=== PATIENT | male | born 1970 | race Two or more races ===

== ENCOUNTER 2024-04-30 10:03 | Emergency (ER) | payer MEDICAID, SELFPAY ==
[2024-04-30 10:12] VITALS: BP 151/89; PULSE 96; RESP 16; TEMP 36.7; O2SAT 96; BMI 27.6
--- NOTE | 2024-04-30 10:27 | EDNOTE_ITS ---
ED Skin Abcess FB-RME/HPI General Chief complaint: Skin/Abscess/Foreign Body Stated complaint: SORES BOTH ARMS x 4 DAYS Time Seen by Provider: 04/30/24 10:12 Source: patient Arrival date/time: 04/30/24 10:03 This is a 53-year-old male who presents to the emergency department with compla ints of small eruptions that appear infected to bilateral arms. Noticed the largest 1 is on the right mid forearm. He did attempt to express the 1 on the right however no discharge. Denies any other concerns. Denies fever lethargy or chills. Mode of arrival: ambulatory Limitations: no limitations Related Data Previous Rx's ?Medication ?Instructions ?Recorded mupirocin 2 % topical ointment 1 applic topical BID 7 days #22 04/30/24 grams sulfamethoxazole 800 1 tab PO BID 7 days #14 tabs 04/30/24 mg-trimethoprim 160 mg tablet (Bactrim DS) Allergies Allergy/AdvReac Type Severity Reaction Status Date / Time No Known Allergies Allergy Verified 04/30/24 10:06 Review of Systems Review of Systems Systems Reviewed: All systems reviewed, normal except as documented Narrative Review of Systems: Gen: No fever, no chills, no weight loss EYES: No discharge, no visual changes, no pain HEENT: No ear pain, no congestion, no sore throat PULM: No shortness of breath, no cough, no congestion CV: No chest pain, no dyspnea on exertion, no palpitations GI: No nausea, no vomiting, no diarrhea, no pain, no constipation : No frequency, no urgency, no dysuria Musc/skel: No joint pain, no back pain Skin: Folliculitis, skin infection. Psyc: No hallucinations, no depression Heme/Lymph: No easy bleeding or bruising tendencies Neuro: No weakness, no headache ED Exam General Limitations: Present no limitations General appearance: Present alert and in no apparent distress Head Head exam: Present atraumatic Eye Eye exam: Present normal appearance, PERRL and EOMI ENT ENT exam: Present normal exam, normal oropharynx and mucous membranes moist Neck Neck exam: Present normal inspection, full ROM and trachea midline Chest Chest inspection: Present normal inspection and symmetric chest wall rise Respiratory Respiratory exam: Present normal lung sounds bilaterally Cardiovascular Cardiovascular exam: Present regular rate, normal rhythm and normal heart sounds Abdominal Exam Abdominal exam: Present soft and normal bowel sounds Extremities Exam Extremities exam: Present full ROM Expanded Upper Extremity Exam Shoulder exam: Present normal inspection Arm exam: Present other (Bilateral arms small folliculitis and cellulitis pattern no abscess formation.) Back Exam Back exam: Present normal inspection and full ROM Neurological Exam Neurological exam: Present alert, oriented X3 and CN II-XII intact Psychiatric Psychiatric exam: Present normal affect and normal mood Skin Skin exam: Present warm, dry, intact and normal color Course Quality Measures none Orders Category Date Time Status Bedside Blood Glucose NOW Care 04/30/24 10:21 Completed cefTRIAXone [Rocephin] 1,000 mg Med 04/30/24 10:21 Discontinued Lidocaine 1% 20 ml [Xylocaine 1% 20 ML] 2.1 ml IM X1 Vital Signs Vital signs: Vital Signs Temperature 98.1 F 04/30/24 10:12 Pulse Rate 96 04/30/24 10:12 Respiratory Rate 16 04/30/24 10:12 Blood Pressure 151/89 H 04/30/24 10:12 Pulse Oximetry (%) 96 04/30/24 10:12 Oxygen Delivery Method Room Air 04/30/24 10:12 Skin / Abscess / Foreign Body MDM Narrative MDM Narrative:: 53-year-old male presents with initial presentation of local erythema, warmth, swelling concerning for cellulitis. Sensitivity/pain to light touch around the erythematous area. No lymphangitic spread visible and no fluid pockets or fluctuance c/f abscess noted. Low c/f osteomyelitis or DVT. No immune compromise, bullae, pain out of proportion, or rapid progression c/f necrotizing fasciitis. Rx: Bactrim DS twice daily 7 days, mupirocin application twice daily for 5 days. Disposition: No evidence of serious bacterial illness requiring admission for IV antibiotics. Nontoxic appearing, VSS. Will discharge home with PO antibiotics and return precautions discussed at bedside. Patient data External records reviewed:: [facility] previous records Clinical information provided by:: patient Social determinants that could affect healthcare access:: none Patient has the following chronic illnesses:: None reported How is presenting disease/condition affected by chronic disease/condition?: no chronic disease Evaluation data The following diagnostics were reviewed and interpreted by me:: other (specify) Lab and/or radiology exams considered but not ordered:: No Interpretation Summary: None Medications / Prescriptions Medications or Prescriptions considered but not ordered:: Antibiotics Medication administrations:: Medication Administration History Discontinued Medications Ceftriaxone Sodium 1,000 mg/ (Lidocaine HCl 2.1 ml) 0 mg IM X1 ONE Stop: 04/30/24 10:22 Last Admin: 04/30/24 10:31 Dose: 2.1 mg Documented By: NAV All medications administered and effective Consultations Consultation(s) initiated? (list below): No Diagnosis Skin/Abscess Differential Diagnosis: abscess of skin or subcutaneous tissue, urticaria, allergic reaction to drug, cellulitis, eczema, insect bites and contact dermatitis Most likely diagnosis given after review of the tests above:: Cellulitis forearm Admission Indicated Admission indicated?: not indicated Admission Request Was there a request for admission?: No Disposition Plan Disposition Plan: Discharge Discharge Attestation Discharge Attestation: The patient and all family members were given an opportunity to ask questions and understood the discharge instructions. Discharge instructions specifically effects, indications for sooner follow up or return to the emergency department, and the expected course of current diagnosis. Patient condition: Stable Discharge Plan Plan Patient Disposition: HOME (Self Care) Patient condition on transfer: Stable Prescriptions/Referrals Prescriptions/Med Rec: New sulfamethoxazole-trimethoprim [Bactrim DS] 800-160 mg tablet 1 tab PO BID 7 Days Qty: 14 0RF mupirocin 2 % ointment 1 applic topical BID 7 Days Qty: 22 0RF Problem List Clinical Impression: Cellulitis Patient/Caregiver Discharge Instructions Education Materials: ED Cellulitis Additional Instructions: Please keep area clean and dry apply antibiotic as directed. mri supervisor your antibiotics and take for the indicated time. Please do not pick or squeeze the area as it can worsen your symptoms. Keep areas clean and dry. Follow-up with your clinic or doctor in 2 days to follow-up Return to the emergency department this any worsening symptoms change in condition. Print Language: [place] Helen[place] Stand Alone Forms: Vani Award Info., Patient Portal Info Letter PA/RHONA Supervising Physician PA/RHONA Supervising Physician: Dr Figueroa
[2024-04-30] MEDS: cefTRIAXone 1,000 MG, LIDOCAINE 1% 20 ML 2.1 ML IM (10:31)
== END 2024-04-30 10:34 | disposition home or self-care (01) ==
LOC: SERX 10:41
PROVIDERS: Emergency Provider Emergency Medicine
DX: L03.114 Cellulitis of left upper limb (principal); L03.113 Cellulitis of right upper limb
CPT/HCPCS: 96372; 99283; J0696; J3490

== ENCOUNTER 2024-06-12 18:02 | Emergency (ER) | payer MEDICAID, SELFPAY ==
[2024-06-12 18:19] VITALS: BP 138/85; PULSE 97; RESP 20; TEMP 37.3; O2SAT 97
--- NOTE | 2024-06-12 18:30 | XR_ITS ---
Examination: Duplex scan of the lower extremity, unilateral right Date and time of exam: June 12, 2024 at 2000 hrs. Indications: Right leg redness swelling and pain beginning 4 days ago Technique: Duplex scan of the extremity veins using B-mode/grayscale imaging and Doppler spectral analysis and color flow Attention is directed to internal echogenicity, compression and augmentation involving these veins, color flow assessment, spectral analysis Findings: Major deep venous structures in the extremity demonstrate normal course and caliber. There is no evidence of deep vein thrombosis. Normal color flow and spectral analysis Impression: Negative for DVT..
--- NOTE | 2024-06-12 18:31 | PD.EDRME ---
Rapid Medical Screening Exam RME Arrival date/time: 06/12/24 18:02 53-year-old male with no significant past medical history presents emergency department complaining of right lower extremity swelling and edema that is been ongoing for 3 days. Patient reports was climbing in the attic and thinks he might have been bit by a spider. Chief Complaint: Animal Bite Time Seen by Provider: 06/12/24 18:16 Vital signs: Vital Signs Temperature 99.1 F 06/12/24 18:19 Pulse Rate 97 06/12/24 18:19 Respiratory Rate 20 06/12/24 18:19 Blood Pressure 138/85 H 06/12/24 18:19 Pulse Oximetry (%) 97 06/12/24 18:19 Oxygen Delivery Method Room Air 06/12/24 18:19 Vital signs reviewed by provider: Yes
[2024-06-12] MEDS: KETOROLAC INJ 60 MG/2 ML VIAL 30 MG IM (18:46)
[2024-06-12 19:14] LABS: Lactate (Lactic Acid) 1.4 mMol/L (0.4-2.0)
[2024-06-12 19:15] LABS: Basophils % (Auto) 0 % (0-2.5); Eosinophils # (Auto) 0.1 Thou/mm3 (0.0-0.5); Eosinophils % (Auto) 0 % (0-10); Immature Granulocytes % (Auto) 0 % (0-0); Immature Granulocytes Auto 0.05 Thou/mm3 (0.00-0.00); Lymphocytes # (Auto) 1.5 Thou/mm3 (1.0-4.8); Lymphocytes % (Auto) 10 % (10-50); Mean Corpuscular HGB Conc 34.2 g/dl (31.0-37.0); Mean Corpuscular Hemoglobin 31.2 pg (25.0-35.0); Mean Corpuscular Volume 91 fL (80-100); Monocytes # (Auto) 1.1 Thou/mm3 (0.0-0.8); Monocytes % (Auto) 7 % (0-12); Neutrophils # (Auto) 12.9 Thou/mm3 (1.8-7.7); Neutrophils % (Auto) 83 % (37-80); Nucleated Red Blood Cell % 0 /100 WBC (0); Platelet Count 346 Thou/mm3 (140-440); RDW Standard Deviation 41.4 fL (35.1-43.9); Red Blood Count 4.17 Miln/mm3 (4.50-5.90); White Blood Count 15.6 Thou/mm3 (3.8-10.6)
[2024-06-12 19:51] LABS: Alanine Aminotransferase 18 U/L (10-49); Albumin, Serum 4.2 gm/dL (3.5-5.0); Albumin/Globulin Ratio 1.3 (1.2-2.2); Anion Gap 6 (7-16); Aspartate Amino Transferase 16 U/L (0-34); BUN/Creatinine Ratio 14 Ratio (12-20); Bilirubin,Total 0.4 mg/dL (0.3-1.2); Blood Urea Nitrogen 11 mg/dL (9-23); Calcium 9.2 mg/dL (8.3-10.6); Calcium (Corrected) 9.2 mg/dL (8.5-10.1); Carbon Dioxide 26.8 mMol/L (20.0-31.0); Chloride 103 mMol/L (98-107); Creatinine (Component) 0.8 mg/dL (0.6-1.3); Globulin 3.2 gm/dL (2.3-3.5); Glucose 92 mg/dL (74-106); Osmolality,Calculated 271 (275-295); Potassium 3.7 mMol/L (3.4-5.1); Procalcitonin 0.04 ng/ml (0.0-0.49); Sodium 136 mMol/L (136-145); Total Protein 7.4 gm/dL (5.7-8.2); eGFR > 60 See Note
[2024-06-12 20:12] LABS: Alkaline Phosphatase 53 U/L (46-116)
--- NOTE | 2024-06-12 21:20 | EDNOTE_ITS ---
<Statement entered by Melinda Simental MD - 06/13/24 01:44> As co-signing physician, I was present and available for consult prn. I concur with the plan and care as documented by the midlevel provider. ED Animal Bite RME/HPI General Chief Complaint: Animal Bite Stated Complaint: POSSIBLE SPIDER BITE TO RIGHT LEG Time Seen by Provider: 06/12/24 18:16 Source: patient Arrival date/time: 06/12/24 18:02 53-year-old male with no significant past medical history presents emergency department complaining of right lower extremity swelling and edema that is been ongoing for 3 days. Patient reports was climbing in the attic and thinks he might have been bit by a spider. Patient denies any fever, chills, IV drug use, or any other associated symptom. Mode of arrival: ambulatory Limitations: no limitations RME / HPI RME / HPI narrative: 06/12/24 18:02 53-year-old male with no significant past medical history presents emergency department complaining of right lower extremity swelling and edema that is been ongoing for 3 days. Patient reports was climbing in the attic and thinks he might have been bit by a spider. Related Data Patient tetanus UTD: Yes Previous Rx's ?Medication ?Instructions ?Recorded clindamycin HCl 150 mg capsule 450 mg (3 x 150 mg) PO TID 7 days 06/12/24 (Cleocin HCl) #63 caps Allergies Allergy/AdvReac Type Severity Reaction Status Date / Time No Known Allergies Allergy Verified 04/30/24 10:06 Review of Systems Review of Systems Systems Reviewed: All systems reviewed, normal except as documented Constitutional Constitutional: Reports system reviewed and no additional complaints, except as documented, Denies body ache(s), Denies chills and Denies fever(s) Eyes Eyes: Reports system reviewed and no additional complaints, except as documented and Denies change in vision ENT Ears, Nose, Mouth, and Throat: Reports system reviewed and no additional complaints, except as documented, Denies disequilibrium, Denies dizziness, Denies sore throat and Denies vertigo Cardiovascular Cardiovascular: Reports system reviewed and no additional complaints, except as documented, Denies chest pain and Denies dyspnea Respiratory Respiratory: Reports system reviewed and no additional complaints, except as documented, Denies chest congestion, Denies cough and Denies dyspnea Gastrointestinal Gastrointestinal: Reports system reviewed and no additional complaints, except as documented, Denies abdominal pain, Denies nausea and Denies vomiting Musculoskeletal Musculoskeletal: Reports system reviewed and no additional complaints, except as documented, Denies abnormal gait and Denies arthralgias Integumentary/Breasts Skin/Breast: Reports system reviewed and no additional complaints, except as documented, Reports erythema, Denies rash, Reports skin swelling and Denies wounds Neurologic Neurologic: Reports system reviewed and no additional complaints, except as documented, Denies abnormal gait, Denies disequilibrium, Denies dizziness and Denies vertigo Past Medical History Past Medical History CARDIAC: Negative Congestive Heart Failure RESPIRATORY: Negative Chronic Obstructive Pulmonary Disease (COPD) GENITOURINARY: Negative Renal Disease ENDOCRINE: Negative Diabetes Mellitus Type 1 or Diabetes Mellitus Type 2 Social History SMOKING STATUS: Current every day smoker ED Exam General Limitations: Present no limitations General appearance: Present alert and in no apparent distress Head Head exam: Present atraumatic Eye Eye exam: Present normal appearance, PERRL and EOMI ENT ENT exam: Present normal exam, normal oropharynx and mucous membranes moist Neck Neck exam: Present normal inspection, full ROM and trachea midline Chest Chest inspection: Present normal inspection and symmetric chest wall rise Respiratory Respiratory exam: Present normal lung sounds bilaterally Cardiovascular Cardiovascular exam: Present regular rate, normal rhythm and normal heart sounds Abdominal Exam Abdominal exam: Present soft and normal bowel sounds Extremities Exam Extremities exam: Present normal inspection and full ROM Expanded Lower Extremity Exam Leg image: 2 1. +1 edema with localized erythema warm to touch and induration. No obvious drainage or open wound Gait: observed and normal Back Exam Back exam: Present normal inspection and full ROM Neurological Exam Neurological exam: Present alert, oriented X3 and CN II-XII intact Psychiatric Psychiatric exam: Present normal affect and normal mood Skin Skin exam: Present warm, dry, intact and normal color Course Quality Measures none Orders Category Date Time Status US venous doppler LE RT Stat Exams 06/12/24 18:30 Completed Blood Culture (Lab) Stat Lab 06/12/24 18:51 Received CBC Stat Lab 06/12/24 18:55 Completed CMP [Comprehensive Metabolic Panel] Stat Lab 06/12/24 18:55 Completed Lactic Acid [Lactate (Lactic Acid)] Stat Lab 06/12/24 18:55 Completed Procalcitonin Stat Lab 06/12/24 18:55 Completed Ketorolac Inj [Toradol Inj] Med 06/12/24 18:31 Discontinued 30 mg IM X1 ONE cefTRIAXone [Rocephin] 1,000 mg Med 06/12/24 21:21 Discontinued Lidocaine 1% 20 ml [Xylocaine 1% 20 ML] 2.1 ml IM X1 Vital Signs Vital signs: Vital Signs Temperature 99.1 F 06/12/24 18:19 Pulse Rate 97 06/12/24 18:19 Respiratory Rate 20 06/12/24 18:19 Blood Pressure 138/85 H 06/12/24 18:19 Pulse Oximetry (%) 97 06/12/24 18:19 Oxygen Delivery Method Room Air 06/12/24 18:19 97% room air within normal limits Animal Bite MDM Narrative MDM Narrative:: 53-year-old male with no significant past medical history presents emergency department complaining of right lower extremity swelling and edema that is been ongoing for 3 days. Patient reports was climbing in the attic and thinks he might have been bit by a spider. Patient denies any fever, chills, IV drug use, or any other associated symptom. CBC leukocytosis 15.6. CMP was unremarkable with normal lactate and normal procalcitonin. Ultrasound right lower extremity unremarkable for any DVT. Patient does not meet any SIRS criteria and is hemodynamically stable. Patient stable for outpatient treatment was given IM Rocephin and discharged on clindamycin. Patient given strict instructions to return to emergency department in 3 days for reevaluation of right lower extremity return immediately to emergency department for any worsening symptoms worsening infection or as needed. Patient data External records reviewed:: [facility] previous records Clinical information provided by:: patient Social determinants that could affect healthcare access:: none Patient has the following chronic illnesses:: None How is presenting disease/condition affected by chronic disease/condition?: no chronic disease Evaluation data The following diagnostics were reviewed and interpreted by me:: lab results and radiology exam(s) Lab and/or radiology exams considered but not ordered:: Ordered Interpretation Summary: Interpreted by me Medications / Prescriptions Medications or Prescriptions considered but not ordered:: Ordered Medication administrations:: Medication Administration History Discontinued Medications Ceftriaxone Sodium 1,000 mg/ (Lidocaine HCl 2.1 ml) 0 mg IM X1 ONE Stop: 06/12/24 21:22 Last Admin: 06/12/24 21:30 Dose: 350 mg Documented By: MANJU Ketorolac Tromethamine (Ketorolac Inj 60 Mg/2 Ml Vial) 30 mg IM X1 ONE Stop: 06/12/24 18:32 Last Admin: 06/12/24 18:46 Dose: 30 mg Documented By: KF Given Consultations Consultation(s) initiated? (list below): No Diagnosis Differential diagnosis animal bite: bite by animal, cat bite, dog bite, rabies contact and other (DVT, cellulitis, erysipelas) Most likely diagnosis given after review of the tests above:: Cellulitis of right leg Admission Indicated Admission indicated?: not indicated Admission Request Was there a request for admission?: No Disposition Plan Disposition Plan: Discharge Discharge Attestation Discharge Attestation: The patient and all family members were given an opportunity to ask questions and understood the discharge instructions. Discharge instructions specifically effects, indications for sooner follow up or return to the emergency department, and the expected course of current diagnosis. Patient condition: Stable Discharge Plan Plan Patient Disposition: HOME (Self Care) Disposition Comment: Stable Prescriptions/Referrals Prescriptions/Med Rec: New clindamycin HCl [Cleocin HCl] 150 mg capsule 450 mg PO TID 7 Days Qty: 63 0RF Referrals: No Primary/Family,Physician [Primary Care Provider] - In 1 week Problem List Clinical Impression: Cellulitis of right leg Patient/Caregiver Discharge Instructions Discharge Activity: activity as tolerated Education Materials: Discharge Instructions for Cellulitis, ED Cellulitis Additional Instructions: Drink plenty of fluids and stay hydrated. Take [id number] Tylenol or ibuprofen as needed for pain. Take antibiotics as prescribed. Return to the emergency department in 3 days for reevaluation of right lower leg infection. Return immediately to emergency department if you develop any fevers, worsening pain, worsening symptoms or as needed. Print Language: Pashto Stand Alone Forms: Vani Award Info., Patient Portal Info Letter PA/RHONA Supervising Physician STEPHON/RHONA Supervising Physician: Dr. Simental
[2024-06-12] MEDS: cefTRIAXone 1,000 MG, LIDOCAINE 1% 20 ML 2.1 ML IM (21:30)
[2024-06-12 21:34] VITALS: BP 130/72; PULSE 86; RESP 18; TEMP 37.2; O2SAT 98
== END 2024-06-12 21:35 | disposition home or self-care (01) ==
PROVIDERS: Emergency Provider Emergency Medicine
DX: L03.115 Cellulitis of right lower limb (principal)
CPT/HCPCS: 36415; 80053; 80307; 81001; 83605; 84145; 85025; 87040; 93971; 96372; 99284; J0696; J1885; J3490

== ENCOUNTER 2024-06-14 11:52 | Inpatient (IN) | payer MEDICAID, SELFPAY ==
--- NOTE | 2024-06-14 12:15 | XR_ITS ---
Examination: Tibia-Fibula, right , 2 views Technique: Tibia-fibula AP lateral 2 views Date and time of exam: June 14, 2024 1248 hrs. Indications: Spider bite last week with leg pain and swelling Findings: Edema in the soft tissue proximal lower leg and medial side No fracture No cortical bone destruction No foreign body Impression: No cortical bone destruction
--- NOTE | 2024-06-14 12:15 | XR_ITS ---
Examination: Knee, right , 3 views Technique: Knee AP, lateral, oblique 3 views Date and time of exam: June 14, 2024 1222 hrs. Indications: Spider bite one week ago to the knee with knee pain. Findings: No acute fracture Small knee effusion No cortical bone destruction Mild tricompartment osteoarthritis Impression: No cortical bone destruction
[2024-06-14 12:18] VITALS: BP 134/77; PULSE 100; RESP 18; TEMP 37.7; O2SAT 97; BMI 25.0
--- NOTE | 2024-06-14 12:18 | PD.EDRME ---
Rapid Medical Screening Exam RME Arrival date/time: 06/14/24 11:52 53-year-old male presents to the emergency department complaints of right lower extremity swelling and infection patient was here 2 days ago reports symptoms have worsened patient symptoms ongoing x 1 week Chief Complaint: Skin/Abscess/Foreign Body
--- NOTE | 2024-06-14 13:05 | XR_ITS ---
Examination: Duplex scan of the lower extremity, unilateral right complete Date and time of exam: June 14, 2024 at 1343 hrs. Indications: Redness swelling and pain beginning 6 days ago involving the right leg Technique: Duplex scan of the extremity veins using B-mode/grayscale imaging and Doppler spectral analysis and color flow Attention is directed to internal echogenicity, compression and augmentation involving these veins, color flow assessment, spectral analysis Findings: Major deep venous structures in the extremity demonstrate normal course and caliber. There is no evidence of deep vein thrombosis. Normal color flow and spectral analysis Impression: Negative for DVT..
--- NOTE | 2024-06-14 13:06 | EDNOTE_ITS ---
ED General RME/HPI General Chief complaint: Skin/Abscess/Foreign Body Stated complaint: FEVER, RIGHT LEG PAIN/SWELLING Time Seen by Provider: 06/14/24 13:00 Arrival date/time: 06/14/24 11:52 CC: Right lower extremity redness pain and swelling HPI ongoing for the past 6 days was seen here 3 days ago for the same complaint patient had redness with swelling to the knee and now it is to the medial thigh. The patient has a large ulceration to the anterior surface midshaft tibia of the right lower extremity. Patient states intermittent fevers but none today. No prior history of similar events takes no medicines no allergies has no PCP. Patient was started on clindamycin 3 to go years ago with progressive worsening. Localized pain is 3-4 out of 10 scale. RME / HPI RME / HPI narrative: 06/14/24 11:52 53-year-old male presents to the emergency department complaints of right lower extremity swelling and infection patient was here 2 days ago reports symptoms have worsened patient symptoms ongoing x 1 week Related Data Previous Rx's ?Medication ?Instructions ?Recorded clindamycin HCl 150 mg capsule 450 mg (3 x 150 mg) PO TID 7 days 06/12/24 (Cleocin HCl) #63 caps Allergies Allergy/AdvReac Type Severity Reaction Status Date / Time No Known Allergies Allergy Verified 04/30/24 10:06 Review of Systems Review of Systems Narrative Review of Systems: GEN: No fever, no chills, no weight loss EYES: No discharge, no visual changes, no pain HEENT: No ear pain, no congestion, no sore throat PULM: No shortness of breath, no cough, no congestion CV: No chest pain, no dyspnea on exertion, no palpitations GI: No nausea, no vomiting, no diarrhea, no pain, no constipation : No frequency, no urgency, no dysuria MUSC/SKEL: No joint pain, no back pain SKIN: + Redness tenderness to right lower extremity, no rash PSYCH: No hallucinations, no depression HEME/LYMPH: No easy bleeding or bruising tendencies NEURO: No weakness, no headache Past Medical History Past Medical History CARDIAC: Negative Congestive Heart Failure RESPIRATORY: Negative Chronic Obstructive Pulmonary Disease (COPD) GENITOURINARY: Negative Renal Disease ENDOCRINE: Negative Diabetes Mellitus Type 1 or Diabetes Mellitus Type 2 Social History SMOKING STATUS: Heavy (> 1 pack/day) ED Exam Narrative Physical exam: [General: Not in any acute distress Head normocephalic HEENT: Within acceptable limits Neck is supple nontender Chest equal chest rise nontender to palpation Respiratory: Clear to auscultation no wheezes crackles or rubs CV: Rate rhythm is regular no murmurs rubs or clicks Abdomen is flat, soft nontender no masses positive bowel sounds all 4 quadrants Back: No CVA tenderness no spinous process tenderness from cervical spine thoracic and lumbar spine Skin: Open circular ulceration to the midshaft tibial anterior spine with surrounding erythema that extends circumferential from the ankle proximally to the medial thigh including erythema around the knee. Site is warm and tender to touch. No calf tenderness or open ulcerations. 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 Otherwise skin is intact no petechiae rash induration ulceration or crepitus Extremities: Moving all extremity against resistance cap refill less than 2 seconds neurosensory intact Neuro: Awake alert oriented x3 Glascow coma 15 no focal deficits] Course Quality Measures none Orders Category Date Time Status US venous doppler LE RT Stat Exams 06/14/24 13:05 Ordered XR knee RT 3V Stat Exams 06/14/24 12:15 Completed XR tibia fibula RT 2V Stat Exams 06/14/24 12:15 Completed Blood Culture (Lab) Stat Lab 06/14/24 13:02 Received CBC Stat Lab 06/14/24 13:09 Completed CMP [Comprehensive Metabolic Panel] Stat Lab 06/14/24 13:09 Completed CRP [C-Reactive Protein] Stat Lab 06/14/24 13:09 Completed ESR [Sed Rate (ESR)] Stat Lab 06/14/24 13:09 Completed Lactic Acid [Lactate (Lactic Acid)] Stat Lab 06/14/24 13:09 Completed PT [Prothrombin Time with INR] Stat Lab 06/14/24 13:02 Completed PTT [Partial Thromboplastin Time] Stat Lab 06/14/24 13:02 Completed Procalcitonin Stat Lab 06/14/24 13:09 Completed Piper/Tazo Inj [Zosyn Inj] 3.375 gm Med 06/14/24 12:16 Discontinued SODIUM CHLORIDE 0.9% (Popper) [NS 0.9% (Popper)] 50 ml IV X1 Vancomycin Inj 1,000 mg Med 06/14/24 12:16 Discontinued Sodium Chloride 0.9% 250 ml [Ns] 250 ml IV X1 Vital Signs Vital signs: Vital Signs Temperature 99.9 F 06/14/24 12:18 Pulse Rate 100 06/14/24 12:18 Respiratory Rate 18 06/14/24 12:18 Blood Pressure 134/77 H 06/14/24 12:18 Pulse Oximetry (%) 97 06/14/24 12:18 Oxygen Delivery Method Room Air 06/14/24 12:18 MDM Patient data External records reviewed:: [facility] previous records Clinical information provided by:: patient Social determinants that could affect healthcare access:: none Patient has the following chronic illnesses:: None How is presenting disease/condition affected by chronic disease/condition?: u neffected by Evaluation data The following diagnostics were reviewed and interpreted by me:: lab results and radiology exam(s) Lab and/or radiology exams considered but not ordered:: CBC shows a leukocytosis of 14.2 H&H of 12.6 and 36.8 respectively with platelets of 300 coags show PT of 12.3 Chemistry shows sodium 132 no other significant electrolyte imbalances no renal impairment transaminitis or T. bili elevation C-reactive protein of 23.2 Procalcitonin at 0.17 Ultrasound of the leg is negative for DVT. Tib-fib x-ray is negative as well as a knee x-ray negative as interpreted by me and read by radiology for any acute finding requires emergent or immediate intervention. Interpretation Summary: Patient has advancing cellulitis of the right lower leg with outpatient therapy failure. Patient's case presented to the resident for Dr. Villarreal, attending who agrees to accept the patient for admission. Medications Medications considered but not ordered:: None Medication administrations:: Medication Administration History Discontinued Medications Vancomycin HCl 1,000 mg/ (Sodium Chloride) 250 mls @ 150 mls/hr IV X1 ONE Stop: 06/14/24 13:55 Last Admin: 06/14/24 13:46 Dose: 150 mls/hr Documented By: TM Piperacillin Sod/Tazobactam (Sod 3.375 gm/ Sodium Chloride) 50 mls @ 100 mls/hr IV X1 ONE Stop: 06/14/24 12:45 Last Admin: 06/14/24 13:45 Dose: 100 mls/hr Documented By: TM None Consultations Consultation(s) initiated? (list below): No Diagnosis Differential Diagnosis ED Complaint MDM: Cellulitis abscess DVT Most likely diagnosis given after review of the tests above:: Right lower leg cellulitis Admission Indicated Admission indicated?: indicated Explain why admission is indicated or not indicated:: Requires further medical management Admission Request Was there a request for admission?: No Disposition Plan Disposition Plan: Admit Medical Decision Making Differential Diagnosis Differential Diagnosis: Cellulitis abscess DVT Lab Data 06/14/24 13:09 06/14/24 13:09 Labs: Lab Results 06/14/24 06/14/24 Range/Units 13:02 13:09 WBC 14.2 H (3.8-10.6) Thou/mm3 RBC 4.04 L (4.50-5.90) Miln/mm3 Hgb 12.6 L (13.5-16.0) g/dL Hct 36.8 L (41.0-53.0) % MCV 91 (80-100) fL MCH 31.2 (25.0-35.0) pg MCHC 34.2 (31.0-37.0) g/dl RDW Std Deviation 41.1 (35.1-43.9) fL Plt Count 300 D (140-440) Thou/mm3 Neut % (Auto) 91 H (37-80) % Lymph % (Auto) 4 L (10-50) % [place] % (Auto) 4 (0-12) % Eos % (Auto) 0 (0-10) % Baso % (Auto) 0 (0-2.5) % Neut # (Auto) 12.9 H (1.8-7.7) Thou/mm3 Lymph # (Auto) 0.6 L (1.0-4.8) Thou/mm3 [place] # (Auto) 0.6 (0.0-0.8) Thou/mm3 Eos # (Auto) 0.0 (0.0-0.5) Thou/mm3 Baso # (Auto) 0.0 (0.0-0.2) Thou/mm3 Immature Gran # (Auto) 0.06 H (0.00-0.00) Thou/mm3 Absolute Nucleated RBC 0.00 (0.00-0.00) Thou/mm3 Immature Gran % 0 (0-0) % Nucleated RBC % 0 (0) /100 WBC ESR 65 H (0-20) mm/hr PT 12.3 H (9.0-12.2) Seconds INR 1.1 (0.9-1.3) APTT 31.9 (22.0-36.0) Seconds Sodium 132 L (136-145) mMol/L Potassium 4.1 (3.4-5.1) mMol/L Chloride 98 (98-107) mMol/L Carbon Dioxide 27.9 (20.0-31.0) mMol/L Anion Gap 6 L (7-16) BUN 10 (9-23) mg/dL Creatinine 0.9 (0.6-1.3) mg/dL Estim Creat Clear Calc 85.7 (>60) mL/min eGFR > 60 (60 - ) See Note BUN/Creatinine Ratio 11 L (12-20) Ratio Glucose 82 (74-106) mg/dL Calculated Osmolality 262 L (275-295) Lactic Acid 1.0 (0.4-2.0) mMol/L Calcium 9.1 (8.3-10.6) mg/dL Corrected Calcium 9.1 (8.5-10.1) mg/dL Total Bilirubin 0.5 (0.3-1.2) mg/dL AST 19 (0-34) U/L ALT 21 (10-49) U/L Alkaline Phosphatase 54 (46-116) U/L C-Reactive Prot, Quant 23.3 H (0.0-0.9) mg/dL Total Protein 7.3 (5.7-8.2) gm/dL Albumin 4.1 (3.5-5.0) gm/dL Globulin 3.2 (2.3-3.5) gm/dL Albumin/Globulin Ratio 1.3 (1.2-2.2) Procalcitonin 0.17 (0.0-0.49) ng/ml Discharge Plan Plan Patient Disposition: Other Care w/in Hosp ([facility]) Patient condition on transfer: Stable Prescriptions/Referrals Prescriptions/Med Rec: No Action clindamycin HCl [Cleocin HCl] 150 mg capsule 450 mg PO TID 7 Days Qty: 63 0RF Referrals: No Primary/Family,Physician [Primary Care Provider] - In 1 week Problem List Clinical Impression: Cellulitis of right leg Patient/Caregiver Discharge Instructions Print Language: Yakut Stand Alone Forms: Vani Award Info., Patient Portal Info Letter PA/SILK SCREEN PROCESSOR Supervising Physician PA/SILK SCREEN PROCESSOR Supervising Physician: Adan Mg ENP
[2024-06-14 13:28] LABS: Basophils % (Auto) 0 % (0-2.5); Eosinophils % (Auto) 0 % (0-10); Hematocrit 36.8 % (41.0-53.0); Hemoglobin 12.6 g/dL (13.5-16.0); Immature Granulocytes % (Auto) 0 % (0-0); Immature Granulocytes Auto 0.06 Thou/mm3 (0.00-0.00); Lymphocytes # (Auto) 0.6 Thou/mm3 (1.0-4.8); Lymphocytes % (Auto) 4 % (10-50); Mean Corpuscular HGB Conc 34.2 g/dl (31.0-37.0); Mean Corpuscular Hemoglobin 31.2 pg (25.0-35.0); Mean Corpuscular Volume 91 fL (80-100); Monocytes # (Auto) 0.6 Thou/mm3 (0.0-0.8); Monocytes % (Auto) 4 % (0-12); Neutrophils # (Auto) 12.9 Thou/mm3 (1.8-7.7); Neutrophils % (Auto) 91 % (37-80); Nucleated Red Blood Cell % 0 /100 WBC (0); Platelet Count 300 Thou/mm3 (140-440); RDW Standard Deviation 41.1 fL (35.1-43.9); Red Blood Count 4.04 Miln/mm3 (4.50-5.90); White Blood Count 14.2 Thou/mm3 (3.8-10.6)
[2024-06-14 13:37] LABS: Sed Rate (ESR) 65 mm/hr (0-20)
[2024-06-14 13:42] LABS: INR 1.1 (0.9-1.3); Partial Thromboplastin Time 31.9 Seconds (22.0-36.0); Prothrombin Time 12.3 Seconds (9.0-12.2)
[2024-06-14] MEDS: PIPER/TAZO INJ 3.375 GM in SODIUM CHLORIDE 0.9% (Popper) 50 ML IV (13:45)
[2024-06-14] MEDS: Vancomycin Inj 1,000 MG in SODIUM CHLORIDE 0.9% 250 ML 250 ML 150 MG IV (13:46)
[2024-06-14 13:56] LABS: Alanine Aminotransferase 21 U/L (10-49); Albumin, Serum 4.1 gm/dL (3.5-5.0); Albumin/Globulin Ratio 1.3 (1.2-2.2); Anion Gap 6 (7-16); Aspartate Amino Transferase 19 U/L (0-34); BUN/Creatinine Ratio 11 Ratio (12-20); Bilirubin,Total 0.5 mg/dL (0.3-1.2); Blood Urea Nitrogen 10 mg/dL (9-23); C-Reactive Protein 23.3 mg/dL (0.0-0.9); Calcium 9.1 mg/dL (8.3-10.6); Calcium (Corrected) 9.1 mg/dL (8.5-10.1); Carbon Dioxide 27.9 mMol/L (20.0-31.0); Chloride 98 mMol/L (98-107); Creatinine (Component) 0.9 mg/dL (0.6-1.3); Estimated Creatinine Clearance 85.7 mL/min (>60); Globulin 3.2 gm/dL (2.3-3.5); Glucose 82 mg/dL (74-106); Osmolality,Calculated 262 (275-295); Potassium 4.1 mMol/L (3.4-5.1); Procalcitonin 0.17 ng/ml (0.0-0.49); Sodium 132 mMol/L (136-145); Total Protein 7.3 gm/dL (5.7-8.2); eGFR > 60 See Note
[2024-06-14 14:07] LABS: Alkaline Phosphatase 54 U/L (46-116)
[2024-06-14 14:58] LABS: Glucose Estimated Average 108 mg/dL (80-131); Hemoglobin A1C 5.4 % Hgb (4.8-6.0)
[2024-06-14] MEDS: SODIUM CHLORIDE 0.9% 1000 ML 1,000 ML 999 ML IV (16:06)
--- NOTE | 2024-06-14 16:09 | PC.NURSE ---
PT UP TO FLOOR AT THIS TIME.
--- NOTE | 2024-06-14 16:14 | PC.NURSE ---
PATIENT ARRIVED ON THE FLOOR RICKY GAVE ME REPORT. WILL CONTINUE TO MONITOR PATIENT
[2024-06-14 16:30] VITALS: BP 134/80; PULSE 102; RESP 18; TEMP 37.6; O2SAT 94
[2024-06-14 16:33] VITALS: BMI 28.0
--- NOTE | 2024-06-14 16:33 | ESHP_ITS ---
<Statement entered by Riley Guadalupe MD - 06/15/24 07:31> Senior Resident Attestation: I supervised/discussed management plan with validation intern physician Dr. Herrera, and was involved in the care of this patient. I personally saw and examined the patient and discussed the assessment and plan with the entire medicine team, including my attending. I agree with the assessment and plan as documented. Patient is a 53 years old male with no significant past medical history presented to the ED complaining of worsening right lower extremity pain and swelling after insect bite and was admitted for management of sepsis secondary to right lower extremity cellulitis with IV antibiotics. Patient's care was discussed with attending physician, Dr. Villarreal. Riley Guadalupe MD PGY-2. Documentation for date of: 06/14/24 HPI History of Present Illness History of present illness: The patient is a 53-year-old male with no significant past medical history who presented to the ED on 06/14/2024 with complaints of right lower extremity pain, swelling and erythema. Per patient and at bedside, about 6 days ago he had what he thinks might have been an insect/spider bite which was pruritic in nature and after a lot of scratching, had elevated blister subsequently, he noticed the area became more painful and started having some swelling and redness over the next 3 days. Three days prior, the patient presented to the ED where he was discharged on oral clindamycin but swelling and pain worsened and the initial point of the blister had gotten progressively larger with suspicion of some purulent discharge. Additionally, he endorses subjective fever and chills. Patient has not had a similar episode in the past, is not diabetic and does not remember any trauma to this area. ED course: In the ED, the patient was febrile, had a temperature of 102.4, slightly tachycardic but saturating 97% on room air. Significant labs include WBC of 14.2, hemoglobin of 12.6, ESR of 65, some hyponatremia at 132, CRP of 23.3.Knee x-ray was done which showed no cortical bone destruction. Liver ultrasound was done which was negative for DVT. The patient was started on IV Zosyn and vancomycin and has been admitted for further evaluation and management of cellulitis, refractory to outpatient treatment. PMHx-nil PSHx-nil Social history-smokes a little under a pack of cigarettes a day, social drinker, occasional marijuana Home meds-none Allergies-none Review of Systems Review of Systems Narrative Review of Systems: GENERAL: Admits subjective fevers and chills HEENT: Denies headache or visual/hearing changes. Denies nasal discharge. NEURO: Denies unusual weakness or difficulty speaking. CARDIO: Denies chest pain or palpitations. PULM: Denies SOB, coughing, or wheezing. GI: Denies abdominal pain, N/V/C/D/reflux/gas, bright red blood per rectum or melena. Reports having BMs. URO: Denies burning/itching/pain/urinary changes. MSK/EXT/SKIN: Admits pain in the right lower extremity, extending from the thigh downwards PSYCH: Cooperative, pleasant mood & affect. 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 Eyes open, symmetrical, & clear CARDIO: No chest pain on palpation. Heart RRR, no obvious murmurs PULM: No noted coughing/dyspnea. Lungs CTA B/L, no R/W/R GI: Abdomen soft, nondistended, no pain on palpation. BSx4 URO/DRAUGHTSMAN:: No further abnormalities noted. SKIN/MSK/EXT: Right lower extremity with erythema, demarcated borders. On the anterior, a 5 x 6 cm raised soft tissue swelling, with no active purulent discharge-resembling an abscess/granulation tissue. Erythema extends from the medial aspect of the right thigh down once to the right foods, less tender to touch and warm. Entire right lower extremity swollen compared to the other. Results: Labs 06/15/24 04:41 06/15/24 04:41 Labs: Short CBC 06/14/24 Range/Units 13:09 WBC 14.2 H (3.8-10.6) Thou/mm3 Hgb 12.6 L (13.5-16.0) g/dL Hct 36.8 L (41.0-53.0) % Plt Count 300 D (140-440) Thou/mm3 BMP 06/14/24 13:09 Sodium 132 L Potassium 4.1 Chloride 98 Carbon Dioxide 27.9 BUN 10 Creatinine 0.9 Glucose 82 Calcium 9.1 Liver Function 06/14/24 Range/Units 13:09 Total Bilirubin 0.5 (0.3-1.2) mg/dL AST 19 (0-34) U/L ALT 21 (10-49) U/L Alkaline Phosphatase 54 (46-116) U/L Albumin 4.1 (3.5-5.0) gm/dL Quality Measures Quality Measures none Medications Home Medications and Allergies Allergies Allergy/AdvReac Type Severity Reaction Status Date / Time No Known Allergies Allergy Verified 04/30/24 10:06 Visit Medications Acetaminophen (Acetaminophen 325 Mg Tablet) 650 mg PO Q6H PRN PRN Reason: Pain 1-3 or Fever >100.3 Stop: 07/14/24 15:06 Hydrocodone Bitart/Acetaminophen (Hydrocodone/Apap 5/325 Tablet) 1 tab PO Q4HR PRN PRN Reason: PAIN SCALE 4-6 (Moderate Stop: 06/19/24 15:06 Heparin Sodium (Porcine) (Heparin Sod Inj 5000 Unit/Ml Vial) 5,000 unit SC Q12HR NEMO Stop: 06/28/24 20:59 Vancomycin/Sodium Chloride (Vancomycin/Ns 1 Gm Ivpb) 200 mls @ 120 mls/hr IV BID@1000,2200 NEMO Stop: 06/22/24 09:59 Vancomycin/Sodium Chloride (Vancomycin/Ns 1 Gm Ivpb) 200 mls @ 120 mls/hr IV X1 ONE Stop: 06/14/24 23:39 Morphine Sulfate (Morphine Sulf Inj 10 Mg/Ml Vial) 2 mg IVP Q4HR PRN PRN Reason: PAIN SCALE 7-10 (Severe Stop: 06/19/24 15:06 Ondansetron HCl (Ondansetron Inj 2 Mg/Ml Inj 2 Ml) 4 mg IV Q6H PRN; Protocol PRN Reason: NAUSEA OR VOMITING Stop: 07/14/24 15:06 Pharmacy Consult (Vancomycin Pharmacy To Dose 1 Each Each) 1 each IV QDAY PRN PRN Reason: consult Stop: 07/15/24 08:59 Discontinued Medications Vancomycin HCl 1,000 mg/ (Sodium Chloride) 250 mls @ 150 mls/hr IV X1 ONE Stop: 06/14/24 13:55 Last Infusion: 06/14/24 15:43 Dose: Infused Piperacillin Sod/Tazobactam (Sod 3.375 gm/ Sodium Chloride) 50 mls @ 100 mls/hr IV X1 ONE Stop: 06/14/24 12:45 Last Infusion: 06/14/24 14:15 Dose: Infused Sodium Chloride (Ns) 1,000 mls @ 999 mls/hr IV .Q1H1M ONE Stop: 06/14/24 16:09 Last Admin: 06/14/24 16:06 Dose: 999 mls/hr Morphine Sulfate (Morphine Sulf Inj 10 Mg/Ml Vial) 1 mg IVP Q4HR PRN PRN Reason: PAIN SCALE 7-10 (Severe Stop: 06/19/24 15:06 Assessment & Plan Plan Summary: The patient is a 53-year-old male with no significant past medical history presents to the ED on 06/14/2024 with complaints of right lower extremity pain, swelling and erythema. #Sepsis #Right lower extremity cellulitis Per the patient, about 6 days ago he had what he thinks might have been an insect/spider bite which was pruritic in nature and after a lot of scratching, had elevated blister subsequently, he noticed the area became more painful and started having some swelling and redness over the next 3 days. Three days prior, the patient presented to the ED where he was discharged on oral clindamycin but swelling and pain worsened and the initial point of the blister had gotten progressively larger with suspicion of some purulent discharge. In the ED, patient was febrile and slightly tachycardic, labs significant for leukocytosis, elevated ESR and CRP. He received IV Zosyn and vancomycin. A1c-5.4 Plan: -Admit to Medr -Bolus of IV NS, 1 L with maintenance at 80 cc/h -Continue IV vancomycin -Pain control -Pending blood/wound cultures -Surgery consulted, pressure recommendations -Monitor extremity for extension past marked borders -Continue to monitor labs #Hypoosmolar hyponatremia Admission, sodium level was 132 with osmolality of 262. Patient did report decreased oral intake last couple days and poor appetite. This is likely a result of dehydration. Plan: -Encourage oral intake and monitor Health maintenance: Dispo: MedSurg Diet: Regular diet DVT: SC heparin PT: Not ordered Code: Full Case was discussed with Dr Guadalupe PGY-2 and attending physician, Dr Phil Herrera MD PGY-1 Disclaimer: This note was dictated by speech recognition. Minor errors in legal support specialist may be present due to voice recognition software. Attending Provider Attestation/Addendum I have discussed and was present for the essential components of the history, physical examination, diagnosis, and treatment plan with the resident. I agree with the patient's care as documented by the resident and amended herein by me. Raul Villarreal, . Although this document has been carefully reviewed, there may still be some phonetic and other typographical errors. These errors are purely grammatical due to imperfections in the software program and should not be construed in any way to compromise the substance of the patient's medical care during this visit.
[2024-06-14] MEDS: SODIUM CHLORIDE 0.9% 1000 ML 1,000 ML 80 ML IV (16:51)
[2024-06-14 17:08] VITALS: PULSE 104; RESP 18; RESP 93
--- NOTE | 2024-06-14 18:01 | ESCONSULT_ITS ---
HPI Consult details Consult date: 06/14/24 Reason for consultation narrative: The patient was seen on consultation because of cellulitis of the right leg following a black spider bite. History of present illness: Patient says that he was bitten by a black spider 6 days ago when he came to the emergency room 2 days ago and was found to have some ulceration and was discharged on antibiotics. But he developed increasing symptoms of pain and fever and therefore he came to the emergency room and was admitted for IV antibiotics and further care. He denies any other major medical illness Past Medical History Past Medical History CARDIAC: Negative Congestive Heart Failure RESPIRATORY: Negative Chronic Obstructive Pulmonary Disease (COPD) GENITOURINARY: Negative Renal Disease ENDOCRINE: Negative Diabetes Mellitus Type 1 or Diabetes Mellitus Type 2 OTHER HISTORY: Negative Blood Transfusions, Anesthesia Reactions, MRSA or Cancer Social History SMOKING STATUS: Current every day smoker Meds Home Medications and Allergies Allergies Allergy/AdvReac Type Severity Reaction Status Date / Time No Known Allergies Allergy Verified 04/30/24 10:06 Exam Vital Signs Temp Pulse Resp BP Pulse Ox O2 Del Method 99.6 F 104 H 18 134/80 H 94 L Room Air 06/14/24 16:30 06/14/24 17:08 06/14/24 17:08 06/14/24 16:30 06/14/24 16:30 06/14/24 16:30 Narrative Exam Physical examination revealed slightly obese male who is 5 foot 6 inches tall weighing 174 pounds his vital signs are normal other than pulse rate of 104 Routine Extremities Exam Comments: Examination of the right leg showed considerable swelling from the knee down tow ards the ankle. Patient had an area of possible necrosis over the midportion of the right leg anteriorly. This necrosis is not clear-cut but seem to be developing possible abscess. Patient's pedal pulses are normal Results Results: Laboratory Laboratory Narrative: Patient's laboratory shows WBC of 14,500 Assessment & Plan Additional Assessment Additional comments: Patient cellulitis right leg with ulceration possibly due to black spider bite Plan Plan: We shall continue IV antibiotics and keep the right leg elevated. Please make sure that his right ankle is higher than the right knee for the swelling to go down. No surgical intervention required at this time but will follow.
[2024-06-14 19:57] VITALS: TEMP 38.8
[2024-06-14] MEDS: ACETAMINOPHEN 325 MG TABLET 650 MG PO (19:57)
[2024-06-14 20:00] VITALS: BP 121/76; PULSE 89; RESP 20; TEMP 38.8; O2SAT 92
[2024-06-14] MEDS: HEPARIN SOD INJ 5000 UNIT/ML VIAL SC (20:00)
[2024-06-14 20:57] VITALS: TEMP 37.6
[2024-06-14] MEDS: VANCOMYCIN/NS 1 GM IVPB 200 ML IV (21:01)
[2024-06-15] VITALS (10 sets, daily range): BP systolic 115–136; BP diastolic 69–89; PULSE 78–104; RESP 16–96; TEMP 35.8–38.6; O2SAT 94–96
[2024-06-15] MEDS: ACETAMINOPHEN 325 MG TABLET 650 MG PO (03:07)
[2024-06-15 05:44] LABS: Basophils % (Auto) 0 % (0-2.5); Eosinophils % (Auto) 0 % (0-10); Hematocrit 33.3 % (41.0-53.0); Hemoglobin 11.6 g/dL (13.5-16.0); Immature Granulocytes % (Auto) 0 % (0-0); Immature Granulocytes Auto 0.03 Thou/mm3 (0.00-0.00); Lymphocytes # (Auto) 0.6 Thou/mm3 (1.0-4.8); Lymphocytes % (Auto) 6 % (10-50); Mean Corpuscular HGB Conc 34.8 g/dl (31.0-37.0); Mean Corpuscular Hemoglobin 31.4 pg (25.0-35.0); Mean Corpuscular Volume 90 fL (80-100); Monocytes # (Auto) 0.7 Thou/mm3 (0.0-0.8); Monocytes % (Auto) 7 % (0-12); Neutrophils # (Auto) 8.6 Thou/mm3 (1.8-7.7); Neutrophils % (Auto) 86 % (37-80); Nucleated Red Blood Cell % 0 /100 WBC (0); Platelet Count 290 Thou/mm3 (140-440); RDW Standard Deviation 40.3 fL (35.1-43.9)
[2024-06-15 06:20] LABS: Alanine Aminotransferase 31 U/L (10-49); Albumin, Serum 3.6 gm/dL (3.5-5.0); Albumin/Globulin Ratio 1.3 (1.2-2.2); Alkaline Phosphatase 54 U/L (46-116); Anion Gap 9 (7-16); Aspartate Amino Transferase 28 U/L (0-34); BUN/Creatinine Ratio 13 Ratio (12-20); Bilirubin,Total 0.4 mg/dL (0.3-1.2); Blood Urea Nitrogen 10 mg/dL (9-23); Calcium 8.3 mg/dL (8.3-10.6); Calcium (Corrected) 8.6 mg/dL (8.5-10.1); Carbon Dioxide 23.8 mMol/L (20.0-31.0); Cardiac Risk Estimate 4.3 RATIO (4.0-6.7); Chloride 101 mMol/L (98-107); Cholesterol 146 mg/dL (132-200); Creatinine (Component) 0.8 mg/dL (0.6-1.3); Estimated Creatinine Clearance 105.6 mL/min (>60); Globulin 2.8 gm/dL (2.3-3.5); Glucose 106 mg/dL (74-106); HDL Cholesterol 34 mg/dL (40-60); LDL Cholesterol,Calculated 94 mg/dL (0-130); Magnesium 1.9 mg/dL (1.6-2.6); Osmolality,Calculated 267 (275-295); Phosphorous 2.3 mg/dL (2.4-5.1); Potassium 3.6 mMol/L (3.4-5.1); Sodium 134 mMol/L (136-145); Thyroid Stimulating Hormone 1.33 uIU/mL (0.55-4.78); Total Protein 6.4 gm/dL (5.7-8.2); Triglycerides 92 mg/dL (30-150); eGFR > 60 See Note
[2024-06-15] MEDS: Magnesium Sulfate 2 GM Ivpb 2 GM/50 ML BAG IV (09:06)
[2024-06-15] MEDS: POTASSIUM CHLORIDE 20 mEq TABCR 40 MEQ PO (09:06)
[2024-06-15] MEDS: NAPH,KPH MBDB 1 PACKET (1.5 GM) PO (09:06)
[2024-06-15] MEDS: VANCOMYCIN/NS 1 GM IVPB 200 ML IV ×2 (09:07→21:54)
[2024-06-15] MEDS: HEPARIN SOD INJ 5000 UNIT/ML VIAL SC ×2 (09:08→21:54)
[2024-06-15] MEDS: LACTULOSE SYRUP 20 GM/30 ML UDC PO (11:45)
[2024-06-15] MEDS: HYDROcodone/APAP 5/325 TABLET 1 TAB PO ×2 (14:21→19:33)
[2024-06-15] MEDS: NICOTINE PATCH 14 MG/24 HR PATCH.TD24 TOP (15:03)
--- NOTE | 2024-06-15 15:27 | PD.RESPRO ---
Documentation for date of: 06/15/24 Subjective Subjective Interval history: Patient was seen and examined at bedside this AM. No acute events overnight. Patient tolerating diet, adequate urine output and mentation is at baseline. RT lower extremity pain has improved significantly. Patient endorses improvement of swelling and erythema. Area marked yesterday for cellulitis shows reduction in erythema and edema. Abscess appears to be resolving as well, general surgery evaluated the patient and recommended to continue IV abs. Exam Vital Signs Temp Pulse Resp BP Pulse Ox O2 Del Method 96.5 F L 78 16 135/76 H 96 Room Air 06/15/24 11:30 06/15/24 12:48 06/15/24 12:48 06/15/24 11:30 06/15/24 11:30 06/15/24 11:30 Narrative Exam Constitutional Alert, oriented x3 and comfortable HEENT Vision grossly intact. Patent nares. Trachea midline. Respiratory Chest normal on inspection and clear to auscultation bilaterally. Cardiovascular S1 and S2 audible, RRR. No murmurs or carotid bruit. No gross JVD. Abdominal Soft and non tender to palpation in all quadrants. BS + Genitourinary No bladder tenderness, no flank pain. Normal to palpation. Musculoskeletal Extremities tone within normal limits. RLE: erythema, swelling - reduced from are marked on admission Neurological CN II - XII grossly intact. Extremity motor and sensation grossly intact. B/L pedal pulses intact. Skin RLE: Anterior mid-apple abscess 6-> 3cm, no purulent discharge Psychiatric Patient has a good affect, is cooperative. Objective Labs 06/15/24 04:41 06/15/24 04:41 Labs: Laboratory Results - last 24 hr 06/15/24 04:41 WBC 10.0 RBC 3.70 L Hgb 11.6 L Hct 33.3 L MCV 90 MCH 31.4 MCHC 34.8 RDW Std Deviation 40.3 Plt Count 290 Neut % (Auto) 86 H Lymph % (Auto) 6 L [place] % (Auto) 7 Eos % (Auto) 0 Baso % (Auto) 0 Neut # (Auto) 8.6 H Lymph # (Auto) 0.6 L [place] # (Auto) 0.7 Eos # (Auto) 0.0 Baso # (Auto) 0.0 Immature Gran # (Auto) 0.03 H Absolute Nucleated RBC 0.00 Immature Gran % 0 Nucleated RBC % 0 Sodium 134 L Potassium 3.6 D Chloride 101 Carbon Dioxide 23.8 Anion Gap 9 BUN 10 Creatinine 0.8 Estim Creat Clear Calc 105.6 eGFR > 60 BUN/Creatinine Ratio 13 Glucose 106 Calculated Osmolality 267 L Calcium 8.3 Corrected Calcium 8.6 Phosphorus 2.3 L Magnesium 1.9 Total Bilirubin 0.4 AST 28 ALT 31 Alkaline Phosphatase 54 Total Protein 6.4 Albumin 3.6 D Globulin 2.8 Albumin/Globulin Ratio 1.3 Triglycerides 92 Cholesterol 146 LDL Cholesterol, Calc 94 HDL Cholesterol 34 L Cholesterol/HDL Ratio 4.3 TSH 1.33 Quality Measures Quality Measures none Assessment & Plan Assessment Current Active Medications: Generic Name Dose Route Start Last Admin Trade Name Freq PRN Reason Stop Dose Admin Acetaminophen 650 mg 06/14/24 15:07 06/15/24 03:07 Acetaminophen 325 Mg Tablet PO 07/14/24 15:06 650 mg Q6H PRN Administration Pain 1-3 or Fever >100.3 Hydrocodone Bitart/Acetaminophen 1 tab 06/15/24 11:55 06/15/24 14:21 Hydrocodone/Apap 5/325 Tablet PO 06/19/24 15:06 1 tab Q4HR PRN Administration PAIN SCALE 4-10(Mod-Sev Heparin Sodium (Porcine) 5,000 unit 06/14/24 21:00 06/15/24 09:08 Heparin Sod Inj 5000 Unit/Ml Vial SC 06/28/24 20:59 5,000 unit Q12HR NEMO Administration Vancomycin/Sodium Chloride 200 mls @ 120 mls/hr 06/15/24 10:00 06/15/24 09:07 Vancomycin/Ns 1 Gm Ivpb IV 06/22/24 09:59 120 mls/hr BID@1000,2200 NEMO Administration Protocol Nicotine 14 mg 06/15/24 15:00 06/15/24 15:03 Nicotine Patch 14 Mg/24 Hr Patch.Td24 TOP 07/15/24 14:59 14 mg QDAY NEMO Administration Ondansetron HCl 4 mg 06/14/24 15:07 Ondansetron Inj 2 Mg/Ml Inj 2 Ml IV 07/14/24 15:06 Q6H PRN NAUSEA OR VOMITING Protocol Pharmacy Consult 1 each 06/15/24 09:00 Vancomycin Pharmacy To Dose 1 Each Each IV 07/15/24 08:59 QDAY PRN consult Plan Summary: The patient is a 53-year-old male with no significant past medical history presents to the ED on 06/14/2024 with complaints of right lower extremity pain, swelling and erythema. Sepsis secondary to right lower extremity cellulitis- resolved Right lower extremity cellulitis - improving Per the patient, about 6 days ago he had what he thinks might have been an insect/spider bite which was pruritic in nature and after a lot of scratching, had elevated blister subsequently, he noticed the area became more painful and started having some swelling and redness over the next 3 days. Three days prior, the patient presented to the ED where he was discharged on oral clindamycin but swelling and pain worsened and the initial point of the blister had gotten progressively larger with suspicion of some purulent discharge. In the ED, patient was febrile and slightly tachycardic, labs significant for leukocytosis, elevated ESR and CRP. He received IV Zosyn and vancomycin. Hb A1c : 5.4% 06/15: WBC downtrended to wnl 15 -> 14 -> 10 Patient has remained afebrile. Pain has resolved, he has not needed any pain medications. General surgery will not do any intervention at this time. Plan: - Received Vanco + Zosyn x1 in the ED - Stop IVF and patient is tolerating diet. - On IV Vancomycin (06/14 - - Pain control with [place] only - Follow up blood/wound cultures - Surgery consulted, appreciate recommendations. No urgent need for intervention, continue IV abs. - Jorge Luis continue to monitor extremity for extension past marked borders Hypoosmolar hyponatremia - improving Hypophosphatemia Na: 132 -> 134 Osmolality: 262 -> 267 Phos: 2.3 Patient did report decreased oral intake last couple days and poor appetite. Plan: - Encourage oral intake and monitor - NeutraPhos x1 packet given - This is likely a result of dehydration. Will continue to monitor closely. Health maintenance: Dispo: MedSurg. Anticipate DC in 24-48 hours Diet: Regular diet DVT: SC Heparin q12H PT: Not ordered Code: Full code Plan of care discussed with attending Dr Phil Khoury M.D. PGY2 Disclaimer: This note was dictated by speech recognition. Minor errors in research and development engineer may be present due to voice recognition software. Attending Provider Attestation/Addendum I have discussed and was present for the essential components of the history, physical examination, diagnosis, and treatment plan with the resident. I agree with the patient's care as documented by the resident and amended herein by me. Raul Villarreal DO. Although this document has been carefully reviewed, there may still be some phonetic and other typographical errors. These errors are purely grammatical due to imperfections in the software program and should not be construed in any way to compromise the substance of the patient's medical care during this visit.
[2024-06-15 21:35] LABS: Vancomycin,Trough 4.4 mcg/mL (5.0-10.0)
[2024-06-16] VITALS: BP 130/75; PULSE 82; RESP 17; TEMP 36.4; O2SAT 97
[2024-06-16 04:00] VITALS: BP 119/72; PULSE 89; RESP 18; TEMP 36.8; O2SAT 95
[2024-06-16 05:46] LABS: Basophils % (Auto) 0 % (0-2.5); Eosinophils # (Auto) 0.1 Thou/mm3 (0.0-0.5); Eosinophils % (Auto) 1 % (0-10); Hematocrit 35.3 % (41.0-53.0); Hemoglobin 12.2 g/dL (13.5-16.0); Immature Granulocytes % (Auto) 0 % (0-0); Immature Granulocytes Auto 0.03 Thou/mm3 (0.00-0.00); Lymphocytes # (Auto) 1.2 Thou/mm3 (1.0-4.8); Lymphocytes % (Auto) 18 % (10-50); Mean Corpuscular HGB Conc 34.6 g/dl (31.0-37.0); Mean Corpuscular Hemoglobin 31.4 pg (25.0-35.0); Mean Corpuscular Volume 91 fL (80-100); Monocytes # (Auto) 0.6 Thou/mm3 (0.0-0.8); Monocytes % (Auto) 9 % (0-12); Neutrophils # (Auto) 4.9 Thou/mm3 (1.8-7.7); Neutrophils % (Auto) 72 % (37-80); Nucleated Red Blood Cell % 0 /100 WBC (0); Platelet Count 334 Thou/mm3 (140-440); Red Blood Count 3.88 Miln/mm3 (4.50-5.90); White Blood Count 6.8 Thou/mm3 (3.8-10.6)
[2024-06-16 06:05] LABS: Alanine Aminotransferase 36 U/L (10-49); Albumin, Serum 3.7 gm/dL (3.5-5.0); Albumin/Globulin Ratio 1.3 (1.2-2.2); Alkaline Phosphatase 52 U/L (46-116); Anion Gap 10 (7-16); Aspartate Amino Transferase 28 U/L (0-34); BUN/Creatinine Ratio 14 Ratio (12-20); Bilirubin,Total 0.2 mg/dL (0.3-1.2); Blood Urea Nitrogen 11 mg/dL (9-23); Calcium 8.5 mg/dL (8.3-10.6); Calcium (Corrected) 8.7 mg/dL (8.5-10.1); Carbon Dioxide 24.3 mMol/L (20.0-31.0); Chloride 101 mMol/L (98-107); Creatinine (Component) 0.8 mg/dL (0.6-1.3); Estimated Creatinine Clearance 105.6 mL/min (>60); Globulin 2.9 gm/dL (2.3-3.5); Glucose 132 mg/dL (74-106); Magnesium 1.9 mg/dL (1.6-2.6); Osmolality,Calculated 271 (275-295); Phosphorous 3.2 mg/dL (2.4-5.1); Potassium 3.8 mMol/L (3.4-5.1); Sodium 135 mMol/L (136-145); Total Protein 6.6 gm/dL (5.7-8.2); eGFR > 60 See Note
[2024-06-16 07:37] VITALS: BP 144/69; PULSE 84; RESP 17; TEMP 37; O2SAT 99
--- NOTE | 2024-06-16 08:00 | PD.RESDS ---
Planned Discharge Date 06/16/24 DS: Providers Provider Date of admission: 06/14/24 15:04 Primary care physician: Physician No Primary/Family Admitting Provider: Salomón Khoury MD Attending Provider on Admission: Anthony Villarreal DO Consults: 06/14/24 16:31 Consult to General Surgery Routine Comment: Consulting Provider: Tanner Alford Attending Provider on DC: Anthony Villarreal DO Discharging Provider: Salomón Khoury MD DS: Diagnosis Discharge Diagnosis (1) Cellulitis of right leg: Status: Acute (2) Abscess of right lower extremity: Status: Acute Problem List Completed Was Problem List Reviewed/Reconciled?: Yes Hospital Course Hospital Course Hospital course: Hospital Course: Mr Ac is a 53-year-old male with no significant past medical history presents to the ED on 06/14/2024 with complaints of right lower extremity pain, swelling and erythema. He was started on IV Vancomycin and Zosyn and then transitioned to Vancomycin only. Surgery consulted, appreciate recommendations. No urgent need for intervention. Over the course of his hospitalization, RT lower extremity pain improved significantly. Patient endorses improvement of swelling and erythema. Area marked yesterday for cellulitis shows reduction in erythema and edema. Patient tolerating diet, adequate urine output and mentation is at baseline. Abscess appears to be resolving as well, general surgery evaluated the patient and recommended to continue antibiotic course. He was transitioned to Doxycycline and Augmentin, advised to complete course as recommended and return to ED if symptoms worsen. PCP may refer to wound care or surgery for outpatient drainage of abscess if unresolved after antibiotics. Problems on this admission: - Sepsis - resolved secondary to - Right lower extremity cellulitis - improving - Electrolyte disturbances - corrected Procedures: General surgery consulted, anticipate resolution of abscess with antibiotics, no intervention performed. Discharge instructions: - Follow up with PCP within 1 week from discharge. Call [phone] for an appointment - Follow up at [facility] with Dr Edwards for continued care. - Continue Doxycycline twice a day for x10 days to complete antibiotic course - Continue Augmentin twice a day for x7 days to complete course - You may walk around as tolerated, keep area clean and dry - May take Celebrex 100mg up to twice a day for pain, as needed - Return to ED if symptoms worsen We are grateful to be able to participate in Mr Ac's care. We wish him the best. - Salomón Khoury MD Status at Discharge Cognitive/behavioral status at discharge: stable and returned to baseline Functional status at discharge: independent ambulation Overall status at discharge: patient is back to baseline Time Spent with Patient Time attestation: Total time spent providing and/or coordinating discharge services: more than 50% Time spent: Greater than 30 minutes Exam Vital Signs Temp Pulse Resp BP Pulse Ox O2 Del Method 98.6 F 84 17 144/69 H 99 Room Air 06/16/24 07:37 06/16/24 07:37 06/16/24 07:37 06/16/24 07:37 06/16/24 07:37 06/16/24 07:37 Narrative Exam Constitutional Alert, oriented x3 and comfortable HEENT Vision grossly intact. Patent nares. Trachea midline. Respiratory Chest normal on inspection and clear to auscultation bilaterally. Cardiovascular S1 and S2 audible, RRR. No murmurs or carotid bruit. No gross JVD. Abdominal Soft and non tender to palpation in all quadrants. BS + Genitourinary No bladder tenderness, no flank pain. Normal to palpation. Musculoskeletal Extremities tone within normal limits. RLE: erythema, swelling - marked reduction Neurological CN II - XII grossly intact. Extremity motor and sensation grossly intact. B/L pedal pulses intact. Skin RLE: Anterior mid-apple loculated abscess 6-> 2 cm , no discharge. Psychiatric Patient has a good affect, is cooperative. Discharge Plan Plan Patient Disposition: HOME (Self Care) Patient condition on transfer: Stable Care Plan Goals: - Follow up with PCP within 1 week from discharge. Call [phone] for an appointment - Follow up at [facility] with Dr Edwards for continued care. - Continue Doxycycline twice a day for x10 days to complete antibiotic course - Continue Augmentin twice a day for x7 days to complete course - You may walk around as tolerated, keep area clean and dry - May take Celebrex 100mg up to twice a day for pain, as needed - Return to ED if symptoms worsen Prescriptions/Referrals Prescriptions/Med Rec: New celecoxib [Celebrex] 100 mg capsule 100 mg PO BID PRN (Reason: pain) Qty: 10 0RF doxycycline hyclate 100 mg capsule 100 mg PO BID 10 Days Qty: 20 0RF amoxicillin 875 mg tablet 875 mg PO BID Qty: 20 0RF Discontinued clindamycin HCl [Cleocin HCl] 150 mg capsule 450 mg PO TID 7 Days Qty: 63 0RF Referrals: Kylah Edwards MD [Physician] - No Primary/Family,Physician [Primary Care Provider] - Salomón Khoury MD [Resident] - Patient/Caregiver Discharge Instructions Discharge Activity: activity as tolerated and resume usual activities Education Materials: Discharge Instructions for Cellulitis Print Language: Icelandic Stand Alone Forms: [facility]ani Award Info., Patient Portal Info Letter Discharge Order Discharge Orders: Discharge (Routine); Ordered 06/16/24 Ordered By: Salomón Khoury Quality Discharge Quality Measures VTE prophylaxis Attestestation Attestation I have discussed and was present for the essential components of the discharge history, physical examination, diagnosis, and discharge treatment plan with the resident. I agree with the patient's discharge care as documented by the resident and amended herein by me. Raul Villarreal DO. The patient understood all discharge instructions, all questions were answered satisfactorily. The patient was instructed to return to the Emergency Department is symptoms worsened or persisted. Patient was stable, afebrile, tolerating p.o. intake and ambulatory at time of discharge. Patient will be discharged on a 10-day course of amoxicillin 875 mg twice daily and doxycycline 100 mg twice daily. All questions answered satisfactorily. Although this document has been carefully reviewed, there may still be some phonetic and other typographical errors. These errors are purely grammatical due to imperfections in the software program and should not be construed in any way to compromise the substance of the patient's medical care during this visit.
[2024-06-16] MEDS: DOXYCYCLINE 100 MG TABLET PO (08:52)
[2024-06-16] MEDS: HEPARIN SOD INJ 5000 UNIT/ML VIAL SC (08:52)
[2024-06-16] MEDS: NICOTINE PATCH 14 MG/24 HR PATCH.TD24 TOP (08:53)
[2024-06-16] MEDS: AMOXICILLIN/POT CLAV 500 MG TABLET PO (10:11)
[2024-06-16] MEDS: HYDROcodone/APAP 5/325 TABLET 1 TAB PO (10:14)
[2024-06-16 11:13] VITALS: PULSE 98; RESP 18; RESP 94
[2024-06-16 12:00] VITALS: BP 127/70; PULSE 86; RESP 16; TEMP 36.2; O2SAT 95
[2024-06-16] MEDS: LIDOCAINE HCL 1% 20 ML VIAL INFL (12:42)
--- NOTE | 2024-06-16 12:44 | PD.SUROPNT ---
Date of Procedure 06/16/24 Pre Op Diagnosis Abscess right leg following a spider bite Post Op Diagnosis Same Procedure Incision and drainage of the abscess right leg under local anesthesia Findings Patient was found to have 5 cm fluctuant mass with discoloration of the skin over the anterior portion of the right leg below the knee. This was located at the midportion of the tibia. Procedure Description Of the biliary procedure was explained to him the procedure was performed at the bedside. I washed the area with Betadine solution and draped in a sterile manner. Then I injected 1% Xylocaine about 2 cc over the top of this fluctuant swelling. I used 11 blade knife and made an incision and thick blood and purulent material mixed together was delivered out. Cultures were taken and the wound was compressed to let all the pus out. Then I used a Q-tip and peroxide to clean the abscess cavity. The dressing was applied with fluff and Kerlix roll. Patient tolerated procedure well Anesthesia local Pathology / specimen None Estimated Blood Loss 20 Surgeon Tanner Alford MD
== END 2024-06-16 13:15 | disposition home or self-care (01) | DRG 816 ==
LOC: SERX 14:22 → SERHOLD 15:35 → S3NX 16:21
PROVIDERS: Nurse Practitioner Primary Care; Admitting Provider Student in an Organized Health Care Education/Training Program; Emergency Provider Emergency Medicine; Visit Provider Student in an Organized Health Care Education/Training Program
DX: T63.311A Toxic effect of venom of black widow spider, accidental (unintentional), initial encounter (principal); L03.115 Cellulitis of right lower limb; L02.415 Cutaneous abscess of right lower limb; M79.661 Pain in right lower leg; E83.39 Other disorders of phosphorus metabolism; E87.1 Hypo-osmolality and hyponatremia; E86.0 Dehydration; F17.210 Nicotine dependence, cigarettes, uncomplicated
CPT/HCPCS: 36415; 73562; 73590; 80053; 80061; 80202; 83036; 83605; 83735; 84100; 84145; 84443; 85025; 85610; 85652; 85730; 86140; 87040; 87070; 87075; 87077; 87081; 87186; 87205; 93971; 96365; 96366; 96368; 99285; J1644; J2543; J3370; J3475; J3490; J7030; J7050; A9270

== ENCOUNTER 2024-09-25 09:04 | Inpatient (IN) | payer MEDICAID, SELFPAY ==
[2024-09-25] VITALS (57 sets, daily range): BP systolic 74–145; BP diastolic 4–101; PULSE 83–117; RESP 13–30; TEMP 36.5–36.7; O2SAT 82–100; BMI 28.1
--- NOTE | 2024-09-25 09:06 | EKG_ITS ---
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
--- NOTE | 2024-09-25 09:07 | XR_ITS ---
Examination: AP chest single view Technique one AP portable supine chest single view Date and time: September 25, 2024 0927 hours INDICATIONS: Chest pain today. FINDINGS: Diffuse bilateral lung opacity. Normal heart size Mild osteopenia IMPRESSION: Diffuse bilateral lung opacity most consistent with pneumonia
--- NOTE | 2024-09-25 09:21 | PD.EDCHEST ---
ED Chest Pain RME/HPI General Chief Complaint: Chest Pain Stated Complaint: CHEST PAIN, DIAPHORETIC Time Seen by Provider: 09/25/24 09:06 Arrival date/time: 09/25/24 09:04 Limitations: no limitations RME / HPI RME / HPI narrative: 53 year old male with no known medical history presents to the ED for evaluation of chest pain that began at 08:00 AM today while unloading wood from a truck. He describes the pain as severe, aching in nature, and localized to the left side of his chest without radiation. The pain is accompanied by nausea and sweating. The patient reports awakening this morning feeling at his usual state of health. He denies any prior episodes of similar pain and has no known history of cardiac disease. Related Data Home Medications ?Medication ?Instructions ?Recorded ?Confirmed No Known Home Medications 09/25/24 09/25/24 Allergies Allergy/AdvReac Type Severity Reaction Status Date / Time No Known Allergies Allergy Verified 04/30/24 10:06 Review of Systems Review of Systems Systems Reviewed: All systems reviewed, normal except as documented Past Medical History Past Medical History CARDIAC: Negative Congestive Heart Failure RESPIRATORY: Negative Chronic Obstructive Pulmonary Disease (COPD) GENITOURINARY: Negative Renal Disease ENDOCRINE: Negative Diabetes Mellitus Type 1 or Diabetes Mellitus Type 2 OTHER HISTORY: Negative Blood Transfusions, Anesthesia Reactions, MRSA or Cancer Social History SMOKING STATUS: Never smoker ED Exam General Limitations: Present no limitations General appearance: Present alert and other (diaphoretic, appeared lethargic, was able to open eyes and provide history, pale ) Head Head exam: Present atraumatic Eye Eye exam: Present normal appearance, PERRL and EOMI ENT ENT exam: Present normal exam, normal oropharynx and mucous membranes moist Neck Neck exam: Present normal inspection, full ROM and trachea midline Chest Chest inspection: Present normal inspection and symmetric chest wall rise Respiratory Respiratory exam: Present normal lung sounds bilaterally Cardiovascular Cardiovascular exam: Present regular rate, normal rhythm and other (distant heart sounds) Abdominal Exam Abdominal exam: Present soft and normal bowel sounds Extremities Exam Extremities exam: Present normal inspection and full ROM Back Exam Back exam: Present normal inspection and full ROM Neurological Exam Neurological exam: Present alert, oriented X3 and CN II-XII intact Psychiatric Psychiatric exam: Present normal affect and normal mood Skin Skin exam: Present warm, intact, normal color and diaphoresis Course Quality Measures none Orders Category Date Time Status Multimedia Author STAT Care 09/25/24 09:07 Active Continuous Pulse Oximetry ONCE Care 09/25/24 09:07 Active EKG (ED ONLY) *Do not use* NOW Care 09/25/24 09:06 Completed EKG (ED ONLY) *Do not use* NOW Care 09/25/24 09:07 Completed EKG (ED ONLY) *Do not use* NOW Care 09/25/24 09:16 Completed Insert IV STAT Care 09/25/24 09:07 Active Notify provider NOW Care 09/25/24 09:22 Active Consult to Cardiology Stat Cons 09/25/24 09:10 Ordered CCL heart cath LT ventricle Stat Exams 09/25/24 Ordered EKG (ED Only) Stat Exams 09/25/24 09:06 Draft EKG (ED Only) Stat Exams 09/25/24 09:07 Ordered EKG (ED Only) Stat Exams 09/25/24 09:16 Ordered XR chest 1V portable Stat Exams 09/25/24 09:07 Completed CBC Stat Lab 09/25/24 09:20 Completed Comprehensive Metabolic Panel Stat Lab 09/25/24 09:20 Completed Magnesium Stat Lab 09/25/24 09:20 Completed Partial Thromboplastin Time Stat Lab 09/25/24 09:20 Completed Prothrombin Time with INR Stat Lab 09/25/24 09:20 Completed Troponin I Stat Lab 09/25/24 09:20 Completed Adenosine 6mg Inj [Adenocard Inj] Med 09/25/24 09:49 Discontinued 30 mg .ROUTE .STK-MED ONE Amiodarone Inj [Cordarone Inj] Med 09/25/24 09:50 Discontinued 900 mg IV .STK-MED ONE Aspirin Chew Med 09/25/24 09:06 Discontinued 324 mg PO X1 ONE Atropine Inj Vial Med 09/25/24 09:48 Discontinued 1 mg .ROUTE .STK-MED ONE Clopidogrel [Plavix] Med 09/25/24 09:13 Discontinued 300 mg PO X1 ONE EPINEPHrine Inj Abboject Med 09/25/24 09:50 Discontinued 1 mg .ROUTE .STK-MED ONE Eptifibatide Inj [Integrilin Inj] Med 09/25/24 10:21 Discontinued 20 mg .ROUTE .STK-MED ONE Eptifibatide Inj [Integrilin Inj] Med 09/25/24 10:28 Discontinued 20 mg .ROUTE .STK-MED ONE Eptifibatide Ivpb [Integrilin Ivpb] Med 09/25/24 10:48 Discontinued 75 mg in 100 ml IV .STK-MED HYDROmorphone INJ [Dilaudid Inj] Med 09/25/24 09:08 Discontinued 1 mg IVP X1 ONE Heparin Inj Med 09/25/24 09:13 Discontinued 5,000 unit IVP X1 ONE Heparin* 1000 UNITS/ML- 10 ML [Heparin 1000 UNITS/ML- Med 09/25/24 10:34 Discontinued 10 ML] 10,000 unit .ROUTE .STK-MED ONE Heparin* 1000 UNITS/ML- 10 ML [Heparin 1000 UNITS/ML- Med 09/25/24 09:50 Discontinued 10 ML] 20,000 unit .ROUTE .STK-MED ONE Heparin/D5w 25K 250 ML Ivpb [Heparin in D5w Ivpb] Med 09/25/24 09:30 Discontinued 25,000 unit in 250 ml IV 12 units/kg/hr Lidocaine 1% Pf 30 ml [Xylocaine 1% Pf 30 ml] Med 09/25/24 09:50 Discontinued 30 ml .ROUTE .STK-MED ONE Metoprolol Tartrate Inj [Lopressor Inj] Med 09/25/24 09:49 Discontinued 15 mg .ROUTE .STK-MED ONE Midazolam Inj [Versed Inj] Med 09/25/24 09:48 Discontinued 2 mg .ROUTE .STK-MED ONE Morphine Inj Med 09/25/24 09:48 Discontinued 20 mg .ROUTE .STK-MED ONE NALOXONE INJ (Vial) [Narcan Inj (Vial)] Med 09/25/24 09:49 Discontinued 0.4 mg .ROUTE .STK-MED ONE Nitroglycerin [Nitrostat 1/150] Med 09/25/24 09:06 Hold 0.4 mg SL Q5M PRN Nitroglycerin [Nitrostat 1/150] Med 09/25/24 09:07 Discontinued 0.4 mg SL Q5MIN PRN Nitroglycerin/D5w 50 MG IVPB [Nitroglycerin in D5w Ivpb Med 09/25/24 09:50 Discontinued ] 50 mg in 250 ml .ROUTE .STK-MED Nitroglycerin/D5w 50 MG IVPB [Nitroglycerin in D5w Ivpb Med 09/25/24 09:06 Active ] 50 mg in 250 ml IV 5 mcg/min Norepinephrine/D5W 8mg/250ml [Levophed in D5W 8mg/250ml Med 09/25/24 09:27 Discontinued ] 8 mg in 250 ml IV 0.05 mcg/kg/min Ondansetron Inj [Zofran Inj] Med 09/25/24 09:06 Active 4 mg IVP Q1HR PRN PHENYLEPHRINE INJ in NS [Brooks-synephrine Inj/Ns] Med 09/25/24 09:50 Discontinued 1,000 mcg .ROUTE .STK-MED ONE Sodium Chloride 0.9% 250 ml [Ns] 250 ml Med 09/25/24 09:06 Discontinued IV 999 mls/hr Ticagrelor [Brilinta] Med 09/25/24 10:52 Discontinued 90 mg .ROUTE .STK-MED ONE Ticagrelor [Brilinta] Med 09/25/24 10:52 Discontinued 90 mg .ROUTE .STK-MED ONE Verapamil Inj [Calan Inj] Med 09/25/24 09:49 Discontinued 5 mg .ROUTE .STK-MED ONE fentaNYL INJ [Sublimaze Inj] Med 09/25/24 09:48 Discontinued 100 mcg .ROUTE .STK-MED ONE flumazeniL [Romazicon Inj] Med 09/25/24 09:49 Discontinued 1 mg .ROUTE .STK-MED ONE Oxygen Delivery NOW RT 09/25/24 09:07 Active Vital Signs Vital signs: Vital Signs Pulse Rate 87 09/25/24 09:25 Blood Pressure 88/57 L 09/25/24 09:25 Chest Pain MDM Narrative MDM Narrative:: Zehra Vargas am scribing for and in the presence of Dr. Pino. 0916: Heart alert called overhead Patient data External records reviewed:: [facility] previous records (I reviewed admission from 06/14/2024 through 06/16/2024 for cellulitis ) Clinical information provided by:: patient Social determinants that could affect healthcare access:: none Patient has the following chronic illnesses:: None reported How is presenting disease/condition affected by chronic disease/condition?: no chronic disease Evaluation data The following diagnostics were reviewed and interpreted by me:: lab results, radiology exam(s) and EKG tracing(s) (EKG # 1 @ 09:06 AM sinus rhythm, rate 91, right bundle branch block, left ventricular hypertrophy, no STEMI. EKG #2 @ 09:13 AM sinus rhythm, rate 91, ST elevation in aVR, lead III, and V3, ST depression in lead I II and reciprocal changes in aVL and aVF, ST depression V5 and V6 ) Lab and/or radiology exams considered but not ordered:: None Interpretation Summary: Ordering Physician: Leandro Pino MD Date of Service: 09/25/24 Procedure(s): XR chest 1V portable Accession Number(s): [id number] cc: Leandro Pino MD; Prudencio Rios MD; NO PRIMARY/FAMILY,PHYSICIAN~ Examination: AP chest single view Technique one AP portable supine chest single view Date and time: September 25, 2024 0927 hours INDICATIONS: Chest pain today. FINDINGS: Diffuse bilateral lung opacity. Normal heart size Mild osteopenia IMPRESSION: Diffuse bilateral lung opacity most consistent with pneumonia Dictated By: Prudencio Rios MD Signed By: <Electronically signed by Prudencio Rios MD in OV> 09/25/24 0938 Medications / Prescriptions Medications or Prescriptions considered but not ordered:: None Medication administrations:: Medication Administration History Acetaminophen (Acetaminophen 500 Mg Tablet) 1,000 mg PO Q6HR PRN PRN Reason: Fever >99.9 Stop: 10/25/24 15:45 Aspirin (Aspirin Ec 81 Mg Tabec) 81 mg PO QDAY NEMO Stop: 10/26/24 08:59 Nitroglycerin/Dextrose (Nitroglycerin In D5w Ivpb) 50 mg in 250 mls @ 1.5 mls/hr IV .Q24H ONE; Protocol Stop: 09/26/24 09:05 Last Titration: 09/25/24 11:10 Dose: 0 mcg/min, 0 mls/hr Documented By: Admin: 09/25/24 09:25 Dose: 5 mcg/min, 1.5 mls/hr Documented By: RD Norepinephrine/Dextrose (Levophed In D5w 8mg/250ml) 8 mg in 250 mls @ 7.416 mls/hr IV .Q24H PRN; Protocol PRN Reason: PER PROTOCOL Stop: 10/25/24 11:05 Last Titration: 09/25/24 14:30 Dose: 0.01 mcg/kg/min, 1.483 mls/hr Documented By: Titration: 09/25/24 13:30 Dose: 0.03 mcg/kg/min, 4.45 mls/hr Documented By: Titration: 09/25/24 12:15 Dose: 0.05 mcg/kg/min, 7.416 mls/hr Documented By: Titration: 09/25/24 12:03 Dose: 0.07 mcg/kg/min, 10.383 mls/hr Documented By: Admin: 09/25/24 11:15 Dose: 0.09 mcg/kg/min, 13.349 mls/hr Documented By: EG Eptifibatide (Integrilin Ivpb) 75 mg in 100 mls @ 12.657 mls/hr IV X1 ONE Stop: 09/25/24 19:09 Last Admin: 09/25/24 11:15 Dose: 2 mcg/kg/min, 12.657 mls/hr Documented By: EG Magnesium Sulfate (Magnesium Sulfate Ivpb) 2 gm in 50 mls @ 25 mls/hr IV X1 ONE Stop: 09/25/24 17:27 Last Admin: 09/25/24 15:54 Dose: 25 mls/hr Documented By: AT Morphine Sulfate (Morphine Sulf Inj 10 Mg/Ml Vial) 2 mg IVP Q2H PRN PRN Reason: PAIN Stop: 09/30/24 11:01 Nitroglycerin (Nitroglycerin 0.4 Mg Subl Btl #25) 0.4 mg SL Q5M PRN PRN Reason: CHEST PAIN Ondansetron HCl (Ondansetron Inj 2 Mg/Ml Inj 2 Ml) 4 mg IVP Q1HR PRN PRN Reason: PERSISTENT NAUSEA OR VOMITING Stop: 09/26/24 09:05 Last Admin: 09/25/24 09:24 Dose: 4 mg Documented By: NATA Ticagrelor (Ticagrelor 90 Mg Tablet) 90 mg PO BID NEMO Stop: 10/25/24 20:59 Vitamin B Complex/Vit C/Folic Acid (Vit B12/Vit C/Fa (Nephrovite) Tablet) 1 tab PO QDAY NEMO Stop: 10/25/24 15:59 Discontinued Medications Adenosine (Adenosine Inj 3 Mg/Ml Vial) Confirm Administered Dose 30 mg .ROUTE .STK-MED ONE Stop: 09/25/24 09:50 Last Admin: 09/25/24 11:41 Dose: Not Given Documented By: EG Non-Admin Reason: not needed Amiodarone HCl (Amiodarone Inj 50 Mg/Ml Vial 9 Ml) Confirm Administered Dose 900 mg IV .STK-MED ONE Stop: 09/25/24 09:51 Last Admin: 09/25/24 11:42 Dose: Not Given Documented By: EG Non-Admin Reason: not needed Aspirin (Aspirin 81 Mg Chew) 324 mg PO X1 ONE Stop: 09/25/24 09:07 Last Admin: 09/25/24 09:45 Dose: 324 mg Documented By: RD Atropine Sulfate (Atropine Sulf Inj 1 Mg/Ml Vial) Confirm Administered Dose 1 mg .ROUTE .STK-MED ONE Stop: 09/25/24 09:49 Last Admin: 09/25/24 11:40 Dose: Not Given Documented By: EG Non-Admin Reason: not needed Clopidogrel Bisulfate (Clopidogrel Bisulfate 75 Mg Tablet) 300 mg PO X1 ONE Stop: 09/25/24 09:14 Last Admin: 09/25/24 09:46 Dose: 300 mg Documented By: RD Epinephrine HCl (Epinephrine Inj 0.1 Mg/Ml Syringe 10ml) Confirm Administered Dose 1 mg .ROUTE .STK-MED ONE Stop: 09/25/24 09:51 Last Admin: 09/25/24 11:42 Dose: Not Given Documented By: EG Non-Admin Reason: not needed Eptifibatide (Eptifibatide Inj 2 Mg/Ml Vial 10 Ml) Confirm Administered Dose 20 mg .ROUTE .STK-MED ONE Stop: 09/25/24 10:22 Last Admin: 09/25/24 11:44 Dose: Not Given Documented By: EG Non-Admin Reason: Duplicate Medication on eMAR Eptifibatide (Eptifibatide Inj 2 Mg/Ml Vial 10 Ml) Confirm Administered Dose 20 mg .ROUTE .STK-MED ONE Stop: 09/25/24 10:29 Last Admin: 09/25/24 11:44 Dose: Not Given Documented By: EG Non-Admin Reason: Duplicate Medication on eMAR Fentanyl Citrate (Fentanyl Cit Inj 50 Mcg/Ml Amp 2ml) Confirm Administered Dose 100 mcg .ROUTE .STK-MED ONE Stop: 09/25/24 09:49 Last Admin: 09/25/24 11:40 Dose: Not Given Documented By: EG Non-Admin Reason: Duplicate Medication on eMAR Flumazenil (Flumazenil Inj 0.1 Mg/Ml Vial 10 Ml) Confirm Administered Dose 1 mg .ROUTE .STK-MED ONE Stop: 09/25/24 09:50 Last Admin: 09/25/24 11:41 Dose: Not Given Documented By: EG Non-Admin Reason: not needed Furosemide (Furosemide Inj 10 Mg/Ml 4ml Vial) 40 mg IVP X1 ONE Stop: 09/25/24 12:24 Last Admin: 09/25/24 12:35 Dose: Not Given Documented By: EG Non-Admin Reason: Discontinued Furosemide (Furosemide Inj 10 Mg/Ml 4ml Vial) Confirm Administered Dose 40 mg .ROUTE .STK-MED ONE Stop: 09/25/24 12:21 Last Admin: 09/25/24 12:35 Dose: Not Given Documented By: EG Non-Admin Reason: Duplicate Medication on eMAR Furosemide (Furosemide Inj 10 Mg/Ml 4ml Vial) Confirm Administered Dose 40 mg .ROUTE .STK-MED ONE Stop: 09/25/24 12:25 Last Admin: 09/25/24 12:35 Dose: Not Given Documented By: EG Non-Admin Reason: Duplicate Medication on eMAR Furosemide (Furosemide Inj 10 Mg/Ml 4ml Vial) 80 mg IVP X1 ONE Stop: 09/25/24 12:31 Last Admin: 09/25/24 12:30 Dose: 80 mg Documented By: EG Heparin Sodium (Porcine) (Heparin Sod Inj 5000 Unit/Ml Vial) 5,000 unit IVP X1 ONE Stop: 09/25/24 09:14 Last Admin: 09/25/24 09:24 Dose: 5,000 unit Documented By: RD Co-signed By: SUE Heparin Sodium (Porcine) (Heparin Sod Inj 1000 Unit/Ml Vial 10 Ml) Confirm Administered Dose 20,000 unit .ROUTE .STK-MED ONE Stop: 09/25/24 09:51 Last Admin: 09/25/24 11:42 Dose: Not Given Documented By: EG Non-Admin Reason: Duplicate Medication on eMAR Heparin Sodium (Porcine) (Heparin Sod Inj 1000 Unit/Ml Vial 10 Ml) Confirm Administered Dose 10,000 unit .ROUTE .STK-MED ONE Stop: 09/25/24 10:35 Last Admin: 09/25/24 11:45 Dose: Not Given Documented By: EG Non-Admin Reason: Duplicate Medication on eMAR Hydromorphone HCl (Hydromorphone Inj 2 Mg/Ml Vial) 1 mg IVP X1 ONE Stop: 09/25/24 09:09 Last Admin: 09/25/24 09:25 Dose: 1 mg Documented By: NATA Sodium Chloride (Ns) 250 mls @ 999 mls/hr IV .Q16M ONE Stop: 09/25/24 09:21 Last Infusion: 09/25/24 09:47 Dose: Infused Documented By: Admin: 09/25/24 09:23 Dose: 999 mls/hr Documented By: NATA Heparin Sodium/Dextrose (Heparin In D5w Ivpb) 25,000 unit in 250 mls @ 9.493 mls/hr IV .Q24H NEMO; Protocol Stop: 10/09/24 09:29 Last Admin: 09/25/24 13:39 Dose: Not Given Documented By: RADHA Non-Admin Reason: Cancelled by Provider Norepinephrine/Dextrose (Levophed In D5w 8mg/250ml) 8 mg in 250 mls @ 7.416 mls/hr IV .Q24H PRN; Protocol PRN Reason: PER PROTOCOL Stop: 10/25/24 09:26 Last Admin: 09/25/24 09:34 Dose: 0.05 mcg/kg/min, 7.416 mls/hr Documented By: NATA Nitroglycerin/Dextrose (Nitroglycerin In D5w Ivpb) Confirm Administered Dose 50 mg in 250 mls @ ud .ROUTE .STK-MED ONE Stop: 09/25/24 09:51 Last Admin: 09/25/24 11:43 Dose: Not Given Documented By: EG Non-Admin Reason: Duplicate Medication on eMAR Eptifibatide (Integrilin Ivpb) Confirm Administered Dose 75 mg in 100 mls @ ud IV .STK-MED ONE Stop: 09/25/24 10:49 Last Admin: 09/25/24 11:45 Dose: Not Given Documented By: EG Non-Admin Reason: Duplicate Medication on eMAR Lidocaine HCl (Lidocaine Inj Pf 1% 30 Ml Vial) Confirm Administered Dose 30 ml .ROUTE .STK-MED ONE Stop: 09/25/24 09:51 Last Admin: 09/25/24 11:42 Dose: Not Given Documented By: EG Non-Admin Reason: Duplicate Medication on eMAR Metoprolol Tartrate (Metoprolol Tartrate Inj 1 Mg/Ml Amp 5 Ml) Confirm Administered Dose 15 mg .ROUTE .STK-MED ONE Stop: 09/25/24 09:50 Last Admin: 09/25/24 11:41 Dose: Not Given Documented By: EG Non-Admin Reason: not needed Midazolam HCl (Midazolam Inj 1 Mg/Ml Vial 2 Ml) Confirm Administered Dose 2 mg .ROUTE .STK-MED ONE Stop: 09/25/24 09:49 Last Admin: 09/25/24 11:41 Dose: Not Given Documented By: EG Non-Admin Reason: Duplicate Medication on eMAR Morphine Sulfate (Morphine Sulf Inj 10 Mg/Ml Vial) Confirm Administered Dose 20 mg .ROUTE .STK-MED ONE Stop: 09/25/24 09:49 Last Admin: 09/25/24 11:41 Dose: Not Given Documented By: EG Non-Admin Reason: Duplicate Medication on eMAR Naloxone HCl (Naloxone Inj 0.4 Mg/Ml Vial) Confirm Administered Dose 0.4 mg .ROUTE .STK-MED ONE Stop: 09/25/24 09:50 Last Admin: 09/25/24 11:42 Dose: Not Given Documented By: EG Non-Admin Reason: not needed Nitroglycerin (Nitroglycerin 0.4 Mg Subl Btl #25) 0.4 mg SL Q5MIN PRN PRN Reason: CHEST PAIN Phenylephrine HCl (Phenylephrine Inj In Ns 100 Mcg/Ml 10 Ml Syringe) Confirm Administered Dose 1,000 mcg .ROUTE .STK-MED ONE Stop: 09/25/24 09:51 Last Admin: 09/25/24 11:44 Dose: Not Given Documented By: EG Non-Admin Reason: not needed Potassium Chloride (Potassium Chloride 20 Meq Tabcr) 40 meq PO X1 ONE Stop: 09/25/24 15:29 Last Admin: 09/25/24 15:54 Dose: 40 meq Documented By: AT Ticagrelor (Ticagrelor 90 Mg Tablet) Confirm Administered Dose 90 mg .ROUTE .STK-MED ONE Stop: 09/25/24 10:53 Last Admin: 09/25/24 11:45 Dose: Not Given Documented By: EG Non-Admin Reason: Duplicate Medication on eMAR Ticagrelor (Ticagrelor 90 Mg Tablet) Confirm Administered Dose 90 mg .ROUTE .STK-MED ONE Stop: 09/25/24 10:53 Last Admin: 06/09/25 11:45 Dose: Not Given Documented By: EG Non-Admin Reason: Duplicate Medication on eMAR Verapamil HCl (Verapamil Inj 2.5 Mg/Ml Vial 2 Ml) Confirm Administered Dose 5 mg .ROUTE .K-MED ONE Stop: 09/25/24 09:50 Last Admin: 09/25/24 11:42 Dose: Not Given Documented By: EG Non-Admin Reason: Duplicate Medication on eMAR See above Consultations Consultation(s) initiated? (list below): Yes Consultation #1 (Physician, Specialty, Details): Cemetery Keeper Dr. Lerma has reviewed the EKG's. Advised starting the patient on heparin and giving Aspirin. Time: :25 Consultation #2 (Physician, Specialty, Details): I spoke with resident working with Dr Li. Discussed patients PMHx, HPI, ED course, exam findings, labs, and radiology results. The hospitalist agree to accept the patient for admission. Diagnosis Chest Pain Differential Diagnosis: stable angina, atypical chest pain, st elevation myocardial infarction and chest pain Most likely diagnosis given after review of the tests above:: STEMI Chest pain Admission Indicated Admission indicated?: indicated Admission Request Was there a request for admission?: Yes Admission Attestation Admission request attestation: Discussed case with [] from Hospitalist service regarding admission. Discussed patients ED course, exam findings, labs, and radiology results. The Hospitalist [agrees,declines] to accept the patient for admission. Disposition Plan Disposition Plan: Admit Critical Care Time Critical Care Time Critical Care Time: Yes Total Critical Care Time (min.): 45 Attestation: The high probability of sudden, clinically significant deterioration in the patient's condition required the highest level of my preparedness to intervene urgently. The services I provided to this patient were to treat and/or prevent clinically significant deterioration. Services included the following: chart data review, reviewing nursing notes and/or old charts, documentation time, qa consultant collaboration regarding findings and treatment options, medication orders and management, direct patient care, vital sign assessments and ordering, interpreting and reviewing diagnostic studies and lab tests. Aggregate critical care time includes only time during which I was engaged in work directly related to the patient's care, as described above, whether at bedside or elsewhere in the Emergency Department. It did not include time spent performing other reported procedures or the services of residents, students, nurses or physician assistants. Discharge Plan Plan Patient Disposition: Admit Acute Care w/in Hospital Problem List Clinical Impression: ST elevation [place] (STEMI), Chest pain
[2024-09-25] MEDS: SODIUM CHLORIDE 0.9% 250 ML 250 ML 999 ML IV (09:23)
[2024-09-25] MEDS: HEPARIN SOD INJ 5000 UNIT/ML VIAL IVP (09:24)
[2024-09-25] MEDS: ONDANSETRON INJ 2 MG/ML INJ 2 ML 4 MG IVP ×2 (09:24→19:05)
[2024-09-25] MEDS: HYDROmorphone INJ 2 MG/ML VIAL 1 MG IVP (09:25)
[2024-09-25] MEDS: Nitroglycerin/D5w 50 MG IVPB 50 MG/250 ML BTL IV (09:25)
[2024-09-25 09:31] LABS: Basophils % (Auto) 0 % (0-2.5); Eosinophils # (Auto) 0.2 Thou/mm3 (0.0-0.5); Eosinophils % (Auto) 2 % (0-10); Hematocrit 34.9 % (41.0-53.0); Hemoglobin 12.5 g/dL (13.5-16.0); Immature Granulocytes % (Auto) 0 % (0-0); Immature Granulocytes Auto 0.02 Thou/mm3 (0.00-0.00); Lymphocytes # (Auto) 2.5 Thou/mm3 (1.0-4.8); Lymphocytes % (Auto) 28 % (10-50); Mean Corpuscular HGB Conc 35.8 g/dl (31.0-37.0); Mean Corpuscular Hemoglobin 32.1 pg (25.0-35.0); Mean Corpuscular Volume 90 fL (80-100); Monocytes # (Auto) 0.8 Thou/mm3 (0.0-0.8); Monocytes % (Auto) 9 % (0-12); Neutrophils # (Auto) 5.4 Thou/mm3 (1.8-7.7); Neutrophils % (Auto) 61 % (37-80); Nucleated Red Blood Cell % 0 /100 WBC (0); Platelet Count 289 Thou/mm3 (140-440); RDW Standard Deviation 42.5 fL (35.1-43.9)
[2024-09-25] MEDS: Norepinephrine/D5W 8mg/250ml 8 MG/250 ML BAG 7.416 MG IV (09:34)
[2024-09-25 09:43] LABS: Partial Thromboplastin Time 23.8 Seconds (22.0-36.0); Prothrombin Time 11.2 Seconds (9.0-12.2)
[2024-09-25] MEDS: ASPIRIN 81 MG CHEW 324 MG PO (09:45)
[2024-09-25] MEDS: CLOPIDOGREL BISULFATE 75 MG TABLET 300 MG PO (09:46)
[2024-09-25 09:49] LABS: Alanine Aminotransferase 25 U/L (10-49); Albumin, Serum 3.6 gm/dL (3.5-5.0); Albumin/Globulin Ratio 1.4 (1.2-2.2); Alkaline Phosphatase 56 U/L (46-116); Anion Gap 13 (7-16); BUN/Creatinine Ratio 15 Ratio (12-20); Bilirubin,Total 0.2 mg/dL (0.3-1.2); Blood Urea Nitrogen 15 mg/dL (9-23); Calcium 8.9 mg/dL (8.3-10.6); Calcium (Corrected) 9.2 mg/dL (8.5-10.1); Carbon Dioxide 21.2 mMol/L (20.0-31.0); Chloride 107 mMol/L (98-107); Estimated Creatinine Clearance 84.5 mL/min (>60); Globulin 2.5 gm/dL (2.3-3.5); Glucose 158 mg/dL (74-106); Magnesium 1.8 mg/dL (1.6-2.6); Osmolality,Calculated 285 (275-295); Potassium 3.2 mMol/L (3.4-5.1); Sodium 141 mMol/L (136-145); Total Protein 6.1 gm/dL (5.7-8.2); eGFR > 60 See Note
[2024-09-25 09:52] LABS: Troponin I 0.974 ng/mL (0.0-0.045)
--- NOTE | 2024-09-25 10:15 | PC.NURSE ---
Patient taken to mechanical laboratory technician at 0935
--- NOTE | 2024-09-25 11:02 | XR_ITS ---
Examination: AP chest single view Technique one AP portable upright chest single view Date and time: September 25, 2024 1543 hours INDICATIONS: Hypoxia of this week FINDINGS: Again noted diffuse bilateral pneumonia Minimal prominence left ventricle The osseous structures are intact IMPRESSION: Again noted is significant diffuse bilateral pneumonia
[2024-09-25] MEDS: EPTIFIBATIDE IVPB 75 MG/100 ML VIAL 12.657 MG IV ×2 (11:15→17:52)
[2024-09-25] MEDS: Norepinephrine/D5W 8mg/250ml 8 MG/250 ML BAG 13.349 MG IV (11:15)
--- NOTE | 2024-09-25 11:22 | ECHO_ITS ---
Transthoracic Echo Report Ht (in): 66 Wt (lb): 174 Exam Location: Echo Lab Status: Inpatient Inspector Watch Train: Sophia Hanley Indications: Procedure Performed: BP: 123 / 86 HR: 100 Technical Quality: Adequate MEASUREMENTS (Male / Female) Normal Values 2D ECHO LVOT Diameter 1.8 cm LA Volume Index 31.2 cm?/m? 16 - 28 cm?/m? DOPPLER AV Peak Velocity 72.9 cm/s AV Peak Gradient 2.1 mmHg LVOT Peak Velocity 53.8 cm/s LVOT Peak Gradient 1.2 mmHg AV Area Cont Eq pk 1.9 cm? MV Area PHT 5.6 cm? Mitral E Point Velocity 63.5 cm/s Mitral A Point Velocity 36.9 cm/s Mitral E to A Ratio 1.7 LV E' Lateral Velocity 8.6 cm/s Mitral E to LV E' Lateral Ratio 7.4 LV E' Septal Velocity 6.0 cm/s Mitral E to LV E' Septal Ratio 10.6 PV Peak Velocity 79.5 cm/s PV Peak Gradient 2.5 mmHg FINDINGS Left Ventricle Normal left ventricular size and wall thickness with evidence of extensive anteroapical lateral inferoapical akinesis with severe LV dysfunction ejection fraction approximately 30% Right Ventricle The right ventricle is normal in size and systolic function. The estimated right ventricular systolic pressure, 5 mmHg. Left Atrium The left atrium is normal by two-dimensional, color flow and Doppler imaging with no structural abnormalities, no thrombus formation present. Right Atrium The right atrium is normal by two-dimensional imaging, color flow and Doppler imaging with no structural abnormalities, no thrombus formation present. Atrial Septum The interatrial septum appears normal with no evidence of a shunt. Aorta The aorta is normal by two-dimensional, color flow and Doppler interrogation. Mitral Valve The mitral valve is normal by two-dimensional, color flow and Doppler interrogation. There is mild mitral reguritation. Aortic Valve The aortic valve is trileaflet and normal by two-dimensional, color flow and Doppler interrogation. There is no significant aortic valve regurgitation. Tricuspid Valve The tricuspid valve is normal by two-dimensional, color flow and Doppler interrogation. There is no significant tricuspid valve regurgitation. Pulmonic Valve The pulmonic valve is not well visualized. There is no significant pulmonic valve regurgitation. Vessels The pulmonary artery appears normal. The inferior vena cava pulmonary and hepatic veins appear normal. Pericardium The pericardium is normal by two-dimensional imaging. There is no significant pericardial effusion. CONCLUSIONS Indications: STEMI Evidence of acute anteroapical lateral myocardial infarction ejection fraction 30%. Right atrium is normal. Right ventricular size and function normal. Mitral valve thickening mild mitral regurgitation. Judy Lopez (Electronically Signed) Final Date: 25 September 2024 17:48
[2024-09-25] MEDS: FUROSEMIDE INJ 10 MG/ML 4ML VIAL 80 MG IVP (12:30)
--- NOTE | 2024-09-25 13:11 | ESHP_ITS ---
Documentation for date of: 09/25/24 HPI History of Present Illness History of present illness: Chief complaint: Typical chest pain HPI: Mr Ac is a 53-year-old male with no significant past medical history presents to the ED on 09/25 with acute onset chest pain. Patient described his pain as 9/10, that began around 08:00 AM while unloading wood from a truck and progressively got worse. In the ED, he describes the pain as severe, aching in nature, and localized to the left side of his chest without radiation. The pain is accompanied by nausea and sweating. The patient reports awakening this morning feeling at his usual state of health. He denies any prior episodes of similar pain and has no known history of cardiac disease. Labs showed Trops 0.924. In the ED, vitals showed acute drop in BP 70/50s and tachycardia 110/120s bpm, oxygen saturations dropped to 92%. EKG showed ST changes, depressions in leads I, aVL, v5 and V6. ST elevations seen on aVR. Patient was taken to cardiac animal laboratory technician for acute intervention. Post CCL patient was brought to ICU for further monitoring. 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 ETOH?Use:?Denies Drug?Note:?smokes Marijuana, 1-2x a week Social?History?Note:?Lives alone?at home Family history: Father - Sudden cardiac arrest leading to at age 55 Mother - breast cancer, . Denes any family hx of CVA. Review of Systems Review of Systems Narrative Review of Systems: GENERAL: Denies fevers/chills, diaphoresis. HEENT: Denies headache or visual/hearing changes. Denies nasal discharge. NEURO: Denies unusual weakness or difficulty speaking. CARDIO: Denies chest pain, palpitations. PULM: Denies SOB, cough, wheezing. GI: Denies abdominal pain, no N/V, no C/D. Reports having BMs URO: Denies burning/itching/pain/urinary changes. MSK/EXT/SKIN: Denies skeletal/muscle pain, changes in upper or lower extremities, itchiness, superficial skin chnages. PSYCH: Cooperative, pleasant mood & affect. The rest of the review of systems is otherwise negative. Exam Vital Signs Temp Pulse Resp BP Pulse Ox O2 Del Method O2 Flow Rate 97.7 F 105 H 20 90/66 94 L Nasal Cannula 4 09/25/24 11:15 09/25/24 13:00 09/25/24 13:00 09/25/24 13:00 09/25/24 13:00 09/25/24 13:00 09/25/24 13:00 Narrative Exam Constitutional Alert, oriented x3 and comfortable on 1L of oxygen via NC, sats 94-95% HEENT Vision grossly intact. Patent nares. Trachea midline. Respiratory Chest normal on inspection and clear to auscultation bilaterally. Cardiovascular S1 and S2 audible, RRR. No murmurs or carotid bruit. No gross JVD. Abdominal Soft and BS + ; non tender to palpation in all quadrants. Genitourinary No bladder tenderness, no flank pain. Normal to palpation. Musculoskeletal Extremities tone within normal limits. RT LE edema 2/2 black spider bite. Neurological CN II - XII grossly intact. Extremity motor and sensation grossly intact. Skin Warm, dry and intact. No apparent lesions. Psychiatric Patient has a good affect, is cooperative. Results: Labs 09/26/24 04:47 09/26/24 04:47 Labs: Short CBC 09/25/24 Range/Units 09:20 WBC 9.0 (3.8-10.6) Thou/mm3 Hgb 12.5 L (13.5-16.0) g/dL Hct 34.9 L (41.0-53.0) % Plt Count 289 (140-440) Thou/mm3 BMP 09/25/24 09:20 Sodium 141 Potassium 3.2 L Chloride 107 Carbon Dioxide 21.2 BUN 15 Creatinine 1.0 Glucose 158 H Calcium 8.9 Cardiac Enzymes 09/25/24 Range/Units 09:20 Troponin I 0.974 H* (0.0-0.045) ng/mL Liver Function 09/25/24 Range/Units 09:20 Total Bilirubin 0.2 L (0.3-1.2) mg/dL ALT 25 (10-49) U/L Alkaline Phosphatase 56 (46-116) U/L Albumin 3.6 (3.5-5.0) gm/dL Quality Measures Quality Measures none Medications Home Medications and Allergies Home Medications ?Medication ?Instructions ?Recorded ?Confirmed ?Type No Known Home Medications 09/25/24 06/0 01/11 History Allergies Allergy/AdvReac Type Severity Reaction Status Date / Time No Known Allergies Allergy Verified 04/30/24 10:06 Visit Medications Nitroglycerin/Dextrose (Nitroglycerin In D5w Ivpb) 50 mg in 250 mls @ 1.5 mls/hr IV .Q24H ONE; Protocol Stop: 09/26/24 09:05 Last Titration: 09/25/24 11:10 Dose: 0 mcg/min, 0 mls/hr Heparin Sodium/Dextrose (Heparin In D5w Ivpb) 25,000 unit in 250 mls @ 9.493 mls/hr IV .Q24H NEMO; Protocol Stop: 10/09/24 09:29 Norepinephrine/Dextrose (Levophed In D5w 8mg/250ml) 8 mg in 250 mls @ 7.416 mls/hr IV .Q24H PRN; Protocol PRN Reason: PER PROTOCOL Stop: 10/25/24 11:05 Last Titration: 09/25/24 12:15 Dose: 0.05 mcg/kg/min, 7.416 mls/hr Eptifibatide (Integrilin Ivpb) 75 mg in 100 mls @ 12.657 mls/hr IV X1 ONE Stop: 09/25/24 19:09 Last Admin: 09/25/24 11:15 Dose: 2 mcg/kg/min, 12.657 mls/hr Morphine Sulfate (Morphine Sulf Inj 10 Mg/Ml Vial) 2 mg IVP Q2H PRN PRN Reason: PAIN Stop: 09/30/24 11:01 Nitroglycerin (Nitroglycerin 0.4 Mg Subl Btl #25) 0.4 mg SL Q5M PRN PRN Reason: CHEST PAIN Ondansetron HCl (Ondansetron Inj 2 Mg/Ml Inj 2 Ml) 4 mg IVP Q1HR PRN PRN Reason: PERSISTENT NAUSEA OR VOMITING Stop: 09/26/24 09:05 Last Admin: 09/25/24 09:24 Dose: 4 mg Discontinued Medications Aspirin (Aspirin 81 Mg Chew) 324 mg PO X1 ONE Stop: 09/25/24 09:07 Last Admin: 09/25/24 09:45 Dose: 324 mg Clopidogrel Bisulfate (Clopidogrel Bisulfate 75 Mg Tablet) 300 mg PO X1 ONE Stop: 09/25/24 09:14 Last Admin: 09/25/24 09:46 Dose: 300 mg Furosemide (Furosemide Inj 10 Mg/Ml 4ml Vial) 40 mg IVP X1 ONE Stop: 09/25/24 12:24 Last Admin: 09/25/24 12:35 Dose: Not Given Furosemide (Furosemide Inj 10 Mg/Ml 4ml Vial) 80 mg IVP X1 ONE Stop: 09/25/24 12:31 Last Admin: 09/25/24 12:30 Dose: 80 mg Heparin Sodium (Porcine) (Heparin Sod Inj 5000 Unit/Ml Vial) 5,000 unit IVP X1 ONE Stop: 09/25/24 09:14 Last Admin: 09/25/24 09:24 Dose: 5,000 unit Hydromorphone HCl (Hydromorphone Inj 2 Mg/Ml Vial) 1 mg IVP X1 ONE Stop: 09/25/24 09:09 Last Admin: 09/25/24 09:25 Dose: 1 mg Sodium Chloride (Ns) 250 mls @ 999 mls/hr IV .Q16M ONE Stop: 09/25/24 09:21 Last Infusion: 09/25/24 09:47 Dose: Infused Norepinephrine/Dextrose (Levophed In D5w 8mg/250ml) 8 mg in 250 mls @ 7.416 mls/hr IV .Q24H PRN; Protocol PRN Reason: PER PROTOCOL Stop: 10/25/24 09:26 Last Admin: 09/25/24 09:34 Dose: 0.05 mcg/kg/min, 7.416 mls/hr Nitroglycerin (Nitroglycerin 0.4 Mg Subl Btl #25) 0.4 mg SL Q5MIN PRN PRN Reason: CHEST PAIN Assessment & Plan Plan Mr Ac is a 53-year-old male with no significant past medical history presents to the ED on 09/25 with acute onset chest pain. Patient described his pain as 9/10, that began around 08:00 AM while unloading wood from a truck and progressively got worse. In the ED, he describes the pain as severe, aching in nature, and localized to the left side of his chest without radiation. The pain is accompanied by nausea and sweating. The patient reports awakening this morning feeling at his usual state of health. He denies any prior episodes of similar pain and has no known history of cardiac disease. Labs showed Trops 0.924. In the ED, vitals showed acute drop in BP 70/50s and tachycardia 110/120s bpm, oxygen saturations dropped to 92%. EKG showed ST changes, depressions in leads I, aVL, v5 and V6. ST elevations seen on aVR. Patient was taken to cardiac animal laboratory technician for acute intervention. Post CCL patient was brought to ICU for further monitoring. NEURO No active problems CVS Shock, cardiogenic Dx: - In the ED, vitals showed acute drop in BP 70/50s and tachycardia 110/120s bpm - EKG showed ST changes, depressions in leads I, aVL, v5 and V6. ST elevations seen on aVR. - Patient was taken to cardiac animal laboratory technician for acute intervention. Rx: - Post CCL patient was brought to ICU for further monitoring. - Cardiology following, appreciate recommendations - Continue DAPT with ASA + Brillinta - On Eptifibatide gtt @ 2mcg/h x1 bag - K and Mag repleted - Will do bedside Echo to evaluate further PULM Acute respiratory failure, hypoxic Dx: In the ED, oxygen saturations dropped to 92%. Rx: Continue oxygen supplementation PRN Dry cough 2/2 chronic smoking Dx: 5 pack years of smoking. Endorses intermittent episodes of cough spells Rx: Will get breathing treatments if needed, no audible wheezing at this time Cough suppresant ordered GI/Hep No active problems. RENAL Acute hypokalemia Magnesium <2 Dx: labs showed K 3.2 and Mg 1.8 Rx: - Ordered KCL PO 40mEq x1 - IV Mg 2g x1 - Daily Renal panel, will replete as needed HEME/ONC Normocytic Anemia Dx: Hb 12.5 , MCV 90s Currently asymptomatic. Denies generalized weakness or pica Rx: - Iron panel ordered fro AM draw - Started daily B12/FA supplements - Will monitor closely to improve post PCI rehabilitation ENDO No active problems. ID No active problems. MSK/DERM No active problems. ICU Health maintenance: Dispo: Admit to ICU for post PCI care Diet: Cardiac diet DVT ppx: SCDs GI ppx: Famotidine IV lines: 2 pIV Central line: No Arterial line: No Krishna: No Code status: FULL CODE Plan of care discussed with documentation coordinator Dr De La Vega, Salomón Khoury MD PGY 2 This document was compiled using speech recognition software. Grammatical errors, random word insertions, pronoun errors, and incomplete sentences can be an occasional consequence of this system. Attending Provider Attestation/Addendum This is a 53-year-old male who presented to the ER for chest pain. States that he has had similar pain in the past and the first episode was approximately 4 months ago. He went to the ER and was told that he was fine. He returned home and states that since that time he has had intermittent chest pain especially with heavy physical exertion. States that the pain is frequently relieved with rest. 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 He was diaphoretic and dizzy. His friends brought him to the ER. On arrival to the ED he was noted to be hypotensive. His initial sets of troponin were positive and he had EKG changes. He was taken to the [employer] and found to have a LAD occlusion. He underwent emergent PCI with angioplasty and placement of a drug-eluting stent with successful reinstitution of flow. During this time he was hypotensive and required Levophed. He was also on a nitroglycerin drip. Postprocedure he was returned to the ICU. In the ICU he was examined and he stated that his pain had resolved. He was off of the nitro drip however remained on a Integrilin drip as well as a Levophed drip. On physical exam he is awake alert and oriented, normal body habitus and in no current acute distress. His sclera are anicteric pupils are equal and reactive EOMI oral mucosa is hydrated no obvious trauma to the head, neck supple no JVD no adenopathy. Chest lungs are clear to auscultation bilaterally, heart rate regular and rhythmic, no bruits or murmurs auscultated. Abdomen is firm bowel sounds present no pain no rebound no guarding no palpable organomegaly. Extremities pulses are palpable no clubbing or cyanosis, no mottling, no focal deficits, on his right lower extremity there is a hyperpigmented lesion measuring several centimeters from a old black spider bite that occurred 3 to 4 months ago. For his acute coronary syndrome and HI he underwent a PCI. He will be started on aspirin and Brilinta, his Integrilin bag will be completed. A formal echocardiogram was performed as well as a bedside echo he does have a decrease in EF with obvious wall motion abnormalities. Cardiogenic shock-secondary to his acute HI, patient is still on Levophed but with significant improvement from prior. He is seen and followed by cardiology, appears to be stable at this time Tobacco abuse-will require smoking cessation as well as nicotine patch Anemia-an iron panel will be sent appears to be near baseline over the last couple of months Case is discussed with the ICU team, patient and family at bedside Labs, imaging and records reviewed Approximately 55 critical care minutes required for evaluation, exam, review, intervention, discussion formulation of plan of care for this critically ill patient with cardiogenic shock at high risk for further and ongoing deterioration
--- NOTE | 2024-09-25 13:45 | PC.NURSE ---
2mls of air removed from TR Band. Neg hematoma, neg bleeding. 5mls of air left in TR Band
--- NOTE | 2024-09-25 14:00 | PC.NURSE ---
2mls of air removed from TR band, 3 mls of air left in Tr Band. No hematoma, no bleeding.
--- NOTE | 2024-09-25 15:14 | PC.NURSE ---
patient transfered vias gurney to room 257. hand off report given to Elicia phipps. site is soft, flat, nontender, and no signs of hematoma. dressing is clean dry and intact. notified Elicia Phipps to continue integrelin drip for 12hrs. integrelin to be stop at 2315. patient alert and oriented GCS of 15
[2024-09-25] MEDS: POTASSIUM CHLORIDE 20 mEq TABCR 40 MEQ PO (15:54)
[2024-09-25] MEDS: Magnesium Sulfate 2 GM Ivpb 2 GM/50 ML BAG IV (15:54)
[2024-09-25 20:36] LABS: Albumin, Serum 3.8 gm/dL (3.5-5.0); Anion Gap 11 (7-16); BUN/Creatinine Ratio 15 Ratio (12-20); Blood Urea Nitrogen 15 mg/dL (9-23); Calcium 8.5 mg/dL (8.3-10.6); Calcium (Corrected) 8.7 mg/dL (8.5-10.1); Carbon Dioxide 23.3 mMol/L (20.0-31.0); Chloride 103 mMol/L (98-107); Estimated Creatinine Clearance 84.5 mL/min (>60); Glucose 130 mg/dL (74-106); Osmolality,Calculated 276 (275-295); Phosphorous 4.5 mg/dL (2.4-5.1); Potassium 4.1 mMol/L (3.4-5.1); Sodium 137 mMol/L (136-145); eGFR > 60 See Note
[2024-09-25 20:42] LABS: Amphetamine/Methamp Scrn,U Positive (Negative); Barbiturate Screen,Urine Negative (Negative); Benzodiazepines Screen,Urine Positive (Negative); Benzoylecgonine Screen, Ur Negative (Negative); Fentanyl Screen,Urine Negative (Negative); Opiate Screen,Urine Positive (Negative); THC Screen,Urine Positive (Negative)
[2024-09-25] MEDS: TICAGRELOR 90 MG TABLET PO (20:59)
[2024-09-25] MEDS: guaiFENesin/DM 10 ML UDC PO (22:24)
[2024-09-25] MEDS: ACETAMINOPHEN 500 MG TABLET 1000 MG PO (23:28)
[2024-09-26] VITALS (97 sets, daily range): BP systolic 74–115; BP diastolic 42–76; PULSE 70–100; RESP 12–97; TEMP 36.1–38.1; O2SAT 74–100
--- NOTE | 2024-09-26 01:09 | ESPR_ITS ---
RE: PIPO GOLDEN : 1970 DATE OF SERVICE: 09/25/2024 SUBJECTIVE: Osorio is a 53-year-old male admitted to the hospital with massive acute anterolateral myocardial infarction, AVR ST elevation. Left main 100% occluded. He underwent successful complex FOAM CHARGER, left main LAD, successfully placed 4 mm stent. He appears to be doing well with no shortness of breath, chest pressure. Blood pressure on the low side but normal. The patient began for 12 hours and continued aspirin and Brilinta subsequently. OBJECTIVE: Vital Signs: On exam this evening blood pressure 95/62. Pulse rate 90, respiratory rate is 26. Temperature is normal. Neck: Supple. No JVD. Chest: Symmetrical. Lungs: Decreased breath sounds. No rales or rhonchi. Heart: S1, S2 regular. Abdomen: Thin and soft. Extremities: No edema. ASSESSMENT: 1. Acute anterolateral myocardial infarction due to left main coronary artery occlusion, underwent successful primary angioplasty with stent placement with excellent result. CHAGO flow was 0, improved to 3. Stenosis was 100% before and 0% after and he continues to improve and I will continue all current medications. Keep overnight in the intensive care unit ICU. If he remains stable transfer from ICU to telemetry floor. Medication list includes aspirin and Brilinta combination along with diuretic as necessary if he goes into heart failure. DT: 23:56:32 TT: 00:42:00 Ref: [id number] - TID: [id number]
--- NOTE | 2024-09-26 01:27 | ESCONSULT_ITS ---
RE: PIPO GOLDEN : 1970 DATE OF CONSULTATION: 09/25/2024 CONSULTING PHYSICIANS: Emergency room physician, Dr. Hermosillo. REASON FOR CONSULTATION: Acute ST-segment elevation myocardial infarction, AVR ST elevation, possibly left main occlusion. HISTORY OF PRESENT ILLNESS: The patient is a 53-year-old male with no medical problems. 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 He has a history of smoking one pack of cigarettes daily, doing well until recently. Last couple of months he began having recurrent intermittent chest tightness. He did not seek medical attention, but today, the patient around 9:00 a.m. presented to the emergency room with severe crushing chest pain that began around 8:00 a.m. while he was unloading from the truck. He described the pain as severe aching sensation localized in the left side of the chest with radiation, shortness of breath, sweating, and nausea. In the emergency room, the patient was found to be acutely ill with diaphoresis and shortness of breath and chest pain. EKG showed evidence of ST elevation AVR, ST depression in V1, V2, V4, V5, V6 and there is some suggestion of ST elevation in V1, V2, suggestive of acute extensive anterolateral myocardial infarction, possibly left main stenosis because of AVR elevation. _ and the patient continued to have chest pain hence recommended the patient to have emergency PCI cardiac catheterization laboratory. The patient was then had successful cardiac catheterization showed evidence of 100% left main stenosis, occlusion of the left main coronary artery in the proximal segment with CHAGO 0 flow and subsequently the patient underwent emergency PCI stent placed in left anterior descending artery, left main with drug eluted stent, dilated up to 4.5 mm diameter with excellent results. Chest pain resolved with Levophed, transferred to ICU in stable condition. ALLERGIES: NONE. MEDICATIONS AT HOME: None. PAST MEDICAL HISTORY: None. SOCIAL HISTORY: The patient is a smoker, smokes a pack of cigarettes daily. Works very hard. FAMILY HISTORY: Noncontributory. REVIEW OF SYSTEMS: Cardiovascular: Intermittent shortness of breath and mostly chest pain. Gastrointestinal: No history of nausea or vomiting. Genitourinary: No frequency or dysuria. PHYSICAL EXAMINATION: GENERAL: Well-nourished, pleasant male, alert, awake, in acute distress, acute shortness of breath, diaphoresis because of acute myocardial infarction. VITAL SIGNS: Pulses present, but is on the slow side. Heart rate is about 80. Respirations 18. Temperature normal. HEENT: Head is atraumatic and normocephalic. Eyes normal. NECK: Supple. No JVD. CHEST: Symmetrical. LUNGS: Clear. HEART: S1 and S2 regular, S4 gallop heard. ABDOMEN: Thin and soft. EXTREMITIES: No edema. GENITOURINARY AND RECTAL: Not performed. CENTRAL NERVOUS SYSTEM: Normal. DIAGNOSTIC DATA: EKG showed evidence of _ST elevation in AVR. The ST depression inferolateral lead is suggestive of extensive left main occlusion. IMPRESSION/ASSESSMENT: Acute anterolateral myocardial infarction due to significant left main occlusion, 100% occlusion of the left main coronary artery, underwent angioplasty, emergency bypass graft surgery with excellent result. Pre-procedure stenosis 100% distal left main post procedure 0%. Preprocedure CHAGO flow 0 and postprocedure CHAGO flow 3. RECOMMENDATIONS: The patient will be admitted to intensive care unit overnight and transfer to telemetry tomorrow. Probably continue with low-dose aspirin every day and along with nitroglycerin as necessary and Brilinta 90 mg twice daily. High-dose statin therapy will be started, iNTEGRE;IN___ will be continued for 12 hours. I would like to thank you for referring this patient for cardiovascular evaluation. I will be glad to follow the patient with you. I did perform angioplasty with stent placement of left main coronary artery. a 3.5 x 18 mm Medtronic stent post dilated using a 4.5 mm balloon. There was no residual stenosis. CHAGO flow improved from 0 to 3 and the lesion was 100% occlusion before and 0% post. The patient did go into heart failure just briefly. Dose of Lasix was given in the collaborating supervising physician. DT: 23:45:54 TT: 00:44:00 Ref: [id number] - TID: [id number] MTDD
--- NOTE | 2024-09-26 02:03 | ESOP_ITS ---
RE: PIPO GOLDEN : 1970 DATE OF OPERATION: 09/25/2024 PROCEDURES PERFORMED: 1. Emergency diagnostic left heart cardiac catheterization, selective coronary angiogram, left ventricular angiogram, CPT 65663. 2. Emergency PCI, stent placement in distal left main coronary artery, placement of drug-eluting stent, preprocedure stenosis 100%, postprocedure 0%, preprocedure CHAGO flow 0, postprocedure CHAGO flow 3. 3. Coronary angioplasty is 10% proximal left anterior descending artery, preprocedure stenosis 100% postprocedure 0%, preprocedure CHAGO flow 0, postprocedure CHAGO flow 3, CPT 18968. 4. Conscious sedation for 1-hour duration. 5. Ultrasound-guided access of the right radial artery. DIAGNOSES: Acute extensive anterolateral myocardial infarction, acute ST- elevation myocardial infarction with aortic valve replacement and ST-segment elevation. HISTORY AND INDICATIONS: The patient is a 53-year-old male with history of smoking; otherwise, no major risk factors, presented to the emergency room after 09:00 with episodes of severe substernal chest pain, crushing chest pain, lasted for several minutes, was given Dilaudid and morphine for pain, did not improve, hence emergency PCI and cardiac catheterization recommended. DESCRIPTION OF PROCEDURE: The patient was brought to cardiac catheterization laboratory. He was given 2 mg Versed for sedation and 100 mcg fentanyl. Right radial approach was taken. Right radial artery was cannulated by micropuncture technique and 6-Trinidadian Glidesheath introduced. Subsequently, 6-Trinidadian TIG4 diagnostic catheterization was performed by right coronary angiogram, left heart catheterization and LV angiogram. Subsequently, I chose a JL4 diagnostic catheter to cannulate the left main coronary artery and left coronary angiogram performed showed evidence of 100% occlusion of the distal left main coronary artery, completely occluded with no distal flow to LAD or circumflex artery. Right coronary artery is large and dominant and showed mild irregularities with no significant stenosis. Following diagnostic procedure intervention undertaken. The patient was given IV heparin. Additional dose 5000 plus 3000 ,total of 8000 units. He was given loading dose of aspirin and dual antibiotic drugs including Brilinta and Integrilin _ because aspirin was given fairly late in the course. After the left ventricular angiogram, right coronary angiogram was performed by TIG4 diagnostic catheter. I used a 6-Trinidadian JL3.5 guiding catheter to easily cannulate :left main coronary artery showed evidence of 100% occlusion in the distal left main coronary artery. The patient is already loaded with heparin 8000 units. ACT was satisfactory. Proceeded with PCI. Lesion was crossed using 0.014 Runthrough guidewire predilated using 2.5 mm balloon. Immediately, the blood flow was restored within 70 minutes following admission. Door to ballon _ time was 70 minutes. The left main coronary artery was engaged. The wire was in the circumflex artery. CHAGO 3 flow was immediately established. Subsequently, wire was placed in the left anterior descending artery. Dilation and angioplasty of the left anterior descending artery and distal left main artery was performed. Subsequently, 3.5 x 18 mm Synergy drug-eluting stent was placed in the proximal left anterior descending artery and left main coronary artery with excellent result. Subsequently, a 3.5 x 18 mm Proxima Canciontronic drug-eluting stent Jaffrey was deployed quickly with . Subsequently, 4 mm NC balloon used to dilate the lesion and stent subsequently 4.5 mm x 15 mm balloon by [employer] used to post dilate the lesion aggressively to 16 atmospheres. Subsequently, a final angiogram showed widely patent circumflex artery, nondominant, widely patent left main coronary artery, widely patent left anterior descending artery. CHAGO flow improved from 0 to 3. Persistent stenosis 100% before the procedure, 0% post-procedure. Complications none. The patient was given IV Levophed. The risk of procedure was decreased. Sent to intensive care unit to be treated medically for cardiogenic shock, status post stent into the left main coronary artery. Rest of the angiogram showed following findings: Right coronary artery is large and dominant with mildly irregularity, no significant stenosis. Left main coronary artery post stent deployment showed no residual stenosis. Left anterior descending artery because of acute angulation appears to show mild disease at the closest margin. Circumflex artery is normal essentially. Small nondominant vessel. PLAN: Continue aspirin and Brilinta overnight in ICU and watch for any hypertension. Levophed can be continued as above. DT: 00:02:38 TT: 01:57:00 Ref: [id number] - TID: [id number] [facility]
[2024-09-26 05:07] LABS: Basophils % (Auto) 0 % (0-2.5); Eosinophils % (Auto) 0 % (0-10); Immature Granulocytes % (Auto) 0 % (0-0); Immature Granulocytes Auto 0.06 Thou/mm3 (0.00-0.00); Lymphocytes # (Auto) 1.2 Thou/mm3 (1.0-4.8); Lymphocytes % (Auto) 8 % (10-50); Mean Corpuscular HGB Conc 34.1 g/dl (31.0-37.0); Mean Corpuscular Volume 94 fL (80-100); Monocytes # (Auto) 0.7 Thou/mm3 (0.0-0.8); Monocytes % (Auto) 5 % (0-12); Neutrophils # (Auto) 12.2 Thou/mm3 (1.8-7.7); Neutrophils % (Auto) 86 % (37-80); Nucleated Red Blood Cell % 0 /100 WBC (0); Platelet Count 287 Thou/mm3 (140-440); RDW Standard Deviation 44.4 fL (35.1-43.9); Red Blood Count 4.38 Miln/mm3 (4.50-5.90); White Blood Count 14.1 Thou/mm3 (3.8-10.6)
[2024-09-26 05:19] LABS: Glucose Estimated Average 105 mg/dL (80-131); Hemoglobin A1C 5.3 % Hgb (4.8-6.0)
[2024-09-26 05:26] LABS: Albumin, Serum 3.4 gm/dL (3.5-5.0); Anion Gap 11 (7-16); BUN/Creatinine Ratio 22 Ratio (12-20); Blood Urea Nitrogen 20 mg/dL (9-23); Calcium 8.3 mg/dL (8.3-10.6); Calcium (Corrected) 8.8 mg/dL (8.5-10.1); Carbon Dioxide 22.5 mMol/L (20.0-31.0); Cardiac Risk Estimate 4.8 RATIO (4.0-6.7); Chloride 105 mMol/L (98-107); Cholesterol 213 mg/dL (132-200); Creatinine (Component) 0.9 mg/dL (0.6-1.3); Estimated Creatinine Clearance 93.9 mL/min (>60); Glucose 130 mg/dL (74-106); HDL Cholesterol 44 mg/dL (40-60); Iron 17 mcg/dL (65-175); LDL Cholesterol,Calculated 134 mg/dL (0-130); Osmolality,Calculated 280 (275-295); Percent Iron Saturation 5 % (20-55); Phosphorous 3.4 mg/dL (2.4-5.1); Potassium 4.4 mMol/L (3.4-5.1); Sodium 138 mMol/L (136-145); Total Iron Binding Capacity 292 mcg/dL (250-425); Triglycerides 177 mg/dL (30-150); Unsaturated Iron Binding 275 (225-295); eGFR > 60 See Note
[2024-09-26 06:08] LABS: COVID-19 Antigen (In-House) Negative (Negative); Influenza A Ag Negative; Influenza B Ag Negative
--- NOTE | 2024-09-26 07:19 | XR_ITS ---
Examination: AP chest single view TECHNIQUE: Portable sitting AP chest single view Date and time: September 26, 2024 0727 hours Comparison September 25, 2024 INDICATIONS: Shortness of breath coughing today. FINDINGS: Prominent bilateral pneumonia. Normal heart size Lordotic chest IMPRESSION: Prominent bilateral pneumonia
[2024-09-26 07:48] LABS: Procalcitonin 0.29 ng/ml (0.0-0.49)
[2024-09-26] MEDS: NICOTINE PATCH 7 MG/24 HR PATCH.TD24 TOP (08:54)
[2024-09-26] MEDS: VIT B12/Vit C/FA (Nephrovite) TABLET 1 TAB PO (08:54)
[2024-09-26] MEDS: ASPIRIN EC 81 MG TABEC PO (08:54)
[2024-09-26] MEDS: BENZOCAINE/MENTHOL 1 LOZENGE PO (08:54)
[2024-09-26] MEDS: TICAGRELOR 90 MG TABLET PO ×2 (08:54→20:08)
[2024-09-26] MEDS: FUROSEMIDE INJ 10 MG/ML 4ML VIAL 40 MG IVP ×2 (10:55→17:36)
[2024-09-26] MEDS: MORPHINE SULF INJ 10 MG/ML VIAL 2 MG IVP (11:02)
--- NOTE | 2024-09-26 11:06 | EKG_ITS ---
[facility] Test Date: 2024-09-26 Pat Name: PIPO GOLDEN Department: Room: S257A Gender: Male Office Messenger: RT STUDENT : 1970 Requested By: Kenneth Padron Order Number: [id number] Reading MD: Kenneth Padron Measurements Intervals [place] Rate: 85 P: 25 SD: 130 QRS: -67 QRSD: 97 T: 72 QT: 398 QTc: 475 Interpretive Statements SINUS RHYTHM POSSIBLE RIGHT VENTRICULAR CONDUCTION DELAY LEFT ANTERIOR FASCICULAR BLOCK ANTEROLATERAL MYOCARDIAL INFARCTION , PROBABLY RECENT ACUTE [place] Compared to ECG 09/25/2024 09:06:59 Left anterior fascicular block now present Indeterminate axis no longer present Right bundle-branch block no longer present Left ventricular hypertrophy no longer present ST (T wave) deviation no longer present Myocardial infarct finding still present /store/S0/[id number]
[2024-09-26] MEDS: NITROGLYCERIN 0.4 MG SUBL BTL #25 SL ×2 (11:26→11:34)
--- NOTE | 2024-09-26 11:45 | PC.NURSE ---
At 1100 patient was c/o pressure to mid sternum, denies any radiation to a different part of the body. Pt stated that he feels SOB and has a cough that wont stop that is also causing some throat irritation. I notified Dr. Echols regarding findings, per md not to give any nitro at this time because of the blood pressure being on the lower side. Patient complain that the pain was intensifying to the posint were he is becoming SOB and not taking deep breaths. Oxy mask increase to 15L and morphine given for pain. Pt continued to c/o pain to the chest, resident doctor spoke with alyssa Martinez, he ordered to give nitro sl. It took 2 nitros for patient to have chest pain more tolerable. Dr. shah will be taking patient immediately to microbiological lab technician.
[2024-09-26] MEDS: HEPARIN SOD INJ 5000 UNIT/ML VIAL 7000 UNIT IVP (11:49)
--- NOTE | 2024-09-26 11:53 | ESPR_ITS ---
Documentation for date of: 09/26/24 Subjective Subjective Interval history: This is a 53-year-old male who was brought to the hospital yesterday for chest pain. He was found to have acute coronary syndrome with acute occlusion to his LAD and was taken to the Site Administrator. He underwent an angioplasty and stent placement to the LAD. He was hypotensive and in cardiogenic shock. He was placed on Levophed and a nitro drip. On arrival to the ICU the Levophed drip was still on however nitro drip was off. There were no acute overnight events. This morning patient started to complain once more of retrosternal chest pain. He states that the pain comes with coughing and then dissipates slowly after this. He complains of cough and some intermittent shortness of breath. Good urinary output, afebrile Critical Care Note Critical care time (min.): 40 Exam Vital Signs Temp Pulse Resp BP Pulse Ox O2 Del Method O2 Flow Rate 98.8 F 85 18 90/67 91 L Nasal Cannula 5 09/26/24 04:01 09/26/24 11:34 09/26/24 10:16 09/26/24 11:34 09/26/24 07:15 09/25/24 18:00 09/25/24 18:16 FiO2 32 09/25/24 22:00 Narrative Exam General-no acute distress, awake alert and oriented, Yakut-speaking, normal body habitus HEENT normocephalic, atraumatic, sclera icteric, pupils equal reactive, oral mucosa is hydrated, neck is supple Chest-coarse breath sounds bilateral with occasional expiratory wheeze, no crackles auscultated either anterior or posteriorly heart rate regular rhythmic no bridge murmurs auscultated, no increased work of breathing Abdomen-soft, nontender, bowel sounds present, no rebound or guarding Extremities-pulses palpable, no clubbing, no mottling, moves all 4 Physical Exam Completion Physical Exam Complete?: Yes Objective - Customer Loyalty Representative Labs 09/27/24 04:42 09/27/24 04:42 Labs: Laboratory Results - last 24 hr 09/25/24 09/25/24 09/26/24 19:15 19:47 04:20 WBC RBC Hgb Hct MCV MCH MCHC RDW Std Deviation Plt Count Neut % (Auto) Lymph % (Auto) [place] % (Auto) Eos % (Auto) Baso % (Auto) Neut # (Auto) Lymph # (Auto) [place] # (Auto) Eos # (Auto) Baso # (Auto) Immature Gran # (Auto) Absolute Nucleated RBC Immature Gran % Nucleated RBC % Sodium 137 Potassium 4.1 D Chloride 103 Carbon Dioxide 23.3 Anion Gap 11 BUN 15 Creatinine 1.0 Estim Creat Clear Calc 84.5 eGFR > 60 BUN/Creatinine Ratio [address] Glu mg/dL Hemoglobin A1c Calculated Osmolality 276 Calcium 8.5 Corrected Calcium 8.7 Phosphorus 4.5 Magnesium Iron TIBC Iron Saturation Unsat Iron Binding Albumin 3.8 Triglycerides Cholesterol LDL Cholesterol, Calc HDL Cholesterol Cholesterol/HDL Ratio Procalcitonin Urine Opiates Screen Positive A Urine Fentanyl Screen Negative Ur Barbiturates Screen Negative U Amphetamin/Meth Scrn Positive A U Benzodiazepines Scrn Positive A U Cocaine Metab Screen Negative U Marijuana (THC) Screen Positive A Influenza A (Rapid) Negative Influenza B (Rapid) Negative SARS-CoV-2 Ag (Rapid) Negative 09/26/24 04:47 WBC 14.1 H D RBC 4.38 L Hgb 14.0 Hct 41.0 MCV 94 MCH 32.0 MCHC 34.1 RDW Std Deviation 44.4 H Plt Count 287 Neut % (Auto) 86 H Lymph % (Auto) 8 L [place] % (Auto) 5 Eos % (Auto) 0 Baso % (Auto) 0 Neut # (Auto) 12.2 H Lymph # (Auto) 1.2 [place] # (Auto) 0.7 Eos # (Auto) 0.0 Baso # (Auto) 0.0 Immature Gran # (Auto) 0.06 H Absolute Nucleated RBC 0.00 Immature Gran % 0 Nucleated RBC % 0 Sodium 138 Potassium 4.4 Chloride 105 Carbon Dioxide 22.5 Anion Gap 11 BUN 20 Creatinine 0.9 Estim Creat Clear Calc 93.9 eGFR > 60 BUN/Creatinine Ratio 22 H Glucose [address] Glu mg/dL 105 Hemoglobin A1c 5.3 Calculated Osmolality 280 Calcium 8.3 Corrected Calcium 8.8 Phosphorus 3.4 Magnesium 2.0 Iron 17 L TIBC 292 Iron Saturation 5 L Unsat Iron Binding 275 Albumin 3.4 L Triglycerides 177 H Cholesterol 213 H LDL Cholesterol, Calc 134 H HDL Cholesterol 44 Cholesterol/HDL Ratio 4.8 Procalcitonin 0.29 Urine Opiates Screen Urine Fentanyl Screen Ur Barbiturates Screen U Amphetamin/Meth Scrn U Benzodiazepines Scrn U Cocaine Metab Screen U Marijuana (THC) Screen Influenza A (Rapid) Influenza B (Rapid) SARS-CoV-2 Ag (Rapid) Assessment & Plan Additional Plan Additional Plan: In summary is a 53-year-old male admitted to the ICU with ACS and cardiogenic shock a/p CLOUD SYSTEMS ARCHITECT Stable CV Cardiogenic shock-secondary to patient's acute [place], he had an acute occlusion of his LAD which was intervened on by cardiology yesterday. He had an angioplasty with stent placement. He was on Integrilin. He is on aspirin and Brilinta. He is currently off of his Levophed. This morning he developed repeat crushing retrosternal chest pain which he states seems to come with his cough. EKG changes were noted and cardiology was contacted. Decision to take the patient back to the Site Administrator for reevaluation of his stent was made. Will await further cardiology recommendations HFrEF- will eventually need ACEI/ARB - started on lasix today - on statin - current EF 30% Resp Pulmonary edema-patient appears to have developed a cardiogenic wheeze and has bilateral infiltrates on chest x-ray today. Will give Lasix Tobacco abuse-nicotine patch Renal stable GI Diet- cardiac diet Endo Dyslipidemia-started on atorvastatin Heme Leukocytosis-likely reactive in nature Iron deficiency-will need further eval as an outpatient patient is over 50 and it is unclear if he has had a colonoscopy in the past ID Stable Case discussed with ICU team Labs, imaging and records reviewed Approximately 40 critical care minutes required for evaluation, exam, review, intervention, discussion and formulation of plan of care for this critically ill patient with cardiogenic shock and ACS Provider Notation Provider Notation: Although this document has been carefully reviewed, there may still be some phonetic and other typographical errors. These errors are purely grammatical due to imperfections in the software program and should not be construed in any way to compromise the substance of the patient's medical care during this visit. Thank you for the opportunity and privilege in assisting you with this patient's care and management.
[2024-09-26] MEDS: EPTIFIBATIDE IVPB 75 MG/100 ML VIAL 12.528 MG IV ×3 (12:46→19:21)
--- NOTE | 2024-09-26 13:36 | PC.SS ---
CONCRETE FINISHER APPRENTICE conducted bedside contact with the patient conduct initial assessment and to discuss discharge planning.? At bedside with patient was daughter, Jacklyn Ac .? Patient is Jamaican speaking.? Daughter provided information for assessment and discharge planning.? Patient resides at home with family.? 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 ?Patient does not utilize DME.? Patient does not utilize home oxygen.? Patient possesses the ability to complete ADL?s independently.? Patient?s medical surrogate decision maker is daughter, Jacklyn Ac.? Patient utilizes [facility] for PCP services.? The patient does not possess any specialty providers.? The patient does not participate with dialysis nor does the patient possess diabetes.? Patient utilizes [facility] for medication services.? Discharge plan is for the patient to return home at the time of discharge.? Family will provide transportation on behalf of the patient.? No discharge needs identified by the patient?s daughter. ?No further intervention required at this time, marriage and family social worker will be available to address any further concerns.? Next of Kin: Jacklyn Culvera D/C Plan: Home
--- NOTE | 2024-09-26 14:11 | PD.RESPRO ---
Documentation for date of: 09/26/24 Subjective Subjective Interval history: Mr Ac is a 53-year-old male with no significant past medical history presents to the ED on 09/25 with acute onset chest pain. Patient described his pain as 9/10, that began around 08:00 AM while unloading wood from a truck and progressively got worse. In the ED, he describes the pain as severe, aching in nature, and localized to the left side of his chest without radiation. The pain is accompanied by nausea and sweating. The patient reports awakening this morning feeling at his usual state of health. He denies any prior episodes of similar pain and has no known history of cardiac disease. Labs showed Trops 0.924. In the ED, vitals showed acute drop in BP 70/50s and tachycardia 110/120s bpm, oxygen saturations dropped to 92%. EKG showed ST changes, depressions in leads I, aVL, v5 and V6. ST elevations seen on aVR. 09/25: Patient was taken to cardiac dairy lab technician for acute intervention. Post CCL patient was brought to ICU for further monitoring. 09/26: Patient was seen and examined at bedside this AM. No acute events overnight. Patient tolerating diet, adequate urine output and mentation is at baseline. He was given DAPT and Eptifibatide gtt until 11pm on 09/25. Patient started complaining of sudden chest pain around 11am. EKG showed ST elevations in leads v3 - v6. Cardiology was informed of the changes, recommended morphine and nitro SL x1 tab. Patient's pain reduced after these measures but remained 3/10 and constant. Cardiology advised giving IV Heparin 7000 U x1 for possible stent thrombosis. Subsequently, he was moved to the [facility] for PCI, he is s/p another LAD stent placement, distal to the original one. Post CCL patient was brought to ICU for continued monitoring Exam Vital Signs Temp Pulse Resp BP Pulse Ox O2 Del Method O2 Flow Rate 97.0 F 85 20 88/60 L 96 Nasal Cannula 5 09/26/24 13:06 09/26/24 13:45 09/26/24 13:45 09/26/24 13:45 09/26/24 13:45 09/26/24 13:45 09/26/24 13:45 FiO2 32 09/25/24 22:00 Narrative Exam Constitutional Alert, oriented x3 and comfortable on 1L of oxygen via NC, sats 94-95% HEENT Vision grossly intact. Patent nares. Trachea midline. Respiratory Chest normal on inspection and clear to auscultation bilaterally. Cardiovascular S1 and S2 audible, RRR. No murmurs or carotid bruit. No gross JVD. Abdominal Soft and BS + ; non tender to palpation in all quadrants. Genitourinary No bladder tenderness, no flank pain. Normal to palpation. Musculoskeletal Extremities tone within normal limits. RT LE edema 2/2 black spider bite. Neurological CN II - XII grossly intact. Extremity motor and sensation grossly intact. Skin Warm, dry and intact. No apparent lesions. Psychiatric Patient has a good affect, is cooperative. Objective Labs 09/26/24 04:47 09/26/24 04:47 Labs: Laboratory Results - last 24 hr 09/25/24 09/25/24 09/26/24 19:15 19:47 04:20 WBC RBC Hgb Hct MCV MCH MCHC RDW Std Deviation Plt Count Neut % (Auto) Lymph % (Auto) [place] % (Auto) Eos % (Auto) Baso % (Auto) Neut # (Auto) Lymph # (Auto) [place] # (Auto) Eos # (Auto) Baso # (Auto) Immature Gran # (Auto) Absolute Nucleated RBC Immature Gran % Nucleated RBC % Activated Clotting Time Sodium 137 Potassium 4.1 D Chloride 103 Carbon Dioxide 23.3 Anion Gap 11 BUN 15 Creatinine 1.0 Estim Creat Clear Calc 84.5 eGFR > 60 BUN/Creatinine Ratio 15 [address]ucose [address] Glu mg/dL Hemoglobin A1c Calculated Osmolality 276 Calcium 8.5 Corrected Calcium 8.7 Phosphorus 4.5 Magnesium Iron TIBC Iron Saturation Unsat Iron Binding Albumin 3.8 Triglycerides Cholesterol LDL Cholesterol, Calc HDL Cholesterol Cholesterol/HDL Ratio Procalcitonin Urine Opiates Screen Positive A Urine Fentanyl Screen Negative Ur Barbiturates Screen Negative U Amphetamin/Meth Scrn Positive A U Benzodiazepines Scrn Positive A U Cocaine Metab Screen Negative U Marijuana (THC) Screen Positive A Influenza A (Rapid) Negative Influenza B (Rapid) Negative SARS-CoV-2 Ag (Rapid) Negative 09/26/24 09/26/24 04:47 12:24 WBC 14.1 H D RBC 4.38 L Hgb 14.0 Hct 41.0 MCV 94 MCH 32.0 MCHC 34.1 RDW Std Deviation 44.4 H Plt Count 287 Neut % (Auto) 86 H Lymph % (Auto) 8 L [place] % (Auto) 5 Eos % (Auto) 0 Baso % (Auto) 0 Neut # (Auto) 12.2 H Lymph # (Auto) 1.2 [place] # (Auto) 0.7 Eos # (Auto) 0.0 Baso # (Auto) 0.0 Immature Gran # (Auto) 0.06 H Absolute Nucleated RBC 0.00 Immature Gran % 0 Nucleated RBC % 0 Activated Clotting Time 365.0 H Sodium 138 Potassium 4.4 Chloride 105 Carbon Dioxide 22.5 Anion Gap 11 BUN 20 Creatinine 0.9 Estim Creat Clear Calc 93.9 eGFR > 60 BUN/Creatinine Ratio 22 H Glucose [address] Glu mg/dL 105 Hemoglobin A1c 5.3 Calculated Osmolality 280 Calcium 8.3 Corrected Calcium 8.8 Phosphorus 3.4 Magnesium 2.0 Iron 17 L TIBC 292 Iron Saturation 5 L Unsat Iron Binding 275 Albumin 3.4 L Triglycerides 177 H Cholesterol 213 H LDL Cholesterol, Calc 134 H HDL Cholesterol 44 Cholesterol/HDL Ratio 4.8 Procalcitonin 0.29 Urine Opiates Screen Urine Fentanyl Screen Ur Barbiturates Screen U Amphetamin/Meth Scrn U Benzodiazepines Scrn U Cocaine Metab Screen U Marijuana (THC) Screen Influenza A (Rapid) Influenza B (Rapid) SARS-CoV-2 Ag (Rapid) Quality Measures Quality Measures none Assessment & Plan Assessment Current Active Medications: Generic Name Dose Route Start Last Admin Trade Name Freq PRN Reason Stop Dose Admin Acetaminophen 1,000 mg 09/25/24 15:46 09/25/24 23:28 Acetaminophen 500 Mg Tablet PO 10/25/24 15:45 1,000 mg Q6HR PRN Administration Fever >99.9 Aspirin 81 mg 09/26/24 09:00 09/26/24 08:54 Aspirin Ec 81 Mg Tabec PO 10/26/24 08:59 81 mg QDAY NEMO Administration Atorvastatin Calcium 80 mg 09/26/24 21:00 Atorvastatin Calcium 20 Mg Tablet PO 10/26/24 20:59 HS NEMO Benzocaine 1 lozenge 09/26/24 08:41 09/26/24 08:54 Benzocaine/Menthol 1 Lozenge PO 10/26/24 08:40 1 lozenge Q4HR PRN Administration SORE THROAT Norepinephrine/Dextrose 8 mg in 250 mls @ 7.416 mls/hr 09/25/24 11:06 09/25/24 17:53 Levophed In D5w 8mg/250ml IV 10/25/24 11:05 0 mcg/kg/min .Q24H PRN 0 mls/hr PER PROTOCOL Titration Protocol 0.05 MCG/KG/MIN Eptifibatide 75 mg in 100 mls @ 12.528 mls/hr 09/26/24 12:46 09/26/24 12:46 Integrilin Ivpb IV 09/26/24 20:44 2 mcg/kg/min X1 ONE 12.528 mls/hr Administration 2 MCG/KG/MIN Morphine Sulfate 2 mg 09/25/24 11:02 09/26/24 11:02 Morphine Sulf Inj 10 Mg/Ml Vial IVP 09/30/24 11:01 2 mg Q2H PRN Administration PAIN Protocol Nicotine 7 mg 09/26/24 07:00 09/26/24 08:54 Nicotine Patch 7 Mg/24 Hr Patch.Td24 TOP 10/26/24 06:59 7 mg QDAY NEMO Administration Nitroglycerin 0.4 mg 09/25/24 09:06 09/26/24 11:34 Nitroglycerin 0.4 Mg Subl Btl #25 SL 0.4 mg Q5M PRN Administration CHEST PAIN Ondansetron HCl 4 mg 09/25/24 18:53 09/25/24 19:05 Ondansetron Inj 2 Mg/Ml Inj 2 Ml IVP 10/25/24 18:52 4 mg Q6HR PRN Administration NAUSEA OR VOMITING Protocol Ticagrelor 90 mg 09/25/24 21:00 09/26/24 08:54 Ticagrelor 90 Mg Tablet PO 10/25/24 20:59 90 mg BID NEMO Administration Vitamin B Complex/Vit C/Folic Acid 1 tab 09/25/24 16:00 09/26/24 08:54 Vit B12/Vit C/Fa (Nephrovite) Tablet PO 10/25/24 15:59 1 tab QDAY NEMO Administration Plan Mr Ac is a 53-year-old male with no significant past medical history presents to the ED on 09/25 with acute onset chest pain. Patient described his pain as 9/10, that began around 08:00 AM while unloading wood from a truck and progressively got worse. In the ED, he describes the pain as severe, aching in nature, and localized to the left side of his chest without radiation. The pain is accompanied by nausea and sweating. The patient reports awakening this morning feeling at his usual state of health. He denies any prior episodes of similar pain and has no known history of cardiac disease. Labs showed Trops 0.924. In the ED, vitals showed acute drop in BP 70/50s and tachycardia 110/120s bpm, oxygen saturations dropped to 92%. EKG showed ST changes, depressions in leads I, aVL, v5 and V6. ST elevations seen on aVR. Patient was taken to cardiac dairy lab technician for acute intervention. Post CCL patient was brought to ICU for further monitoring. NEURO No active problems CVS Shock, cardiogenic Pulmonary edema Repeat PCI due to possible stent thrombosis Dx: In the ED, vitals showed acute drop in BP 70/50s and tachycardia 110/120s bpm 09/25 : EKG showed ST changes, depressions in leads I, aVL, v5 and V6. ST elevations seen on aVR. 09/26: EKG showed ST elevations in leads v3 - v6. Patient was taken to cardiac dairy lab technician for repeat PCI and an additional stent was placed distal to the 18mm placed on 09/25 Rx: - morphine and nitro SL x1 tab during episode of chest pain - Per cardi recs, IV Heparin 7000 U x1 given for possible stent thrombosis - Post CCL patient was brought to ICU for continued monitoring - Cardiology following, appreciate recommendations - On DAPT with ASA + Brillinta - On Eptifibatide gtt @ 2mcg/h x1 bag ordered - Will keep K >4 and Mg >2 - IV Lasix 120mg on 09/25 --> 40mg x1 on 09/26 - Will do bedside Echo to evaluate further Substance use disorder UTox : +ve for benzo, opiates, marijuana, methamphetamine Rx: Monitor closely gate services supervisor consult before DC for counseling PULM Acute respiratory failure, hypoxic Dry cough 2/2 chronic smoking Dx: In the ED, oxygen saturations dropped to 92% 5 pack years of smoking. Endorses intermittent episodes of cough spells Rx: - Continue oxygen supplementation PRN - Will get breathing treatments if needed, no audible wheezing at this time - Guaifenesin/DM ordered GI/Hep No active problems. RENAL No active problems. HEME/ONC Normocytic Anemia Dx: Hb 12.5 --> 14 , MCV 90s - Currently asymptomatic. Denies generalized weakness or pica - Iron panel: low ion stores. Will hold off on IV iron as anemia seems to have resolved. Rx: - Started daily B12/FA supplements - Will monitor closely to improve post PCI rehabilitation Leukocytosis Dx: WBC 9 --> 14.1 Rx: - Likely due to acute PCI - Will monitor closely with daiy CBC ENDO Hypercholesterolemia Lipid panel : TG 177 and cholesterol 213 Rx: - Atorvastatin 80mg HS ID No active problems. MSK/DERM No active problems. ICU Health maintenance: Dispo: Admit to ICU for post PCI x2 care Diet: Cardiac diet DVT ppx: SCDs GI ppx: Nil IV lines: 2 pIV Central line: No Arterial line: No Krishna: No Code status: FULL CODE - Salomón Khoury M.D. PGY2 Disclaimer: Minor errors in heavy rail train operator may be present as this note was dictated using voice recognition software.
--- NOTE | 2024-09-26 14:52 | PC.NURSE ---
1353 patient is sleepy and arousable, breathing unlabored, s/p C, PCI by Dr. Lerma, dressing to right groin dry with no bleeding or hematoma, site to right wrist from previous access site dry with no bleeding or hematoma. Report received from Peg العلي. Patient running integrilin mcg/kg/min to left forearm IV to be running for [address] Padron at bedside to assess patient, order BMP [id number] report given to Peg العلي, BMP has been drawn.
--- NOTE | 2024-09-26 15:04 | PC.NURSE ---
Hand off report received from Negar العلي from laboratory assistant. Patient is returning to ICU after angiopasty. Awaiting arrival of patient to floor.
--- NOTE | 2024-09-26 15:20 | PC.NURSE ---
Report given to ZOHRA Venegas. Patient being transferred to [facility] via [facility]. Dressing to right groin clean, dry, and intact. No signs of bleeding or hematoma. Patient to be running on Integrilin for 12 hours.
[2024-09-26 16:49] LABS: Anion Gap 12 (7-16); BUN/Creatinine Ratio 22 Ratio (12-20); Blood Urea Nitrogen 20 mg/dL (9-23); Calcium 8.2 mg/dL (8.3-10.6); Chloride 101 mMol/L (98-107); Creatinine (Component) 0.9 mg/dL (0.6-1.3); Estimated Creatinine Clearance 93.4 mL/min (>60); Glucose 93 mg/dL (74-106); Osmolality,Calculated 278 (275-295); Potassium 4.6 mMol/L (3.4-5.1); Sodium 138 mMol/L (136-145); eGFR > 60 See Note
[2024-09-26] MEDS: ACETAMINOPHEN 500 MG TABLET 1000 MG PO (19:20)
--- NOTE | 2024-09-26 19:30 | EKG_ITS ---
[facility] Test Date: 2024-09-26 Pat Name: PIPO GOLDEN Department: Room: S257A Gender: Male Collar Padder Blindstitch: JAMES : 1970 Requested By: Kenneth Padron Order Number: [id number] Reading MD: Kenneth Padron Measurements Intervals [place] Rate: 86 P: 16 [place]: 133 QRS: 62 QRSD: 96 T: 79 QT: 413 QTc: 495 Interpretive Statements SINUS RHYTHM ANTEROLATERAL MYOCARDIAL INFARCTION , PROBABLY RECENT ACUTE [place] Compared to ECG 09/26/2024 15:42:07 Left anterior fascicular block no longer present Myocardial infarct finding still present /store/S0/[id number]/[id number]
--- NOTE | 2024-09-26 20:01 | ESOP_ITS ---
RE: PIPO GOLDEN : 1970 DATE OF OPERATION: 09/26/2024 PROCEDURE PERFORMED: 1. Selective left coronary angiogram. CPT code 34621 2. PCI, PTCA stent placement in the mid left anterior descending artery, placement of drug-eluting stent, 3.0 X 12 mm Synergy stent placement. CPT code 53079 3. PTCA angioplasty of the left main coronary artery with a 5 mm balloon for optimal angioplasty. CPT 67950. 4. Ultrasound guided access of right femoral artery. 5. Iliofemoral angiogram followed by AngioSeal deployment. DIAGNOSES: Coronary artery disease, acute myocardial infarction with left main occlusion, underwent PCI with recurrent chest pain and ST elevation. HISTORY AND INDICATIONS: The patient is a 53-year-old male with a past medical history of no major medical problems. Presented to the hospital on 09/25/[address] segment elevation and myocardial infarction, left main occlusion. Miraculously, the patient underwent PCI with stent placement to the left main coronary artery and LAD was stented. The patient did very well, in fact doing very well on Integrilin infusion overnight until last night. The patient was doing fairly well until this afternoon. Suddenly around morning 11:30, he expressed sudden onset of chest pain again. Similar symptoms, 08/26. Hence he was taken emergently to the cardiac catheterization laboratory for a possible PCI and assessment of left stent thrombosis. DESCRIPTION OF PROCEDURE: The patient was brought to the cardiac catheterization laboratory, was given heparin adequately 7000 units. ACT was measured to be satisfactory and proceeded with angiogram. Right femoral approach taken. Right femoral artery cannulated using a micropuncture technique. A 6 [place] sheath was introduced. Selective left coronary angiogram performed using left JL4 guiding catheter and showed evidence of a widely patent stent, but there is inadequate expansion of the distal _ stent. However, the mid LAD showed evidence of a thrombotic type lesion with 80% narrowing in a couple of views. It looked even worse with TIMI2 flow, some slight Haziness. This appeared to be the culprit lesion. Because of the patient's continued chest pain, we want to address this. A 0.014 Runthrough guidewire was used to cross the lesion successfully, unable to pass the stent. Hence I crossed the lesion again with loop technique with a wire through the stent struts. Able to do angioplasties and deployed stent 3.0 x 12 mm Synergy stent, was deployed in the mid left anterior descending artery_ diagonal branch. There was some distal spasm. Intracoronary nitroglycerin x2 was given. Distal left main coronary artery stent showed possibly inadequate expansion. Artery appeared to be probably 5 mm __ hence I decided to go with 5 mm balloon to dilate the left main and distal left main coronary artery. Using 5 mm noncompliant balloon, an 8 mm balloon was then used to dilate the distal left main coronary artery as well as the proximal portion of the stent as well aggressively with 14 atmospheric pressure with excellent angiographic result. FINDINGS: Final angiogram showed CHAGO 3 flow with no residual stenosis. The mid LAD also widely patent. showed excellent CHAGO-3 flow. SUMMARY OF FINDINGS: 1. Acute thrombotic occlusion of mid left anterior descending artery, new lesion, underwent successful stent placement of the mid left anterior descending artery, pre- procedure stenosis 90%, post-procedure 0%, CHAGO flow pre-procedure 2, post-procedure 3. 2. PTCA, optimal angioplasty of the left main coronary stent with balloon angioplasty, 5 mm NC balloon pre-procedure stenosis of 20% to 30%, post-procedure stenosis was 0%, CHAGO flow pre and post 3. The patient had AngioSeal deployed successfully after iliofemoral angiogram. Transferred to intensive care unit in stable condition. DT: 18:05:30 TT: 19:49:00 Ref: [id number] - TID: [id number] MTD
[2024-09-26] MEDS: ATORVASTATIN CALCIUM 20 MG TABLET 80 MG PO (20:07)
--- NOTE | 2024-09-26 22:29 | ESPR_ITS ---
RE: PIPO GOLDEN : 1970 DATE OF SERVICE: 09/26/2024 TIME: 7:00 p.m. SUBJECTIVE: The patient is a 53-year-old male who was admitted to the hospital with acute massive ST segment elevation myocardial infarction, AVR, ST elevation, left main artery occlusion yesterday. The patient had severe chest pain again, ST elevation anteriorly without AV elevation with LAD occlusion thrombus. Underwent emergency angiogram that showed that there was a thrombotic process, 80% to 85% lesion in the mid left anterior descending artery with a new lesion stenosis. Underwent successful stent placement in the mid left anterior descending artery today. There was also optimal angioplasty of the left main with 5-mm balloon to make it even larger. Continues to feel well now. The chest pain completely resolved. Hemodynamically remains stable. He is also given Integrilin infusion because of thrombotic process. Another 12-hour infusion will be given today. OBJECTIVE: Vital Signs: Blood pressure 90/58, pulse rate is 75. Neck: Supple. No JVD. Chest: Symmetrical. Lungs: Clear. Heart: S1, S2 regular. Abdomen: Thin and soft. Extremities: No edema. The patient continued to have aspirin and Brilinta combination in addition to Integrilin as well. Blood pressure is on the soft side and he would not take any beta blockers or PALOMA and ARB. IMPRESSION/ASSESSMENT: 1. Status post acute extensive ST segment elevation myocardial infarction with left main coronary artery occlusion day 2. 2. Status post stent placement in the left anterior descending artery with recurrent angina and occlusion of the left anterior descending. 3. Severe left ventricular dysfunction, ejection fraction of 30% on echocardiogram. RECOMMENDATIONS: Continue the Integrilin for 12 hours infusion. Aspirin and Brilinta will be continued. Monitor blood pressure closely in intensive care unit. Condition is critical, but stable for now. DT: 21:44:41 TT: 22:03:00 Ref: [id number] - TID: [id number]
--- NOTE | 2024-09-26 23:56 | EKG_ITS ---
[facility] Test Date: 2024-09-27 Pat Name: PIPO GOLDEN Department: Room: S257A Gender: Male Insurance Account Manager: JAMES : 1970 Requested By: Pj Drew Order Number: [id number] Reading MD: Pj Drew Measurements Intervals [place] Rate: 76 P: 26 NH: 149 QRS: 55 QRSD: 100 T: 80 QT: 401 QTc: 451 Interpretive Statements SINUS RHYTHM ANTEROLATERAL MYOCARDIAL INFARCTION , PROBABLY RECENT ACUTE TN Compared to ECG 09/26/2024 18:32:26 No significant changes /store/S0/[id number].pdf
[2024-09-27] VITALS (61 sets, daily range): BP systolic 78–116; BP diastolic 45–95; PULSE 65–93; RESP 7–95; TEMP 36.2–37.4; O2SAT 92–100
[2024-09-27] MEDS: MELATONIN 3 MG TABLET PO
--- NOTE | 2024-09-27 00:07 | PC.RT ---
EKG re ordered due to order not populating on EKG machine, aware.
[2024-09-27] MEDS: SIMETHICONE 80 MG CHEW PO (01:28)
[2024-09-27 05:59] LABS: Basophils % (Auto) 0 % (0-2.5); Eosinophils # (Auto) 0.1 Thou/mm3 (0.0-0.5); Eosinophils % (Auto) 0 % (0-10); Hematocrit 40.3 % (41.0-53.0); Hemoglobin 14.3 g/dL (13.5-16.0); Immature Granulocytes % (Auto) 1 % (0-0); Immature Granulocytes Auto 0.07 Thou/mm3 (0.00-0.00); Lymphocytes # (Auto) 1.5 Thou/mm3 (1.0-4.8); Lymphocytes % (Auto) 11 % (10-50); Mean Corpuscular HGB Conc 35.5 g/dl (31.0-37.0); Mean Corpuscular Hemoglobin 31.9 pg (25.0-35.0); Mean Corpuscular Volume 90 fL (80-100); Monocytes # (Auto) 1.2 Thou/mm3 (0.0-0.8); Monocytes % (Auto) 9 % (0-12); Neutrophils # (Auto) 10.7 Thou/mm3 (1.8-7.7); Neutrophils % (Auto) 80 % (37-80); Nucleated Red Blood Cell % 0 /100 WBC (0); Platelet Count 242 Thou/mm3 (140-440); RDW Standard Deviation 42.3 fL (35.1-43.9); Red Blood Count 4.48 Miln/mm3 (4.50-5.90); White Blood Count 13.5 Thou/mm3 (3.8-10.6)
[2024-09-27 06:23] LABS: Albumin, Serum 3.6 gm/dL (3.5-5.0); Anion Gap 13 (7-16); BUN/Creatinine Ratio 20 Ratio (12-20); Blood Urea Nitrogen 18 mg/dL (9-23); Calcium 8.7 mg/dL (8.3-10.6); Carbon Dioxide 26.9 mMol/L (20.0-31.0); Chloride 99 mMol/L (98-107); Creatinine (Component) 0.9 mg/dL (0.6-1.3); Estimated Creatinine Clearance 93.7 mL/min (>60); Glucose 93 mg/dL (74-106); Magnesium 1.6 mg/dL (1.6-2.6); Osmolality,Calculated 279 (275-295); Phosphorous 2.4 mg/dL (2.4-5.1); Potassium 3.6 mMol/L (3.4-5.1); Sodium 139 mMol/L (136-145); eGFR > 60 See Note
--- NOTE | 2024-09-27 07:49 | XR_ITS ---
Examination: AP chest single view Technique one AP portable upright chest single view Date and time: September 27, 2024 0810 hours Comparison September 26, 2024 INDICATIONS: Congestion shortness of breath this week. FINDINGS: Again noted bilateral pneumonia, slight improvement compared to the prior study Normal heart size IMPRESSION: Significant bilateral pneumonia remains
[2024-09-27] MEDS: CALCIUM CARBONATE 600 MG TABLET PO (07:55)
[2024-09-27] MEDS: ASPIRIN EC 81 MG TABEC PO (08:00)
[2024-09-27] MEDS: VIT B12/Vit C/FA (Nephrovite) TABLET 1 TAB PO (08:00)
[2024-09-27] MEDS: NICOTINE PATCH 7 MG/24 HR PATCH.TD24 TOP (08:00)
[2024-09-27] MEDS: TICAGRELOR 90 MG TABLET PO ×2 (08:00→21:29)
[2024-09-27] MEDS: POTASSIUM CHLORIDE 20 mEq TABCR 40 MEQ PO (08:03)
[2024-09-27] MEDS: Magnesium Sulfate 2 GM Ivpb 2 GM/50 ML BAG IV (08:03)
[2024-09-27] MEDS: PANTOPRAZOLE INJ 40 MG VIAL IVP (08:06)
--- NOTE | 2024-09-27 10:13 | ESPR_ITS ---
Documentation for date of: 09/27/24 Subjective Subjective Interval history: This is a 53-year-old male who was brought to the hospital yesterday for chest pain. He was found to have acute coronary syndrome with acute occlusion to his LAD and was taken to the [facility]. He underwent an angioplasty and stent placement to the LAD. He was hypotensive and in cardiogenic shock. He was placed on Levophed and a nitro drip. On arrival to the ICU the Levophed drip was still on however nitro drip was off. There were no acute overnight events. This morning patient started to complain once more of retrosternal chest pain. He states that the pain comes with coughing and then dissipates slowly after this. He complains of cough and some intermittent shortness of breath. Good urinary output, afebrile 09/27- yesterday pt returned to labor relations representative and had an additional stent placed. This AM has no chest pain, feels well, no SOB , no cough Critical Care Note Critical care time (min.): 0 Exam Vital Signs Temp Pulse Resp BP Pulse Ox O2 Del Method O2 Flow Rate 99.4 F 93 18 107/66 94 L Nasal Cannula 3 09/27/24 04:00 09/27/24 07:05 09/27/24 07:05 09/27/24 07:00 09/27/24 07:00 09/26/24 16:00 09/26/24 18:37 FiO2 32 09/25/24 22:00 Narrative Exam Gen- NAD, AAOx4, nl body habitus HEENT- NC/AT, mucosa hydrated, sclera anicteric Chest- LCTAB, HRRR, no increase in WOB Abd- firm, slightly distended, no palp organomegaly, discomfort with deep palp Ext- no edema, pulses palp, no clubbing, no mottling, moves all 4 Physical Exam Completion Physical Exam Complete?: Yes Objective - Swing Saw Operator Labs 09/27/24 04:42 09/27/24 04:42 Labs: Laboratory Results - last 24 hr 09/26/24 09/26/24 09/27/24 12:24 15:52 04:42 WBC 13.5 H RBC 4.48 L Hgb 14.3 Hct 40.3 L MCV 90 MCH 31.9 MCHC 35.5 RDW Std Deviation 42.3 Plt Count 242 D Neut % (Auto) 80 Lymph % (Auto) 11 [place] % (Auto) 9 Eos % (Auto) 0 Baso % (Auto) 0 Neut # (Auto) 10.7 H Lymph # (Auto) 1.5 [place] # (Auto) 1.2 H Eos # (Auto) 0.1 Baso # (Auto) 0.0 Immature Gran # (Auto) 0.07 H Absolute Nucleated RBC 0.00 Immature Gran % 1 H Nucleated RBC % 0 Activated Clotting Time 365.0 H Sodium 138 139 Potassium 4.6 3.6 D Chloride 101 99 Carbon Dioxide 25.0 26.9 Anion Gap 12 13 BUN 20 18 Creatinine 0.9 0.9 Estim Creat Clear Calc 93.4 93.7 eGFR > 60 > 60 BUN/Creatinine Ratio 22 H 20 Glucose 93 93 Calculated Osmolality 278 279 Calcium 8.2 L 8.7 Corrected Calcium 9.0 Phosphorus 2.4 Magnesium 1.6 Albumin 3.6 Assessment & Plan Additional Plan Additional Plan: In summary is a 53-year-old male admitted to the ICU with ACS and cardiogenic shock 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 need for entresto once BP stabilized - given lasix yesterday - on statin - current EF 30% - give additional dose of lasix today Resp Pulmonary edema-patient appears to have developed a cardiogenic wheeze and has bilateral infiltrates on chest x-ray yesterday. Will give Lasix - improved today Tobacco abuse-nicotine patch Renal HypoK- replete PO HypoMg- replete IV GI Diet- cardiac diet Endo Dyslipidemia-started on atorvastatin Heme Leukocytosis-likely reactive in nature Iron deficiency-will need further eval as an outpatient patient is over 50 and it is unclear if he has had a colonoscopy in the past ID Stable Case discussed with ICU team Labs, imaging and records reviewed Approximately 38 minutes required for evaluation, exam, review, intervention, discussion and formulation of plan of care for this acutely ill pt with OK Provider Notation Provider Notation: Although this document has been carefully reviewed, there may still be some phonetic and other typographical errors. These errors are purely grammatical due to imperfections in the software program and should not be construed in any way to compromise the substance of the patient's medical care during this visit. Thank you for the opportunity and privilege in assisting you with this patient's care and management.
[2024-09-27] MEDS: MIDODRINE 5 MG TABLET 10 MG PO (10:27)
[2024-09-27] MEDS: POTASSIUM CHLORIDE 20 mEq TABCR PO (10:27)
--- NOTE | 2024-09-27 10:43 | PD.RESPRO ---
Documentation for date of: 09/27/24 Subjective Subjective Interval history: Mr Ac is a 53-year-old male with no significant past medical history presents to the ED on 09/25 with acute onset chest pain. Patient described his pain as 9/10, that began around 08:00 AM while unloading wood from a truck and progressively got worse. In the ED, he describes the pain as severe, aching in nature, and localized to the left side of his chest without radiation. The pain is accompanied by nausea and sweating. The patient reports awakening this morning feeling at his usual state of health. He denies any prior episodes of similar pain and has no known history of cardiac disease. Labs showed Trops 0.924. In the ED, vitals showed acute drop in BP 70/50s and tachycardia 110/120s bpm, oxygen saturations dropped to 92%. EKG showed ST changes, depressions in leads I, aVL, v5 and V6. ST elevations seen on aVR. 09/25: Patient was taken to cardiac brush clearing laborer for acute intervention. Post CCL patient was brought to ICU for further monitoring. 09/26: Patient was seen and examined at bedside this AM. No acute events overnight. Patient tolerating diet, adequate urine output and mentation is at baseline. He was given DAPT and Eptifibatide gtt until 11pm on 09/25. Patient started complaining of sudden chest pain around 11am. EKG showed ST elevations in leads v3 - v6. Cardiology was informed of the changes, recommended morphine and nitro SL x1 tab. Patient's pain reduced after these measures but remained 3/10 and constant. Cardiology advised giving IV Heparin 7000 U x1 for possible stent thrombosis. Subsequently, he was moved to the [facility] for PCI, he is s/p another LAD stent placement, distal to the original one. Post CCL patient was brought to ICU for continued monitoring 09/27: Patient examined at bedside this am. No complaints, denies chest pain. Minimal shortness of breath, but O2 sats 7-98% on 1-2L oxygen via NC. Patient did endorse some indigestion and bloating. He was started on IV Protonix 40mg daily for GI prophylaxis. Overnight, patient received simethicone x1 for similar complaints. He requests expressed hesitation in using a bedside commode, and requested a pvt bathroom. However was able to have a successful BM this morning. CXR shows minimal congestion today, much better than yesterday. Will give additional 20mg lasix once BP allows, x1 midodrine 10mg ordered to fagot heater helper MAP. He ambulated successfully, no chest discomfort, oxygen sats dropped to 92-93% but spontaneously corrected to 95-97% on rest. Patient will be downgraded to medical floors after he is diuresed again. Exam Vital Signs Temp Pulse Resp BP Pulse Ox O2 Del Method O2 Flow Rate 99.4 F 91 18 88/60 L 94 L Nasal Cannula 3 09/27/24 04:00 09/27/24 10:27 09/27/24 07:05 09/27/24 10:27 09/27/24 07:00 09/26/24 16:00 09/26/24 18:37 FiO2 32 09/25/24 22:00 Narrative Exam Constitutional Alert, oriented x3 and comfortable on 1L of oxygen via NC, sats 94-95% HEENT Vision grossly intact. Patent nares. Trachea midline. Respiratory Chest normal on inspection and clear to auscultation bilaterally. Cardiovascular S1 and S2 audible, RRR. No murmurs or carotid bruit. No gross JVD. Abdominal Soft and BS + ; non tender to palpation in all quadrants. Genitourinary No bladder tenderness, no flank pain. Normal to palpation. Musculoskeletal Extremities tone within normal limits. RT LE edema 2/2 black spider bite - resolving Neurological CN II - XII grossly intact. Extremity motor and sensation grossly intact. Skin Warm, dry and intact. No apparent lesions. Psychiatric Patient has a good affect, is cooperative. Objective Labs 09/28/24 04:40 09/28/24 04:40 Labs: Laboratory Results - last 24 hr 09/26/24 09/26/24 09/27/24 12:24 15:52 04:42 WBC 13.5 H RBC 4.48 L Hgb 14.3 Hct 40.3 L MCV 90 MCH 31.9 MCHC 35.5 RDW Std Deviation 42.3 Plt Count 242 D Neut % (Auto) 80 Lymph % (Auto) 11 [place] % (Auto) 9 Eos % (Auto) 0 Baso % (Auto) 0 Neut # (Auto) 10.7 H Lymph # (Auto) 1.5 [place] # (Auto) 1.2 H Eos # (Auto) 0.1 Baso # (Auto) 0.0 Immature Gran # (Auto) 0.07 H Absolute Nucleated RBC 0.00 Immature Gran % 1 H Nucleated RBC % 0 Activated Clotting Time 365.0 H Sodium 138 139 Potassium 4.6 3.6 D Chloride 101 99 Carbon Dioxide 25.0 26.9 Anion Gap 12 13 BUN 20 18 Creatinine 0.9 0.9 Estim Creat Clear Calc 93.4 93.7 eGFR > 60 > 60 BUN/Creatinine Ratio 22 H 20 Glucose 93 93 Calculated Osmolality 278 279 Calcium 8.2 L 8.7 Corrected Calcium 9.0 Phosphorus 2.4 Magnesium 1.6 Albumin 3.6 Quality Measures Quality Measures none Assessment & Plan Assessment Current Active Medications: Generic Name Dose Route Start Last Admin Trade Name Freq PRN Reason Stop Dose Admin Acetaminophen 1,000 mg 09/25/24 15:46 09/26/24 19:20 Acetaminophen 500 Mg Tablet PO 10/25/24 15:45 1,000 mg Q6HR PRN Administration Fever >99.9 Aspirin 81 mg 09/26/24 09:00 09/27/24 08:00 Aspirin Ec 81 Mg Tabec PO 10/26/24 08:59 81 mg QDAY NEMO Administration Atorvastatin Calcium 80 mg 09/26/24 21:00 09/26/24 20:07 Atorvastatin Calcium 20 Mg Tablet PO 10/26/24 20:59 80 mg HS NEMO Administration Benzocaine 1 lozenge 09/26/24 08:41 09/26/24 08:54 Benzocaine/Menthol 1 Lozenge PO 10/26/24 08:40 1 lozenge Q4HR PRN Administration SORE THROAT Furosemide 20 mg 09/27/24 10:45 Furosemide Inj 10 Mg/Ml Vial 2 Ml IVP 09/27/24 10:46 X1 ONE Norepinephrine/Dextrose 8 mg in 250 mls @ 7.416 mls/hr 09/25/24 11:06 09/25/24 17:53 Levophed In D5w 8mg/250ml IV 10/25/24 11:05 0 mcg/kg/min .Q24H PRN 0 mls/hr PER PROTOCOL Titration Protocol 0.05 MCG/KG/MIN Midodrine 5 mg 09/27/24 14:00 Midodrine 5 Mg Tablet PO 10/27/24 13:59 TID NEMO Morphine Sulfate 2 mg 09/25/24 11:02 09/26/24 11:02 Morphine Sulf Inj 10 Mg/Ml Vial IVP 09/30/24 11:01 2 mg Q2H PRN Administration PAIN Protocol Nicotine 7 mg 09/26/24 07:00 09/27/24 08:00 Nicotine Patch 7 Mg/24 Hr Patch.Td24 TOP 10/26/24 06:59 7 mg QDAY NEMO Administration Nitroglycerin 0.4 mg 09/25/24 09:06 09/26/24 11:34 Nitroglycerin 0.4 Mg Subl Btl #25 SL 0.4 mg Q5M PRN Administration CHEST PAIN Ondansetron HCl 4 mg 09/25/24 18:53 09/25/24 19:05 Ondansetron Inj 2 Mg/Ml Inj 2 Ml IVP 10/25/24 18:52 4 mg Q6HR PRN Administration NAUSEA OR VOMITING Protocol Pantoprazole Sodium 40 mg 09/27/24 08:05 09/27/24 08:06 Pantoprazole Inj 40 Mg Vial IVP 10/27/24 08:04 40 mg QDAY NEMO Administration Ticagrelor 90 mg 09/25/24 21:00 09/27/24 08:00 Ticagrelor 90 Mg Tablet PO 10/25/24 20:59 90 mg BID NEMO Administration Vitamin B Complex/Vit C/Folic Acid 1 tab 09/25/24 16:00 09/27/24 08:00 Vit B12/Vit C/Fa (Nephrovite) Tablet PO 10/25/24 15:59 1 tab QDAY NEMO Administration Plan Mr Ac is a 53-year-old male with no significant past medical history presents to the ED on 09/25 with acute onset chest pain. Patient described his pain as 9/10, that began around 08:00 AM while unloading wood from a truck and progressively got worse. In the ED, he describes the pain as severe, aching in nature, and localized to the left side of his chest without radiation. The pain is accompanied by nausea and sweating. The patient reports awakening this morning feeling at his usual state of health. He denies any prior episodes of similar pain and has no known history of cardiac disease. Labs showed Trops 0.924. In the ED, vitals showed acute drop in BP 70/50s and tachycardia 110/120s bpm, oxygen saturations dropped to 92%. EKG showed ST changes, depressions in leads I, aVL, v5 and V6. ST elevations seen on aVR. Patient was taken to cardiac brush clearing laborer for acute intervention. Post CCL patient was brought to ICU for further monitoring. NEURO No active problems CVS Shock, cardiogenic Pulmonary edema Repeat PCI due to possible stent thrombosis Dx: In the ED, vitals showed acute drop in BP 70/50s and tachycardia 110/120s bpm 09/25 : EKG showed ST changes, depressions in leads I, aVL, v5 and V6. ST elevations seen on aVR. 09/26: EKG showed ST elevations in leads v3 - v6. Patient was taken to CCL for repeat PCI and an additional LAD stent was placed. Received orphine and nitro SL x1 tab during episode of chest pain + Heparin 7000 U x1 given for possible stent thrombosis 09/27: completed Eptifibatide gtt at 12:30am. Ambulating comfortably. Received Lasix 120mg on 09/25 + 40mg x1 on 09/26 Rx: - Post CCL patient was brought to ICU for continued monitoring - Cardiology following, appreciate recommendations - On DAPT with ASA + Brillinta BID - Will keep K >4 and Mg >2 - Will give additional 20mg lasix once BP allows, x1 midodrine 10mg ordered to fagot heater helper MAP. Marijuana use UTox : positive for marijuana DDx: Iatrogenic positive results on UTox for benzo, opiates, methamphetamine (beta elba) Rx: - Nicotine patch qD - senior manager creative services consult before DC for counseling PULM Acute respiratory failure, hypoxic Dry cough 2/2 chronic smoking Dx: In the ED, oxygen saturations dropped to 92% 5 pack years of smoking. Endorses intermittent episodes of cough spells Rx: - Continue oxygen supplementation PRN - Will get breathing treatments if needed, no audible wheezing at this time - Guaifenesin/DM ordered GI/Hep No active problems. RENAL No active problems. HEME/ONC Normocytic Anemia Dx: Hb 12.5 --> 14 , MCV 90s - Currently asymptomatic. Denies generalized weakness or pica - Iron panel: low ion stores. Will hold off on IV iron as anemia seems to have resolved. Rx: - Started daily B12/FA supplements - Will monitor closely to improve post PCI rehabilitation Leukocytosis Dx: WBC 9 --> 14.1 Rx: - Likely due to acute PCI - Will monitor closely with daily CBC ENDO Hypercholesterolemia Lipid panel : TG 177 and cholesterol 213 Rx: - Atorvastatin 80mg HS ID No active problems. MSK/DERM No active problems. ICU Health maintenance: Dispo: Admit to ICU for post PCI x2 care. Patient to be downgraded after diursesis Diet: Cardiac diet DVT ppx: SCDs GI ppx: Nil IV lines: 2 pIV Central line: No Arterial line: No Krishna: No Code status: FULL CODE Plan of care discussed with place change roof bolter Dr De La Vega and PGY3 Dr Crandall, - Salomón Khoury M.D. PGY2 Disclaimer: Minor errors in sprinkler fitter may be present as this note was dictated using voice recognition software.
[2024-09-27] MEDS: FUROSEMIDE INJ 10 MG/ML VIAL 2 ML 20 MG IVP (11:27)
[2024-09-27] MEDS: MIDODRINE 5 MG TABLET PO ×2 (15:00→21:30)
--- NOTE | 2024-09-27 17:30 | ESPR_ITS ---
<Statement entered by Jamin Herman MD - 10/06/24 15:03> I reviewed above note and agree with findings and plans. I have also personally examined the patient with medicine team and went over assessment and plan with medical team including pharmacy graduate intern and resident physician. Documentation for date of: 09/27/24 Subjective Subjective Interval history: Patient seen and examined at bedside. Patient downgraded from ICU, patient is on DAPT status post PCI, Patient underwent stent placement x 2 in the [facility] on 2 different occasions. Currently patient denies any chest pain, is hemodynamically stable, MAP more than 65. Cardiology is following. Will resume care of the patient. Exam Vital Signs Temp Pulse Resp BP Pulse Ox O2 Del Method O2 Flow Rate 99.0 F 83 18 96/52 L 97 Room Air 2 09/27/24 16:00 09/27/24 16:30 09/27/24 16:30 09/27/24 16:30 09/27/24 16:30 09/27/24 16:00 09/27/24 12:00 FiO2 32 09/25/24 22:00 Narrative Exam Constitutional: Alert, oriented x3 and comfortable on 2L of oxygen via NC, sats 94-95% HEENT: Vision grossly intact. Patent nares. Trachea midline. Respiratory: Chest normal on inspection and clear to auscultation bilaterally. Cardiovascular: S1 and S2 audible, RRR. No murmurs or carotid bruit. No gross JVD. Abdominal: Soft and BS + ; non tender to palpation in all quadrants. Genitourinary: No bladder tenderness, no flank pain. Normal to palpation. Musculoskeletal: Extremities tone within normal limits. RT LE edema 2/2 black spider bite - resolving Neurological: CN II - XII grossly intact. Extremity motor and sensation grossly intact. Skin: Warm, dry and intact. No apparent lesions. Psychiatric: Patient has a good affect, is cooperative. Objective Labs 09/27/24 04:42 09/27/24 04:42 Labs: Laboratory Results - last 24 hr 09/27/24 04:42 WBC 13.5 H RBC 4.48 L Hgb 14.3 Hct 40.3 L MCV 90 MCH 31.9 MCHC 35.5 RDW Std Deviation 42.3 Plt Count 242 D Neut % (Auto) 80 Lymph % (Auto) 11 Gladwin % (Auto) 9 Eos % (Auto) 0 Baso % (Auto) 0 Neut # (Auto) 10.7 H Lymph # (Auto) 1.5 Gladwin # (Auto) 1.2 H Eos # (Auto) 0.1 Baso # (Auto) 0.0 Immature Gran # (Auto) 0.07 H Absolute Nucleated RBC 0.00 Immature Gran % 1 H Nucleated RBC % 0 Sodium 139 Potassium 3.6 D Chloride 99 Carbon Dioxide 26.9 Anion Gap 13 BUN 18 Creatinine 0.9 Estim Creat Clear Calc 93.7 eGFR > 60 BUN/Creatinine Ratio 20 Glucose 93 Calculated Osmolality 279 Calcium 8.7 Corrected Calcium 9.0 Phosphorus 2.4 Magnesium 1.6 Albumin 3.6 Quality Measures Quality Measures none Assessment & Plan Assessment Current Active Medications: Generic Name Dose Route Start Last Admin Trade Name Freq PRN Reason Stop Dose Admin Acetaminophen 1,000 mg 09/25/24 15:46 09/26/24 19:20 Acetaminophen 500 Mg Tablet PO 10/25/24 15:45 1,000 mg Q6HR PRN Administration Fever >99.9 Aspirin 81 mg 09/26/24 09:00 09/27/24 08:00 Aspirin Ec 81 Mg Tabec PO 10/26/24 08:59 81 mg QDAY NEMO Administration Atorvastatin Calcium 80 mg 09/26/24 21:00 09/26/24 20:07 Atorvastatin Calcium 20 Mg Tablet PO 10/26/24 20:59 80 mg HS NEMO Administration Benzocaine 1 lozenge 09/26/24 08:41 09/26/24 08:54 Benzocaine/Menthol 1 Lozenge PO 10/26/24 08:40 1 lozenge Q4HR PRN Administration SORE THROAT Norepinephrine/Dextrose 8 mg in 250 mls @ 7.416 mls/hr 09/25/24 11:06 09/25/24 17:53 Levophed In D5w 8mg/250ml IV 10/25/24 11:05 0 mcg/kg/min .Q24H PRN 0 mls/hr PER PROTOCOL Titration Protocol 0.05 MCG/KG/MIN Midodrine 5 mg 09/27/24 14:00 09/27/24 15:00 Midodrine 5 Mg Tablet PO 10/27/24 13:59 5 mg TID NEMO Administration Morphine Sulfate 2 mg 09/25/24 11:02 09/26/24 11:02 Morphine Sulf Inj 10 Mg/Ml Vial IVP 09/30/24 11:01 2 mg Q2H PRN Administration PAIN Protocol Nicotine 7 mg 09/26/24 07:00 09/27/24 08:00 Nicotine Patch 7 Mg/24 Hr Patch.Td24 TOP 10/26/24 06:59 7 mg QDAY NEMO Administration Nitroglycerin 0.4 mg 09/25/24 09:06 09/26/24 11:34 Nitroglycerin 0.4 Mg Subl Btl #25 SL 0.4 mg Q5M PRN Administration CHEST PAIN Ondansetron HCl 4 mg 09/25/24 18:53 09/25/24 19:05 Ondansetron Inj 2 Mg/Ml Inj 2 Ml IVP 10/25/24 18:52 4 mg Q6HR PRN Administration NAUSEA OR VOMITING Protocol Pantoprazole Sodium 40 mg 09/27/24 08:05 09/27/24 08:06 Pantoprazole Inj 40 Mg Vial IVP 10/27/24 08:04 40 mg QDAY NEMO Administration Ticagrelor 90 mg 09/25/24 21:00 09/27/24 08:00 Ticagrelor 90 Mg Tablet PO 10/25/24 20:59 90 mg BID NEMO Administration Vitamin B Complex/Vit C/Folic Acid 1 tab 09/25/24 16:00 09/27/24 08:00 Vit B12/Vit C/Fa (Nephrovite) Tablet PO 10/25/24 15:59 1 tab QDAY NEMO Administration Plan Summary: Mr Ac is a 53-year-old male with no significant past medical history presents to the ED on 09/25 with acute onset chest pain. Patient was admitted to the hospital for management of STEMI, status post cardiac catheterization and stent placement, was initially admitted to ICU for further management, downgraded to telemetry 09/27/24 #ST elevation myocardial infarction #Status post PCI, repeat PCI 09/25 and 09/26 Patient presented to the ED with acute chest pain, 12/27, began around 8 AM when unloading wood from truck and progressively got worse. Pain is severe aching in nature, localized to left side of chest without radiation accompanied with nausea and sweating. Labs on presentation showed troponin 0.94, ED, vitals showed acute drop in BP 70/50s and tachycardia 110/120s bpm, oxygen saturations dropped to 92%. EKG showed ST changes, depressions in leads I, aVL, v5 and V6. ST elevations seen on aVR. Patient was taken to cardiac label machine operator for acute intervention. Post CCL patient was brought to ICU for further monitoring. Plan: -Cardiology following, appreciate recommendations -On DAPT with ASA and Brillinta BID -Will keep K >4 and Mg >2 - Continue midodrine 5 mg p.o. 3 times daily #Acute hypoxic respiratory failure #Heart failure with reduced ejection fraction, EF 30% #Pulmonary edema Patient does have pulmonary edema, suspected in setting of cardiogenic shock, chest x-ray today does show bilateral pneumonia, patient was given Lasix in the ICU. Currently not on any Lasix and is saturating well on 2 L nasal cannula. Will continue to titrate oxygen to maintain SpO2 more than 92. Does have 5-year pack history of smoking. ECHO 09/25: Evidence of acute anteroapical lateral myocardial infarction ejection fraction 30%. Right atrium is normal. Right ventricular size and function normal. Mitral valve thickening mild mitral regurgitation. - Patient did receive IV Lasix, will hold off for now, per cardiology - Cardiology consulted, appreciate recommendation - Introduce GDMT as blood pressure tolerates, close follow-up outpatient. - Benzocaine lozenges as needed for cough #Normocytic anemia #Leukocytosis Hb 12.5 --> 14 , MCV 90s - Currently asymptomatic. Denies generalized weakness or pica - Iron panel: low ion stores. - Follow CBC in a.m. #Hypercholesterolemia Lipid panel : TG 177 and cholesterol 213 Plan: - Atorvastatin 80mg HS #Substance use #Active smoker - services host referral - Nicotine patch as needed - Smoking cessation education provided #Cardiogenic shock, resolved DVT prophylaxis: None GI prophylaxis: Not indicated Diet: Cardiac Lines: Peripheral IV Code status: Full Code Case discussed with Attending Dr. Herman. Bryant Fitzpatrick PGY1 Disclaimer: This note was dictated by speech recognition. Minor errors in associate director finance may be present due to voice recognition software.
[2024-09-27] MEDS: DOCUSATE SOD LIQD 100 MG/10 ML UDC PO (21:29)
[2024-09-27] MEDS: ATORVASTATIN CALCIUM 20 MG TABLET 80 MG PO (21:29)
[2024-09-28] VITALS (32 sets, daily range): BP systolic 87–114; BP diastolic 55–72; PULSE 68–89; RESP 7–31; TEMP 36.2–37.3; O2SAT 94–100; BMI 27.4
--- NOTE | 2024-09-28 02:44 | ESPR_ITS ---
RE: PIPO GOLDEN : 1970 DATE OF SERVICE: 09/27/2024 SUBJECTIVE: A 53-year-old male admitted to the hospital with severe chest pain, was found to have acute myocardial infarction. Left main artery 100% occluded, underwent successful percutaneous coronary angioplasty and stent placement initially on 09/25/2024 and 09/26/2024, left anterior descending occlusion, severe stenosis with thrombus, underwent stent placement as well, placed on Integrilin drip. was taken off, doing fairly well. Platelet count remained stable at 240,000. He has no shortness of breath or chest pain today. Blood pressure is still on the softer side, not able to tolerate beta-blockers or PALOMA inhibitors. OBJECTIVE: General: Not having any chest pain or shortness of breath. Vital Signs: Blood pressure is 88/58, mean pressure is 70. Respirations 24. Temperature is normal. HEENT: Head is atraumatic. Neck: Supple. No JVD. Chest: Symmetrical. Lungs: Clear. Heart: Heart sounds regular. No gallops. Abdomen: Thin and soft. Extremities: No edema. IMPRESSION: 1. Acute myocardial infarction post ST-elevation myocardial infarction to the left main occlusion. 2. Congestive heart failure, well compensated due to acute systolic heart failure due to myocardial infarction, cardiogenic shock, improving. 3. Hypercholesterolemia. RECOMMENDATIONS: 1. Continue medical management. 2. We will transfer to telemetry if he remains stable. 3. Continue aspirin and Brilinta in combination with atorvastatin. 4. Unable to tolerate any beta-blockers now. 5. Also given midodrine 5 mg t.i.d. because of low blood pressure. Condition is stable, but critical. Prognosis is fair. DT: 23:36:19 TT: 00:41:00 Ref: [id number] - TID: [id number]
[2024-09-28 05:16] LABS: Basophils % (Auto) 0 % (0-2.5); Eosinophils # (Auto) 0.1 Thou/mm3 (0.0-0.5); Eosinophils % (Auto) 1 % (0-10); Hematocrit 36.6 % (41.0-53.0); Hemoglobin 12.8 g/dL (13.5-16.0); Immature Granulocytes % (Auto) 1 % (0-0); Immature Granulocytes Auto 0.04 Thou/mm3 (0.00-0.00); Lymphocytes # (Auto) 1.6 Thou/mm3 (1.0-4.8); Lymphocytes % (Auto) 18 % (10-50); Mean Corpuscular Hemoglobin 31.3 pg (25.0-35.0); Mean Corpuscular Volume 90 fL (80-100); Monocytes # (Auto) 0.7 Thou/mm3 (0.0-0.8); Monocytes % (Auto) 7 % (0-12); Neutrophils # (Auto) 6.5 Thou/mm3 (1.8-7.7); Neutrophils % (Auto) 73 % (37-80); Nucleated Red Blood Cell % 0 /100 WBC (0); Platelet Count 247 Thou/mm3 (140-440); RDW Standard Deviation 41.7 fL (35.1-43.9); Red Blood Count 4.09 Miln/mm3 (4.50-5.90); White Blood Count 8.9 Thou/mm3 (3.8-10.6)
[2024-09-28 05:39] LABS: Albumin, Serum 3.4 gm/dL (3.5-5.0); Anion Gap 11 (7-16); BUN/Creatinine Ratio 21 Ratio (12-20); Blood Urea Nitrogen 19 mg/dL (9-23); Calcium 8.2 mg/dL (8.3-10.6); Calcium (Corrected) 8.7 mg/dL (8.5-10.1); Carbon Dioxide 26.4 mMol/L (20.0-31.0); Chloride 103 mMol/L (98-107); Creatinine (Component) 0.9 mg/dL (0.6-1.3); Estimated Creatinine Clearance 93.7 mL/min (>60); Glucose 145 mg/dL (74-106); Magnesium 1.9 mg/dL (1.6-2.6); Osmolality,Calculated 284 (275-295); Phosphorous 2.2 mg/dL (2.4-5.1); Potassium 3.8 mMol/L (3.4-5.1); Sodium 140 mMol/L (136-145); eGFR > 60 See Note
[2024-09-28] MEDS: MIDODRINE 5 MG TABLET PO ×3 (06:26→21:33)
[2024-09-28] MEDS: TICAGRELOR 90 MG TABLET PO ×2 (08:31→20:28)
[2024-09-28] MEDS: PANTOPRAZOLE INJ 40 MG VIAL IVP (08:31)
[2024-09-28] MEDS: POTASSIUM CHLORIDE 20 mEq TABCR 40 MEQ PO (08:31)
[2024-09-28] MEDS: VIT B12/Vit C/FA (Nephrovite) TABLET 1 TAB PO (08:31)
[2024-09-28] MEDS: ASPIRIN EC 81 MG TABEC PO (08:31)
[2024-09-28] MEDS: Magnesium Sulfate 2 GM Ivpb 2 GM/50 ML BAG IV (08:31)
[2024-09-28] MEDS: NICOTINE PATCH 7 MG/24 HR PATCH.TD24 TOP (08:32)
--- NOTE | 2024-09-28 13:16 | ESPR_ITS ---
<Statement entered by Jamin Herman MD - 10/10/24 08:53> I reviewed above note and agree with findings and plans. I have also personally examined the patient with medicine team and went over assessment and plan with medical team including data analysis intern and resident physician. Documentation for date of: 09/28/24 Subjective Subjective Interval history: Patient seen and examined at bedside. Patient has no complaints of chest pain, reports he is ambulating well. Referred to physical therapy. Will monitor for 24 hours, cardiology is monitoring. Patient is stable anticipate discharge in the next 24 hours. Exam Vital Signs Temp Pulse Resp BP Pulse Ox O2 Del Method O2 Flow Rate 98.4 F 85 19 87/60 L 99 Room Air 2 09/28/24 08:01 09/28/24 12:00 09/28/24 08:01 09/28/24 08:01 09/28/24 08:01 09/28/24 08:01 09/28/24 04:00 FiO2 32 09/25/24 22:00 Narrative Exam Constitutional: Alert, oriented x3 and comfortable on room air HEENT: Vision grossly intact. Patent nares. Trachea midline. Respiratory: Chest normal on inspection and clear to auscultation bilaterally. Cardiovascular: S1 and S2 audible, RRR. No murmurs or carotid bruit. No gross JVD. Abdominal: Soft and BS + ; non tender to palpation in all quadrants. Genitourinary: No bladder tenderness, no flank pain. Normal to palpation. Musculoskeletal: Extremities tone within normal limits. No edema noted bilateral lower extremities. Neurological: CN II - XII grossly intact. Extremity motor and sensation grossly intact. Skin: Warm, dry and intact. No apparent lesions. Psychiatric: Patient has a good affect, is cooperative. Objective Labs 09/28/24 04:40 09/28/24 04:40 Labs: Laboratory Results - last 24 hr 09/28/24 04:40 WBC 8.9 RBC 4.09 L Hgb 12.8 L Hct 36.6 L MCV 90 MCH 31.3 MCHC 35.0 RDW Std Deviation 41.7 Plt Count 247 Neut % (Auto) 73 Lymph % (Auto) 18 Harper % (Auto) 7 Eos % (Auto) 1 Baso % (Auto) 0 Neut # (Auto) 6.5 Lymph # (Auto) 1.6 Harper # (Auto) 0.7 Eos # (Auto) 0.1 Baso # (Auto) 0.0 Immature Gran # (Auto) 0.04 H Absolute Nucleated RBC 0.00 Immature Gran % 1 H Nucleated RBC % 0 Sodium 140 Potassium 3.8 Chloride 103 Carbon Dioxide 26.4 Anion Gap 11 BUN 19 Creatinine 0.9 Estim Creat Clear Calc 93.7 eGFR > 60 BUN/Creatinine Ratio 21 H Glucose 145 H D Calculated Osmolality 284 Calcium 8.2 L Corrected Calcium 8.7 Phosphorus 2.2 L Magnesium 1.9 Albumin 3.4 L Quality Measures Quality Measures none Assessment & Plan Assessment Current Active Medications: Generic Name Dose Route Start Last Admin Trade Name Freq PRN Reason Stop Dose Admin Acetaminophen 1,000 mg 09/25/24 15:46 09/26/24 19:20 Acetaminophen 500 Mg Tablet PO 10/25/24 15:45 1,000 mg Q6HR PRN Administration Fever >99.9 Aspirin 81 mg 09/26/24 09:00 09/28/24 08:31 Aspirin Ec 81 Mg Tabec PO 10/26/24 08:59 81 mg QDAY NEMO Administration Atorvastatin Calcium 80 mg 09/26/24 21:00 09/27/24 21:29 Atorvastatin Calcium 20 Mg Tablet PO 10/26/24 20:59 80 mg HS NEMO Administration Benzocaine 1 lozenge 09/26/24 08:41 09/26/24 08:54 Benzocaine/Menthol 1 Lozenge PO 10/26/24 08:40 1 lozenge Q4HR PRN Administration SORE THROAT Midodrine 5 mg 09/27/24 14:00 09/28/24 06:26 Midodrine 5 Mg Tablet PO 10/27/24 13:59 5 mg TID NEMO Administration Nicotine 7 mg 09/26/24 07:00 09/28/24 08:32 Nicotine Patch 7 Mg/24 Hr Patch.Td24 TOP 10/26/24 06:59 7 mg QDAY NEMO Administration Ondansetron HCl 4 mg 09/25/24 18:53 09/25/24 19:05 Ondansetron Inj 2 Mg/Ml Inj 2 Ml IVP 10/25/24 18:52 4 mg Q6HR PRN Administration NAUSEA OR VOMITING Protocol Pantoprazole Sodium 40 mg 09/27/24 08:05 09/28/24 08:31 Pantoprazole Inj 40 Mg Vial IVP 10/27/24 08:04 40 mg QDAY NEMO Administration Ticagrelor 90 mg 09/25/24 21:00 09/28/24 08:31 Ticagrelor 90 Mg Tablet PO 10/25/24 20:59 90 mg BID NEMO Administration Vitamin B Complex/Vit C/Folic Acid 1 tab 09/25/24 16:00 09/28/24 08:31 Vit B12/Vit C/Fa (Nephrovite) Tablet PO 10/25/24 15:59 1 tab QDAY NEMO Administration Plan Summary: Mr Ac is a 53-year-old male with no significant past medical history presents to the ED on 09/25 with acute onset chest pain. Patient was admitted to the hospital for management of STEMI, status post cardiac catheterization and stent placement, was initially admitted to ICU for further management, downgraded to telemetry 09/27/24 #ST elevation myocardial infarction #Status post PCI, repeat PCI 09/25 and 09/26 Patient presented to the ED with acute chest pain, 12/27, began around 8 AM when unloading wood from truck and progressively got worse. Pain is severe aching in nature, localized to left side of chest without radiation accompanied with nausea and sweating. Labs on presentation showed troponin 0.94, ED, vitals showed acute drop in BP 70/50s and tachycardia 110/120s bpm, oxygen saturations dropped to 92%. EKG showed ST changes, depressions in leads I, aVL, v5 and V6. ST elevations seen on aVR. Patient was taken to cardiac bobcat driver/labor for acute intervention. Post CCL patient was brought to ICU for further monitoring. Plan: -Cardiology following, appreciate recommendations -On DAPT with ASA and Brillinta BID -Will keep K >4 and Mg >2 -Continue midodrine 5 mg p.o. 3 times daily #Acute hypoxic respiratory failure #Heart failure with reduced ejection fraction, EF 30% #Pulmonary edema Patient does have pulmonary edema, suspected in setting of cardiogenic shock, chest x-ray today does show bilateral pneumonia, patient was given Lasix in the ICU. Currently not on any Lasix and is saturating well on 2 L nasal cannula. Will continue to titrate oxygen to maintain SpO2 more than 92. Does have 5-year pack history of smoking. ECHO 09/25: Evidence of acute anteroapical lateral myocardial infarction ejection fraction 30%. Right atrium is normal. Right ventricular size and function normal. Mitral valve thickening mild mitral regurgitation. - Patient did receive IV Lasix, will hold off for now, per cardiology - Cardiology consulted, appreciate recommendation - Introduce GDMT as blood pressure tolerates, close follow-up outpatient. - Benzocaine lozenges as needed for cough #Normocytic anemia, iron deficiency anemia #Leukocytosis Hb 12.5 --> 14 , MCV 90s - Currently asymptomatic. Denies generalized weakness or pica - Iron panel: low ion stores. - Follow CBC in a.m. 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 - consulting services project manager referral - Nicotine patch as needed - Smoking cessation education provided #Cardiogenic shock, resolved DVT prophylaxis: None GI prophylaxis: Not indicated Diet: Cardiac Lines: Peripheral IV Code status: Full Code Case discussed with Attending Dr. Herman. Bryant Fitzpatrick PGY1 Disclaimer: This note was dictated by speech recognition. Minor errors in platform supervisor may be present due to voice recognition software.
--- NOTE | 2024-09-28 14:50 | PC.SS ---
Update: Patient has been downgraded from ICU. Dr. Lerma consulting. PT evaluation is pending. Possible d/c home tomorrow.
--- NOTE | 2024-09-28 15:39 | PC.PT ---
PT eval only. Patient was xI with bed mobility, transfers, and ambulation. Patient is safe to ambulate to the bathroom and in the halls with no AD or staff assist. RN made aware.
[2024-09-28] MEDS: ATORVASTATIN CALCIUM 20 MG TABLET 80 MG PO (20:27)
--- NOTE | 2024-09-28 22:19 | ESPR_ITS ---
RE: RAUL GOLDEN : 1970 DATE OF SERVICE: 09/28/2024 SUBJECTIVE: Raul Lockett is a 53-year-old unfortunate male who had acute massive ST elevation myocardial infarction, left main, occlusion proximally, underwent successful complex PCI and stent placement, excellent result. The next day, the patient had to go back because of also occluded LAD, stent was placed, now feeling better. No shortness of breath or chest pain. No heart failure symptoms. OBJECTIVE: Vital Signs: Blood pressure was on the low side, but now back up to 104/70, pulse . Neck: Supple. No JVD. Lungs: Decreased breath sounds. No rales or rhonchi. Heart: S1, S2 regular. Abdomen: Thin and soft. Extremities: No edema. IMPRESSION: 1. Status post acute ST segment elevation myocardial infarction with left main artery occlusion and left anterior descending artery stent placement, successful. 2. Hypercholesterolemia. RECOMMENDATIONS: The patient will be kept an additional day to ambulate him. Tomorrow, he can be discharged home on aspirin and Brilinta for now and a statin, but no beta blockers for now since heart rate and blood pressure are not high. DT: 21:44:55 TT: 22:04:00 Ref: [id number] - TID: [id number]
[2024-09-29] VITALS (7 sets, daily range): BP systolic 98–108; BP diastolic 66–68; PULSE 74–88; RESP 15–95; TEMP 36.2–36.6; O2SAT 92–96
[2024-09-29] MEDS: MIDODRINE 5 MG TABLET PO (05:07)
[2024-09-29 05:53] LABS: Basophils % (Auto) 0 % (0-2.5); Eosinophils # (Auto) 0.2 Thou/mm3 (0.0-0.5); Eosinophils % (Auto) 2 % (0-10); Hematocrit 40.9 % (41.0-53.0); Hemoglobin 14.2 g/dL (13.5-16.0); Immature Granulocytes % (Auto) 0 % (0-0); Immature Granulocytes Auto 0.03 Thou/mm3 (0.00-0.00); Lymphocytes # (Auto) 1.4 Thou/mm3 (1.0-4.8); Lymphocytes % (Auto) 15 % (10-50); Mean Corpuscular HGB Conc 34.7 g/dl (31.0-37.0); Mean Corpuscular Hemoglobin 32.3 pg (25.0-35.0); Mean Corpuscular Volume 93 fL (80-100); Monocytes # (Auto) 0.7 Thou/mm3 (0.0-0.8); Monocytes % (Auto) 7 % (0-12); Neutrophils # (Auto) 7.5 Thou/mm3 (1.8-7.7); Neutrophils % (Auto) 76 % (37-80); Nucleated Red Blood Cell % 0 /100 WBC (0); Platelet Count 312 Thou/mm3 (140-440); RDW Standard Deviation 42.7 fL (35.1-43.9); White Blood Count 9.8 Thou/mm3 (3.8-10.6)
[2024-09-29 06:38] LABS: Albumin, Serum 3.9 gm/dL (3.5-5.0); Anion Gap 11 (7-16); BUN/Creatinine Ratio 19 Ratio (12-20); Blood Urea Nitrogen 17 mg/dL (9-23); Calcium 9.2 mg/dL (8.3-10.6); Calcium (Corrected) 9.3 mg/dL (8.5-10.1); Carbon Dioxide 26.2 mMol/L (20.0-31.0); Chloride 104 mMol/L (98-107); Creatinine (Component) 0.9 mg/dL (0.6-1.3); Estimated Creatinine Clearance 94.4 mL/min (>60); Glucose 104 mg/dL (74-106); Magnesium 1.8 mg/dL (1.6-2.6); Osmolality,Calculated 282 (275-295); Phosphorous 3.4 mg/dL (2.4-5.1); Potassium 4.5 mMol/L (3.4-5.1); Sodium 141 mMol/L (136-145); eGFR > 60 See Note
[2024-09-29] MEDS: NICOTINE PATCH 7 MG/24 HR PATCH.TD24 TOP (08:43)
[2024-09-29] MEDS: VIT B12/Vit C/FA (Nephrovite) TABLET 1 TAB PO (08:43)
[2024-09-29] MEDS: TICAGRELOR 90 MG TABLET PO (08:43)
[2024-09-29] MEDS: ASPIRIN EC 81 MG TABEC PO (08:43)
--- NOTE | 2024-09-29 11:07 | PD.RESDS ---
Planned Discharge Date 09/29/24 DS: Providers Provider Date of admission: 09/25/24 11:02 Primary care physician: Physician No Primary/Family Admitting Provider: Chelle De La Vega MD Attending Provider on Admission: Chelle De La Vega MD Consults: 09/25/24 09:10 Consult to Cardiology Stat Comment: Consulting Provider: Edgar Lerma 09/28/24 13:13 Referral Physical Therapy Routine Comment: Physician Instructions: Attending Provider on DC: George Juarez MD Discharging Provider: George Juarez MD Anticipated date of discharge: 09/29/24 DS: Diagnosis Problem List Completed Was Problem List Reviewed/Reconciled?: Yes Hospital Course Hospital Course Hospital course: Hospital course: Mr. Woodward is a 53-year-old male with no significant past medical history who presented to [facility] emergency department on 09/25 with a chief complaint of acute onset chest pain. Patient reported that his chest pain is 9/10, started early in the morning, started while unloading wood from truck and progressively got worse. In the ED EKG showed ST elevation in aVR, suspicion of left main occlusion with elevation of troponin 0.94. Patient in ED was hypotensive and tachycardic, started on Levophed and nitro drip patient was taken to the cardiac [facility] for intervention, had stent placement in distal left main coronary artery was taken to intensive care unit for observation, patient was Levophed drip, was started on DAPT and eptifibatide gtt., eventually patient had another episode of chest pain around 11 AM on 09/26, EKG showed ST elevation in lead V3?V6, patient was given morphine and nitro sublingual x 1, continued to complain of chest pain, was given IV heparin for stent thrombosis and was taken to cardiac [facility] on 09/26, patient had stent placement in LAD. Patient was then taken to intensive care unit for observation, was started on midodrine for blood pressure support was continued on DAPT with aspirin and Brilinta, patient was weaned off of supplemental oxygen, was given IV Lasix with improvement of pulmonary edema. Unable to start GDMT due to patient's blood pressure. Patient was eventually downgraded telemetry, with the progression of hospital course patient had no new complaints, chest pain had resolved, was seen by physical therapy, patient has with ambulation. Eventually patient requested to be discharged home, cardiology followed the patient throughout the hospitalization course. Further plan is to discharge patient home dual antiplatelet therapy, atorvastatin 80 mg at bedtime, midodrine 5 mg p.o. 3 times daily for hypertension iron tablets and nicotine patches. Patient counseled to abstain from alcohol and drug use. Patient to follow-up outpatient with primary care physician in 1 to 2 weeks, follow-up with cardiology in 1 week. Patient is stable for discharge, patient responded well to hospital treatment. Discharge Diagnosis: #ACS?ST elevation [place] #Status post PCI, left main coronary artery, LAD, 09/25 and 09/26 #Acute hypoxic respiratory failure, resolved #Heart failure with reduced ejection fraction, EF 30% #Pulmonary edema, resolved #Normocytic anemia, iron deficiency anemia #Leukocytosis #Hypercholesterolemia #Substance use #Active smoker #Cardiogenic shock, resolved Case discussed with Attending Dr. Juarez. Bryant Fitzpatrick PGY1 Disclaimer: This note was dictated by speech recognition. Minor errors in electric crane operator may be present due to voice recognition software. Time Spent with Patient Time attestation: Total time spent providing and/or coordinating discharge services: Time spent: Greater than 30 minutes Quality: Stroke Pt Provided Written Stroke Discharge Instructions: No (STROKE S/S) Exam Vital Signs Temp Pulse Resp BP Pulse Ox O2 Del Method O2 Flow Rate 97.2 F 88 20 98/68 92 L Room Air 2 09/29/24 08:00 09/29/24 09:15 09/29/24 09:15 09/29/24 08:00 09/29/24 08:00 09/29/24 08:00 09/28/24 04:00 FiO2 32 09/25/24 22:00 Narrative Exam Constitutional: Alert, oriented x3 and comfortable on room air HEENT: Vision grossly intact. Patent nares. Trachea midline. Respiratory: Chest normal on inspection and clear to auscultation bilaterally. Cardiovascular: S1 and S2 audible, RRR. No murmurs or carotid bruit. No gross JVD. Abdominal: Soft and BS + ; non tender to palpation in all quadrants. Genitourinary: No bladder tenderness, no flank pain. Normal to palpation. Musculoskeletal: Extremities tone within normal limits. No edema noted bilateral lower extremities. Neurological: CN II - XII grossly intact. Extremity motor and sensation grossly intact. Skin: Warm, dry and intact. No apparent lesions. Psychiatric: Patient has a good affect, is cooperative. Discharge Plan Plan Patient Disposition: HOME (Self Care) Patient condition on transfer: Stable Prescriptions/Referrals Prescriptions/Med Rec: New aspirin 81 mg Tablet,Delayed Release (Dr/Ec) 81 mg PO QDAY 30 Days Qty: 30 3RF atorvastatin 80 mg tablet 80 mg PO HS 30 Days Qty: 30 3RF nicotine 7 mg/24 hr Patch 24 Hour 7 mg top QDAY 7 Days Qty: 7 0RF ticagrelor [Brilinta] 90 mg Tablet 90 mg PO BID 30 Days Qty: 60 3RF ferrous sulfate [Iron (ferrous sulfate)] 325 mg (65 mg iron) tablet 325 mg PO Q OTHER DAY 90 Days Qty: 45 0RF (DME) blood pressure monitor [Blood Pressure Kit] Kit See Rx Instructions .Route Qty: 1 0RF Rx Instructions: As directed midodrine 5 mg tablet 5 mg PO TID PRN (Reason: Take if Blood Pressure less 90/60) Qty: 30 0RF Rx Instructions: do not give last dose of day after 6PM or within 4 hrs of bedtime magnesium oxide 400 mg (241.3 mg magnesium) Tablet 400 mg PO QDAY 7 Days Qty: 7 0RF Referrals: No Primary/Family,Physician [Primary Care Provider] - Edgar Lerma MD [Physician] - Bryant Fitzpatrick MD [Resident] - Patient/Caregiver Discharge Instructions Meds to Beds: No Discharge Activity: as per physical therapy and activity as tolerated Other Discharge Activity Instructions:: Continue Dual antiplatelet therapy for 1 year, Aspirin and Brillinta, DO NOT STOP unless told by your Doctor. Continue Midodrine 5mg three times daily as needed for blood pressure support if less than 90/60 keep a log of blood pressure, check blood pressure twice a day. Take atorvastatin daily every night, for managing cholesterol. Take Iron tablets every other day for three months, check iron panel in 3 months. Use nicotine patches for 7 days and STOP SMOKING and DRUG USE. Follow up with cardiology oupatient in 1 week. Follow-up in [facility] in 1 to 2 weeks. Call [phone] to make an appointment Address: [facility], [address], [address], [place], [address] Return to ED if symptoms return or worsen. Contin?e con terapia antiplaquetaria dual favian 1 a?o, aspirina y Brillinta. NO DEJE DE TOMARLO a menos que se lo indique bautista m?dico. Contin?e con Midodrina 5 mg boo veces al d?a seg?n sea necesario para el control de la presi?n arterial; si es celine de 90/60, lleve un registro de bautista presi?n arterial y contr?sophia dos veces al d?a. [place] atorvastatina diariamente todas las noches para controlar el colesterol. [place] tabletas de harsha en d?as alternos favian boo meses y contr?lese el perfil de harsha a los 3 meses. Use parches de nicotina favian 7 d?as y DEJE DE FUMAR y CONSUMIR DROGAS. Realice yenifer osiel de seguimiento con cardiolog?a ambulatoria en yenifer semana. Realice yenifer osiel de seguimiento en la [facility] en yenifer o dos semanas. Llame al [phone] para programar yenifer osiel. Direcci?n: [facility], [address], [address], [place], [address]. Regrese a urgencias si los s?ntomas regresan o empeoran. Other Discharge Diet Instructions: Cardiac, low sodium diet Education Materials: Cardiac Rehab Exercise Program, Heart Attack Meds, Heart Attack Questions, Heart Attack: Leaving the Hospital, Heart Attack: Back at Home, Heart Attack resuming Sex Print Language: Upper Sorbian Stand Alone Forms: Vani Award Info., Patient Portal Info Letter Discharge Order Discharge Orders: Discharge (Routine); Ordered 09/29/24 Ordered By: Bryant Fitzpatrick Quality Discharge Quality Measures VTE prophylaxis MD Attestestation MD Attestation Face to face evaluation was performed by me. I have personally seen and examined the patient. I discussed the assessment and plan with the entire medicine team. I reviewed available medical records, imaging studies, laboratory results. I agree with the above subjective data, objective findings, assessment and plan except as corrected by me or noted below #ACS?ST elevation [place] #Status post PCI, left main coronary artery, LAD, 09/25 and 09/26 #Acute hypoxic respiratory failure, resolved #Heart failure with reduced ejection fraction, EF 30% Stable discharge, aspirin, Brilinta, high intensity statin. Midodrine as needed for low blood pressure patient to follow-up with PCP and cardiology and to start goal-directed medical therapy if blood pressure/heart rate can tolerate. His blood pressure was not high enough for us to start goal-directed medical therapy upon discharge. More than > 30 minutes spent on the encounter
[2024-09-29] MEDS: MAGNESIUM OXIDE 400 MG TABLET PO (11:29)
== END 2024-09-29 12:20 | disposition home or self-care (01) | DRG 174 ==
LOC: SERX 10:05 → SERHOLD 11:11 → S2SX 11:38 → S3SX 09-28 18:57
PROVIDERS: Internal Medicine Cardiovascular Disease; Student in an Organized Health Care Education/Training Program; Admitting Provider Internal Medicine; Emergency Provider Family Medicine; Visit Provider Internal Medicine
DX: I21.09 ST elevation (STEMI) myocardial infarction involving other coronary artery of anterior wall (principal); F17.210 Nicotine dependence, cigarettes, uncomplicated; F12.90 Cannabis use, unspecified, uncomplicated; J96.01 Acute respiratory failure with hypoxia; R57.0 Cardiogenic shock; R05.9 Cough, unspecified; E87.6 Hypokalemia; Z95.2 Presence of prosthetic heart valve; D50.9 Iron deficiency anemia, unspecified; E78.00 Pure hypercholesterolemia, unspecified; E83.42 Hypomagnesemia; I11.0 Hypertensive heart disease with heart failure; I25.10 Atherosclerotic heart disease of native coronary artery without angina pectoris; I50.21 Acute systolic (congestive) heart failure; Z71.6 Tobacco abuse counseling; Z79.02 Long term (current) use of antithrombotics/antiplatelets; Z79.82 Long term (current) use of aspirin; Z79.899 Other long term (current) drug therapy; F15.90 Other stimulant use, unspecified, uncomplicated; D72.829 Elevated white blood cell count, unspecified
CPT/HCPCS: 36415; 71045; 80048; 80053; 80061; 80069; 80307; 83036; 83540; 83550; 83735; 84145; 84484; 85025; 85347; 85610; 85730; 87081; 87502; 87811; 93005; 93225; 93306; 94660; 96374; 96375; 97161; 99152; 99153; 99291; A4649; C1725; C1760; C1769; C1874; C1887; C1894; J0153; J0171; J0282; J0461; J1171; J1327; J1643; J1644; J1938; J2250; J2270; J2310; J2371; J2405; J2470; J3010; J3475; J3490; J7050; Q9967; A9270; J2305

== ENCOUNTER 2024-10-08 07:57 | Emergency (ER) | payer MEDICAID, SELFPAY ==
[2024-10-08] VITALS (8 sets, daily range): BP systolic 102–124; BP diastolic 68–81; PULSE 68–89; RESP 18–28; TEMP 36.4–36.9; O2SAT 93–99; BMI 25.8
--- NOTE | 2024-10-08 08:36 | PD.EDRME ---
Rapid Medical Screening Exam RME Arrival date/time: 10/08/24 07:57 This is a 53-year-old male that comes in with complaints of chest pain that started last night. Patient was recently discharged from the hospital approximately a week ago after having an acute thrombus biotic occlusion to the mid left anterior descending artery which is a new lesion. Patient underwent successful stent placement to the left anterior descending artery. See Dr. Lerma's note. Patient previously positive for cocaine, marijuana, amphetamines. I have greeted and performed a focused initial assessment of this patient. Initial appropriate labs ordered at this time. A comprehensive ED assessment and evaluation of the patient and analysis of all test and completion of medical decision making process will be conducted by additional ED provider. Chief Complaint: Chest Pain Time Seen by Provider: 10/08/24 08:11 Vital signs: Vital Signs Temperature 97.5 F 10/08/24 08:21 Pulse Rate 68 10/08/24 08:21 Respiratory Rate 18 10/08/24 08:21 Blood Pressure 119/74 10/08/24 08:21 Pulse Oximetry (%) 99 10/08/24 08:21 Oxygen Delivery Method Room Air 10/08/24 08:21
--- NOTE | 2024-10-08 08:37 | EKG_ITS ---
[facility] Test Date: 2024-10-08 Pat Name: PIPO GOLDEN Department: Room: - Gender: Male Bisque Placer: : 1970 Requested By: Steffanie Hutton Order Number: [id number] Reading MD: Steffanie Hutton Measurements Intervals [place] Rate: 84 P: 4 NE: 152 QRS: 16 QRSD: 98 T: 86 QT: 396 QTc: 470 Interpretive Statements SINUS RHYTHM POSSIBLE LATERAL MYOCARDIAL INFARCTION , OF INDETERMINATE AGE [30 ms Q WAVE IN I/aVL/V5/V6] MODERATE T-WAVE ABNORMALITY, CONSIDER ANTERIOR ISCHEMIA [-0.1+ mV T-WAVE IN V3/V4] Compared to ECG 09/28/2024 18:28:25 Myocardial infarct finding now present T-wave abnormality now present Possible ischemia now present First degree AV block no longer present Prolonged QT interval no longer present /store/S0/[id number]/ecg/[id number].pdf
--- NOTE | 2024-10-08 08:37 | XR_ITS ---
Examination: PA lateral chest 2 views Technique: Upright PA lateral chest 2 views Date and time: October 08, 2024 0957 hrs. Comparison September 27, 2024 Indications: Chest pain today. Findings: Minimal prominence of ventricle Moderate vascular congestion. No lobar pneumonia or irish pulmonary edema Impression: Moderate vascular congestion
[2024-10-08 09:24] LABS: Basophils % (Auto) 0 % (0-2.5); Eosinophils # (Auto) 0.2 Thou/mm3 (0.0-0.5); Eosinophils % (Auto) 2 % (0-10); Hematocrit 36.7 % (41.0-53.0); Hemoglobin 12.9 g/dL (13.5-16.0); Immature Granulocytes % (Auto) 0 % (0-0); Immature Granulocytes Auto 0.04 Thou/mm3 (0.00-0.00); Lymphocytes # (Auto) 1.4 Thou/mm3 (1.0-4.8); Lymphocytes % (Auto) 13 % (10-50); Mean Corpuscular HGB Conc 35.1 g/dl (31.0-37.0); Mean Corpuscular Hemoglobin 31.5 pg (25.0-35.0); Mean Corpuscular Volume 90 fL (80-100); Monocytes # (Auto) 0.7 Thou/mm3 (0.0-0.8); Monocytes % (Auto) 6 % (0-12); Neutrophils # (Auto) 8.7 Thou/mm3 (1.8-7.7); Neutrophils % (Auto) 78 % (37-80); Nucleated Red Blood Cell % 0 /100 WBC (0); Platelet Count 442 Thou/mm3 (140-440); RDW Standard Deviation 40.2 fL (35.1-43.9); White Blood Count 11.1 Thou/mm3 (3.8-10.6)
[2024-10-08 09:41] LABS: Alanine Aminotransferase 32 U/L (10-49); Albumin, Serum 4.1 gm/dL (3.5-5.0); Albumin/Globulin Ratio 1.6 (1.2-2.2); Alkaline Phosphatase 46 U/L (46-116); Anion Gap 7 (7-16); Aspartate Amino Transferase 22 U/L (0-34); BUN/Creatinine Ratio 19 Ratio (12-20); Bilirubin,Total 0.5 mg/dL (0.3-1.2); Blood Urea Nitrogen 15 mg/dL (9-23); Calcium 8.7 mg/dL (8.3-10.6); Calcium (Corrected) 8.7 mg/dL (8.5-10.1); Chloride 106 mMol/L (98-107); Creatinine (Component) 0.8 mg/dL (0.6-1.3); Estimated Creatinine Clearance 96.4 mL/min (>60); Globulin 2.5 gm/dL (2.3-3.5); Glucose 95 mg/dL (74-106); Osmolality,Calculated 280 (275-295); Sodium 140 mMol/L (136-145); Total Protein 6.6 gm/dL (5.7-8.2); eGFR > 60 See Note
[2024-10-08 09:43] LABS: Troponin I 0.117 ng/mL (0.0-0.045)
[2024-10-08 09:48] LABS: B-Type Natriuretic Peptide 666 pg/mL (0-100)
--- NOTE | 2024-10-08 10:14 | EDNOTE_ITS ---
ED General RME/HPI General Chief complaint: Chest Pain Stated complaint: CHEST PAIN AND SOB Time Seen by Provider: 10/08/24 08:11 Arrival date/time: 10/08/24 07:57 Limitations: no limitations RME / HPI RME / HPI narrative: 10/08/24 07:57 This is a 53-year-old male that comes in with complaints of chest pain that started last night. Patient was recently discharged from the hospital approximately a week ago after having an acute thrombus biotic occlusion to the mid left anterior descending artery which is a new lesion. Patient underwent successful stent placement to the left anterior descending artery. See Dr. Lerma's note. Patient previously positive for cocaine, marijuana, amphetamines. I have greeted and performed a focused initial assessment of this patient. Initial appropriate labs ordered at this time. A comprehensive ED assessment and evaluation of the patient and analysis of all test and completion of medical decision making process will be conducted by additional ED provider. DR. SEBASTIAN MAIN ED EVALUATION: 53 year old male presents to the Emergency Department with complaints of mild shortness of breath and a dry cough; he also mentions that he has chest pain when he coughs. Onset of symptoms today at 2 AM. No congestion, phlegm, or other symptoms reported at this time. Patient is a chronic tobacco smoker. Reviewed last admission discharge dated 09/29/24, patient admitted for the following: ST elevation [place]. Related Data Previous Rx's ?Medication ?Instructions ?Recorded aspirin 81 mg tablet,delayed 81 mg PO QDAY 30 days #30 tabs 09/29/24 release atorvastatin 80 mg tablet 80 mg PO HS 30 days #30 tabs 09/29/24 blood pressure monitor (Blood #1 ea 09/29/24 Pressure Kit) ferrous sulfate 325 mg (65 mg 325 mg PO Q OTHER DAY 3 months #45 09/29/24 iron) tablet (Iron (ferrous tabs sulfate)) midodrine 5 mg tablet 5 mg PO TID PRN Take if Bloo d 09/29/24 Pressure less 90/60 #30 tabs ticagrelor 90 mg tablet (Brilinta) 90 mg PO BID 30 day s #60 tabs 09/29/24 albuterol sulfate 90 mcg/actuation 2 puff inhalation Q 6H PRN 10/08/24 aerosol inhaler shortness of breath or wheez ing #8.5 grams furosemide 20 mg tablet (Lasix) 20 mg PO QDAY shortnes s of breath 10/08/24 #5 tabs prednisone 20 mg tablet See Taper PO QDAY allergic 0 10/08/24 reaction #18 tabs Allergies Allergy/AdvReac Type Severity Reaction Status Date / Time No Known Allergies Allergy Verified 10/08/24 08:02 Review of Systems Review of Systems Systems Reviewed: All systems reviewed, normal except as documented Past Medical History Social History SMOKING STATUS: Former smoker SUBSTANCE USE: does not use ALCOHOL: Never ED Exam General Limitations: Present no limitations General appearance: Present alert and in no apparent distress Head Head exam: Present atraumatic, normocephalic and normal inspection Eye Eye exam: Present normal appearance, PERRL and EOMI ENT ENT exam: Present normal exam, normal oropharynx and mucous membranes moist Neck Neck exam: Present normal inspection, full ROM and trachea midline Chest Chest inspection: Present normal inspection and symmetric chest wall rise Respiratory Respiratory exam: Present normal lung sounds bilaterally Cardiovascular Cardiovascular exam: Present regular rate, normal rhythm and normal heart sounds Abdominal Exam Abdominal exam: Present soft and normal bowel sounds Extremities Exam Extremities exam: Present normal inspection and full ROM Back Exam Back exam: Present normal inspection and full ROM Neurological Exam Neurological exam: Present alert, oriented X3 and CN II-XII intact Psychiatric Psychiatric exam: Present normal affect and normal mood Skin Skin exam: Present warm, dry, intact and normal color Course Quality Measures none Orders Category Date Time Status EKG (ED ONLY) *Do not use* NOW Care 10/08/24 08:37 Completed EKG (ED Only) Stat Exams 10/08/24 08:37 Draft XR chest 2V Stat Exams 10/08/24 08:37 Completed BNP [B-Type Natriuretic Peptide] Stat Lab 10/08/24 09:05 Completed CBC Stat Lab 10/08/24 09:05 Completed Comprehensive Metabolic Panel Stat Lab 10/08/24 09:05 Completed Troponin I Stat Lab 10/08/24 09:05 Completed Troponin I Stat Lab 10/08/24 11:21 Completed ALBUTEROL RT 3ml [Proventil Rt 3ml] Med 10/08/24 10:23 Discontinued 2.5 mg INH X1 ONE Dexamethasone Inj [Decadron Inj] Med 10/08/24 10:23 Discontinued 6 mg IVP X1 ONE Furosemide Inj [Lasix Inj] Med 10/08/24 12:40 Discontinued 40 mg IVP X1 ONE HYDROcodone*/APAP 5/325 [Mitchells 5/325] Med 10/08/24 11:12 Discontinued 1 tab PO X1 ONE Vital Signs Vital signs: Vital Signs Temperature 97.5 F 10/08/24 08:21 Pulse Rate 68 10/08/24 08:21 Respiratory Rate 18 10/08/24 08:21 Blood Pressure 119/74 10/08/24 08:21 Pulse Oximetry (%) 99 10/08/24 08:21 Oxygen Delivery Method Room Air 10/08/24 08:21 Discharge Plan Plan Patient Disposition: HOME (Self Care) Patient condition on transfer: Stable Prescriptions/Referrals Prescriptions/Med Rec: New furosemide [Lasix] 20 mg tablet 20 mg PO QDAY MDD 1 Qty: 5 0RF albuterol sulfate 90 mcg/actuation HFA aerosol inhaler 2 puff inhalation Q6H MDD 8 puffs PRN (Reason: shortness of breath or wheezing) Qty: 8.5 0RF prednisone 20 mg tablet See Taper PO QDAY MDD 3 Qty: 18 0RF Taper: Prednisone Taper 20 mg DAILY for 9 Days and 0 Hour Rx Instructions: Take 3 Tabs q Day for 3 days then take 2 tabs q Day for 3 days then take 1 tablet q Day for 3 days then D/C No Action aspirin 81 mg Tablet,Delayed Release (Dr/Ec) 81 mg PO QDAY 30 Days Qty: 30 3RF atorvastatin 80 mg tablet 80 mg PO HS 30 Days Qty: 30 3RF ticagrelor [Brilinta] 90 mg Tablet 90 mg PO BID 30 Days Qty: 60 3RF ferrous sulfate [Iron (ferrous sulfate)] 325 mg (65 mg iron) tablet 325 mg PO Q OTHER DAY 90 Days Qty: 45 0RF (DME) blood pressure monitor [Blood Pressure Kit] Kit See Rx Instructions .Route Qty: 1 0RF Rx Instructions: As directed midodrine 5 mg tablet 5 mg PO TID PRN (Reason: Take if Blood Pressure less 90/60) Qty: 30 0RF Rx Instructions: do not give last dose of day after 6PM or within 4 hrs of bedtime Referrals: No Primary/Family,Physician [Primary Care Provider] - In 1 week Problem List Clinical Impression: COPD exacerbation Patient/Caregiver Discharge Instructions Education Materials: ED COPD Flare Additional Instructions: Please follow-up with your primary care physician within a week. Return to the Emergency Department as needed. Brandi un seguimiento con bautista m?dico de cabecera dentro de yenifer semana. Regrese al Departamento de Emergencias seg?n sea necesario. Print Language: Icelandic Stand Alone Forms: Vani Award Info., Patient Portal Info Letter MDM Narrative [facility] hospital course: I, Trishgi Gonzalez, am scribing for and in the presence of Dr. Sebastian. Patient complaining of chest pain and shortness of breath. First troponin was 0.117 and second troponin was 0.111. He had a recent KS so likely elevated from that. Plan to discharge the patient. Clinical Information Provided by patient Medical Records Reviewed [facility] Meds/Rx Considered, not Ordered None Labs/Rad/Tests considered, not Ordered None Chronic Illness/Social Conditions Add or document further as needed: Reviewed last admission discharge dated 09/29/24, patient admitted for the following: ST elevation KS. Patient is a chronic tobacco smoker. EKG EKG Interpretation narrative: My interpretation: EKG performed at 0846 hours, sinus rhythm, rate 84, rule out left lateral KS indeterminate age, SC interval 152 ms, QRS duration 98 ms, QT/QTc 396/437, P-R-T axis 4, 16, 86 Lab Interpretation Labs: see narrative above Imaging Imaging interpretation: see narrative above Radiology reports / interpretation(s): Procedure(s): XR chest 2V Accession Number(s): [id number] cc: Prudencio Rios MD; NO PRIMARY/FAMILY,PHYSICIAN; Steffanie Hutton NP~ Examination: PA lateral chest 2 views Technique: Upright PA lateral chest 2 views Date and time: October 08, 2024 0957 hrs. Comparison September 27, 2024 Indications: Chest pain today. Findings: Minimal prominence of ventricle Moderate vascular congestion. No lobar pneumonia or irish pulmonary edema Impression: Moderate vascular congestion Dictated By: Prudencio Rios MD Medication Administration(s) Medication Administration History Discontinued Medications Hydrocodone Bitart/Acetaminophen (Hydrocodone/Apap 5/325 Tablet) 1 tab PO X1 ONE Stop: 10/08/24 11:13 Last Admin: 10/08/24 11:16 Dose: 1 tab Documented By: VL Albuterol (Albuterol Rt 2.5 Mg/3 Ml Nebu) 2.5 mg INH X1 ONE Stop: 10/08/24 10:24 Last Admin: 10/08/24 10:36 Dose: 2.5 mg Documented By: MW Dexamethasone Sodium Phosphate (Dexamethasone Sod Phos Inj 10 Mg/Ml Vial) 6 mg IVP X1 ONE Stop: 10/08/24 10:24 Last Admin: 10/08/24 10:33 Dose: 6 mg Documented By: VL Furosemide (Furosemide Inj 10 Mg/Ml 4ml Vial) 40 mg IVP X1 ONE Stop: 10/08/24 12:41 Last Admin: 10/08/24 12:48 Dose: 40 mg Documented By: VL Diagnosis Differential diagnosis: COPD exacerbation, KS, atypical chest pain, PE Most likely dx, and/or detailed dx discussion: COPD exacerbation Dispositon Disposition: Discharge Home
[2024-10-08] MEDS: DEXAMETHASONE SOD PHOS INJ 10 MG/ML VIAL 6 MG IVP (10:33)
[2024-10-08] MEDS: ALBUTEROL RT 2.5 MG/3 ML NEBU INH (10:36)
--- NOTE | 2024-10-08 10:55 | PC.NURSE ---
Patient in to ED for cough/ chest pain that started early this morning. Patient has been having cough since yesterday. Patient states he was just discharged from the hospital about a week ago after being admitted for an AR. Patient has been taking all of his current medication that he was discharged with. Patient had follow up with cardiology scheduled for tomorrow. Patient denies any other symptoms. Vitals are stable. Dr. Pino aware of chest pain, per MD patient's chest pain is not cardiac related currently and will receive breathing treatment and we will redraw troponin. Plan of care ongoing.
[2024-10-08] MEDS: HYDROcodone/APAP 5/325 TABLET 1 TAB PO (11:16)
--- NOTE | 2024-10-08 11:20 | PC.NURSE ---
Informed Dr. Pino patient having increased feeling of shortness of breath and chest pain. No further orders received. Patient vitals stable. Patient saturating 96% on room air. Plan of care ongoing
[2024-10-08 11:46] LABS: Troponin I 0.111 ng/mL (0.0-0.045)
--- NOTE | 2024-10-08 12:25 | PC.NURSE ---
Dr. Pino was informed patient was still complaining of shortness of breath and respirations 25. Patient oxygen saturation 95% on room air. Per Dr. Pino patient has just had recent IL and has been discharged on certain medication that would cause troponin to still be elevated. This shortness of breath and chest pain is not cardiac related per MD. Provider plans to discharge patient.
--- NOTE | 2024-10-08 12:29 | PC.NURSE ---
MD Pino aware of BNP and Troponin levels. No further orders.
[2024-10-08] MEDS: FUROSEMIDE INJ 10 MG/ML 4ML VIAL 40 MG IVP (12:48)
== END 2024-10-08 13:30 | disposition home or self-care (01) ==
PROVIDERS: Nurse Practitioner Family; Emergency Provider Family Medicine
DX: J44.1 Chronic obstructive pulmonary disease with (acute) exacerbation (principal); R94.31 Abnormal electrocardiogram [ECG] [EKG]
CPT/HCPCS: 36415; 71046; 80053; 83880; 84484; 85025; 93005; 94640; 96374; 99284; J1100; J1938; A9270

== ENCOUNTER 2024-12-02 23:21 | Inpatient (IN) | payer MEDICAID, SELFPAY ==
[2024-12-02 23:23] VITALS: BMI 27.4
--- NOTE | 2024-12-02 23:30 | PD.EDCHEST ---
ED Chest Pain RME/HPI General Chief Complaint: Chest Pain Stated Complaint: PALPITATIONS CHEST PAIN Time Seen by Provider: 12/02/24 23:34 Arrival date/time: 12/02/24 23:21 RME / HPI RME / HPI narrative: See MDM. Related Data Previous Rx's ?Medication ?Instructions ?Recorded aspirin 81 mg tablet,delayed 81 mg PO QDAY 30 days #30 tabs 09/29/24 release atorvastatin 80 mg tablet 80 mg PO HS 30 days #30 tabs 09/29/24 blood pressure monitor (Blood #1 ea 09/29/24 Pressure Kit) ferrous sulfate 325 mg (65 mg 325 mg PO Q OTHER DAY 3 months #45 09/29/24 iron) tablet (Iron (ferrous tabs sulfate)) midodrine 5 mg tablet 5 mg PO TID PRN Take if Blood 09/29/24 Pressure less 90/60 #30 tabs ticagrelor 90 mg tablet (Brilinta) 90 mg PO BID 30 days #60 tabs 09/29/24 albuterol sulfate 90 mcg/actuation 2 puff inhalation Q6H PRN 10/08/24 aerosol inhaler shortness of breath or wheezing #8.5 grams furosemide 20 mg tablet (Lasix) 20 mg PO QDAY shortness of breath 10/08/24 #5 tabs prednisone 20 mg tablet See Taper PO QDAY allergic 10/08/24 reaction #18 tabs Allergies Allergy/AdvReac Type Severity Reaction Status Date / Time No Known Allergies Allergy Verified 12/02/24 23:29 Review of Systems Review of Systems Systems Reviewed: All systems reviewed, normal except as documented Past Medical History Past Medical History CARDIAC: Positive Cardiac Disorders, Myocardial Infarction, Hypercholesterolemia and Hypotension RESPIRATORY: Positive Chronic Obstructive Pulmonary Disease (COPD) ED Exam Narrative Physical exam: See MDM. Course Course Course Narrative: CXR is ordered for determining the etiology of shortness of breath. Quality Measures none Orders Category Date Time Status COVID-19 Screening Questionnaire NOW Care 12/03/24 01:14 Active Decision to Admit X1 Care 12/03/24 01:14 Active EKG (ED ONLY) *Do not use* NOW Care 12/02/24 23:33 Completed Saline [Insert IV] NOW Care 12/02/24 23:33 Active Straight [In and Out Catheter] X1 Care 12/02/24 23:32 Active EKG (ED Only) Stat Exams 12/02/24 23:33 Draft XR chest 1V portable Stat Exams 12/02/24 23:31 Completed Alcohol, Blood Medical Stat Lab 12/02/24 23:33 Completed BMP [Basic Metabolic Panel] Stat Lab 12/02/24 23:33 Completed BNP [B-Type Natriuretic Peptide] Stat Lab 12/02/24 23:33 Completed CBC Stat Lab 12/02/24 23:33 Completed D-Dimer Stat Lab 12/02/24 23:33 Completed Drug Screen,Urine Stat Lab 12/02/24 23:33 Ordered Free T4 (Free Thyroxine) Stat Lab 12/02/24 23:33 Completed Magnesium Stat Lab 12/02/24 23:33 Completed TSH [Thyroid Stimulating Hormone] Stat Lab 12/02/24 23:33 Completed Troponin I Stat Lab 12/02/24 23:33 Completed UA, C/S IF [Urinalysis, C/S if Indicated] Stat Lab 12/02/24 23:33 Ordered ALPRazoLAM [Xanax] Med 12/02/24 23:42 Discontinued 0.5 mg PO X1 ONE Aspirin Chew Med 12/02/24 23:42 Discontinued 324 mg PO X1 ONE Enoxaparin [Lovenox] Med 12/03/24 01:15 Discontinued 80 mg SC X1 ONE KCL 10% Liq UDC 15 ML Med 12/03/24 01:04 Discontinued 40 meq PO X1 ONE Morphine Inj Med 12/03/24 01:04 Discontinued 2 mg IVP X1 ONE POTASSIUM CHL 10 mEq IVPB [Kcl Ivpb] Med 12/03/24 01:04 Discontinued 10 meq in 100 ml IV X1 Sodium Chloride 0.9% 1000 ml [Ns] 1,000 ml Med 12/02/24 23:34 Discontinued IV 999 mls/hr Vital Signs Vital signs: Vital Signs Temperature 98.7 F 12/02/24 23:39 Pulse Rate 115 H 12/02/24 23:39 Respiratory Rate 20 12/02/24 23:39 Blood Pressure 109/58 L 12/02/24 23:39 Pulse Oximetry (%) 96 12/02/24 23:39 Oxygen Delivery Method Room Air 12/02/24 23:39 Chest Pain MDM Narrative MDM Narrative:: Scribe Attestation: IAisha am scribing for and in the presence of Dr. Bruce. Provider Notation: Although this document has been carefully reviewed, there may still be some phonetic and other typographical errors.? These errors are purely grammatical due to imperfections in the software program and should not be construed in any way to? compromise the substance of the patient's medical care during this visit. This section includes all my notes and documentations, including HPI, PE, and ED course. Pacheco Bruce MD HPI: 53 y/o male with Hx of CO and COPD presents with severe chest pain and palpitations since 12:30 PM, about 10 hours ago. No other complaints. ROS: All negative except as documented in HPI. Physical Exam: General: Alert and oriented. No acute distress when remaining still. Eyes: Conjunctivae and lids clear. ENT: No nasal congestion. Neck: Supple. Heart: Sinus tachycardia noted. Lungs: No respiratory distress. Good air movement. No rhonchi, wheezing, rales. Abdomen: Soft and nontender. Normal bowel sounds. No distension. No rebound or guarding. Back: No CVA tenderness. Skin: Warm and dry. Neuro: Alert and oriented X 3. I reviewed all diagnostic test results: My interpretation of the EKG is: Sinus tachycardia (115 bpm) with nonspecific ST-T changes. My interpretation of the chest x-ray is: NAD. Blood tests for K2.7, troponin 0.117, BNP 393. Urine specimen pending. At this point, diagnoses include: NSTEMI. Treatment here included: IVF, Morphine 2 mg, Aspirin 324 mg, Xanax 0.5 mg, Lovenox 80 mg SC, oral KCl 40 mEq, and IV KCl 10 meq. Patient remained stable. I discussed the case with our hospitalist. About the presentation and exam and diagnostics and treatments here. And need of further care in the hospital. Will accept the patient. Pacheco Bruce MD Patient data External records reviewed:: [facility] previous records (Reviewed prior ED records from 10/08/24. Patient was seen for COPD exacerbation.) Clinical information provided by:: patient Social determinants that could affect healthcare access:: none Patient has the following chronic illnesses:: Myocardial Infarction, Hypercholesterolemia, Hypotension, Chronic Obstructive Pulmonary Disease How is presenting disease/condition affected by chronic disease/condition?: exacerbated by Evaluation data The following diagnostics were reviewed and interpreted by me:: lab results, radiology exam(s) and EKG tracing(s) (My interpretation of the EKG is: Sinus tachycardia (115 bpm) with nonspecific ST-T changes. Pacheco Bruce MD) Lab and/or radiology exams considered but not ordered:: None Interpretation Summary: I reviewed all diagnostic test results: My interpretation of the EKG is: Sinus tachycardia (115 bpm) with nonspecific ST-T changes. My interpretation of the chest x-ray is: NAD. Blood tests for K2.7, troponin 0.117, BNP 393. Medications / Prescriptions Medications or Prescriptions considered but not ordered:: None Medication administrations:: Medication Administration History Acetaminophen (Acetaminophen 325 Mg Tablet) 650 mg PO Q6H PRN PRN Reason: Fever >100.4 Stop: 01/02/25 02:00 Acetaminophen (Acetaminophen 325 Mg Tablet) 650 mg PO Q6H PRN PRN Reason: PAIN SCALE 1-3 (mild Stop: 01/02/25 02:00 Hydrocodone Bitart/Acetaminophen (Hydrocodone/Apap 5/325 Tablet) 1 tab PO Q4HR PRN PRN Reason: PAIN SCALE 4-6 (Moderate Stop: 12/08/24 02:00 Albuterol/Ipratropium (Albuterol/Ipratropium (Duoneb) Rt Wilma 3 Ml Nebu) 3 ml INH Q2HR PRN PRN Reason: SHORTNESS OF BREATH OR WHEEZE Stop: 01/02/25 02:14 Aspirin (Aspirin Ec 81 Mg Tabec) 81 mg PO QDAY NEMO Stop: 01/02/25 08:59 Atorvastatin Calcium (Atorvastatin Calcium 20 Mg Tablet) 80 mg PO HS NEMO Stop: 01/02/25 20:59 Enoxaparin Sodium (Enoxaparin Sod Inj 40 Mg/0.4 Ml Syringe) 40 mg SC QDAY NEMO Stop: 12/17/24 08:59 Ferrous Sulfate (Ferrous Sulf 325 Mg Tablet) 325 mg PO QOD NEMO Stop: 01/02/25 02:29 Magnesium Sulfate (Magnesium Sulfate Ivpb) 4 gm in 50 mls @ 12.5 mls/hr IV X1 ONE Stop: 12/03/24 06:15 Morphine Sulfate (Morphine Sulf Inj 10 Mg/Ml Vial) 2 mg IVP Q2H PRN PRN Reason: PAIN SCALE 7-10 (Severe Stop: 12/08/24 02:00 Nicotine (Nicotine Patch 14 Mg/24 Hr Patch.Td24) 14 mg TOP QDAY [facility] Stop: 01/02/25 08:59 Nitroglycerin (Nitroglycerin 0.4 Mg Subl Btl #25) 0.4 mg SL Q5MIN PRN PRN Reason: CHEST PAIN Ondansetron HCl (Ondansetron Inj 2 Mg/Ml Inj 2 Ml) 4 mg IVP Q6H PRN; Protocol PRN Reason: NAUSEA OR VOMITING Stop: 01/02/25 02:00 Pantoprazole Sodium (Pantoprazole Inj 40 Mg Vial) 40 mg IVP QDAY [facility] Stop: 01/02/25 08:59 Sennosides (Senna Tablet) 1 tab PO QDAY PRN; Protocol PRN Reason: constipation Stop: 01/02/25 02:00 Ticagrelor (Ticagrelor 90 Mg Tablet) 90 mg PO BID [facility] Stop: 01/02/25 08:59 Discontinued Medications Alprazolam (Alprazolam 0.25 Mg Tablet) 0.5 mg PO X1 ONE Stop: 12/02/24 23:43 Last Admin: 12/03/24 00:20 Dose: 0.5 mg Documented By: HELENE Aspirin (Aspirin 81 Mg Chew) 324 mg PO X1 ONE Stop: 12/02/24 23:43 Last Admin: 12/03/24 00:20 Dose: 324 mg Documented By: HELENE Enoxaparin Sodium (Enoxaparin Sod Inj 80 Mg/0.8 Ml Syringe) 80 mg SC X1 ONE Stop: 12/03/24 01:16 Last Admin: 12/03/24 01:56 Dose: 80 mg Documented By: HELENE Sodium Chloride (Ns) 1,000 mls @ 999 mls/hr IV .Q1H1M ONE Stop: 12/03/24 00:34 Last Infusion: 12/03/24 01:20 Dose: Infused Documented By: Admin: 12/03/24 00:19 Dose: 999 mls/hr Documented By: HELENE Potassium Chloride (Kcl Ivpb) 10 meq in 100 mls @ 100 mls/hr IV X1 ONE Stop: 12/03/24 02:03 Last Admin: 12/03/24 02:11 Dose: 100 mls/hr Documented By: HELENE Morphine Sulfate (Morphine Sulf Inj 10 Mg/Ml Vial) 2 mg IVP X1 ONE Stop: 12/03/24 01:05 Last Admin: 12/03/24 01:44 Dose: 2 mg Documented By: HELENE Potassium Chloride (Potassium Chloride 10% 20 Meq/15 Ml Udc) 40 meq PO X1 ONE Stop: 12/03/24 01:05 Last Admin: 12/03/24 01:42 Dose: 40 meq Documented By: HELENE Potassium Chloride (Potassium Chloride 20 Meq Tabcr) 40 meq PO X1 ONE Stop: 12/03/24 02:03 Treatment here included: IVF, Morphine 2 mg, Aspirin 324 mg, Xanax 0.5 mg, Lovenox 80 mg SC, oral KCl 40 mEq, and IV KCl 10 meq. Consultations Consultation(s) initiated? (list below): No Diagnosis Chest Pain Differential Diagnosis: stable angina, unstable angina pectoris, atypical chest pain, st elevation myocardial infarction, costochondritis and chest pain Most likely diagnosis given after review of the tests above:: NSTEMI Admission Indicated Admission indicated?: indicated Explain why admission is indicated or not indicated:: NSTEMI Admission Request Was there a request for admission?: Yes Admission Attestation Admission request attestation: Discussed case with Hospitalist service regarding admission. Discussed patients ED course, exam findings, labs, and radiology results. The Hospitalist [agrees] to accept the patient for admission. Disposition Plan Disposition Plan: Admit Discharge Plan Plan Patient Disposition: Admit Acute Care w/in Hospital Problem List Clinical Impression: Non-ST elevation CO (NSTEMI), Hypokalemia
--- NOTE | 2024-12-02 23:31 | XR_ITS ---
Examination: PA chest single view TECHNIQUE: Upright PA chest single view Date and time: December 02, 2024 11:36 PM INDICATIONS: Shortness of breath chest pain today FINDINGS: Normal heart size Lungs are clear. The osseous structures are intact IMPRESSION: No active disease
--- NOTE | 2024-12-02 23:33 | EKG_ITS ---
[facility] Test Date: 2024-12-02 Pat Name: PIPO GOLDEN Department: Room: - Gender: Male [employer] Worker: : 1970 Requested By: Pacehco Slade Order Number: [id number] Reading MD: Pacheco Slade Measurements Intervals [place] Rate: 115 P: 42 SC: 141 QRS: 41 QRSD: 98 T: 76 QT: 358 QTc: 497 Interpretive Statements SINUS TACHYCARDIA POSSIBLE LEFT ATRIAL ENLARGEMENT [-0.1mV P-WAVE IN V1/V2] INCOMPLETE RIGHT BUNDLE BRANCH BLOCK [90+ ms QRS DURATION, TERMINAL R IN V1/V2, 40+ ms S IN I/aVL/V4/V5/V6] SEPTAL MYOCARDIAL INFARCTION , OF INDETERMINATE AGE [40+ ms Q WAVE IN V1/V2] LATERAL MYOCARDIAL INFARCTION , PROBABLY RECENT [40+ ms Q WAVE AND/OR ST/T ABNORMALITY IN I/aVL/V5/V6] ACUTE [place] Compared to ECG 10/08/2024 08:46:07 Incomplete right bundle-branch block now present Sinus rhythm no longer present T-wave abnormality no longer present Possible ischemia no longer present Myocardial infarct finding still present /store/S0/[id number].pdf
[2024-12-02 23:39] VITALS: BP 109/58; PULSE 115; RESP 20; TEMP 37.1; O2SAT 96
[2024-12-03] VITALS (12 sets, daily range): BP systolic 94–124; BP diastolic 62–86; PULSE 66–95; RESP 12–97; TEMP 35.7–36.5; O2SAT 91–99; BMI 26.9
[2024-12-03] MEDS: SODIUM CHLORIDE 0.9% 1000 ML 1,000 ML 999 ML IV (00:19)
[2024-12-03] MEDS: ASPIRIN 81 MG CHEW 324 MG PO (00:20)
[2024-12-03 00:35] LABS: Basophils # (Auto) 0.0 Thou/mm3 (0.0-0.2); Basophils % (Auto) 0 % (0-2.5); Eosinophils # (Auto) 0.2 Thou/mm3 (0.0-0.5); Eosinophils % (Auto) 2 % (0-10); Hematocrit 33.9 % (41.0-53.0); Hemoglobin 11.7 g/dL (13.5-16.0); Immature Granulocytes Auto 0.02 Thou/mm3 (0.00-0.00); Lymphocytes # (Auto) 1.4 Thou/mm3 (1.0-4.8); Lymphocytes % (Auto) 18 % (10-50); Mean Corpuscular HGB Conc 34.5 g/dl (31.0-37.0); Mean Corpuscular Hemoglobin 32.0 pg (25.0-35.0); Mean Corpuscular Volume 93 fL (80-100); Monocytes # (Auto) 0.5 Thou/mm3 (0.0-0.8); Monocytes % (Auto) 6 % (0-12); Neutrophils # (Auto) 5.9 Thou/mm3 (1.8-7.7); Neutrophils % (Auto) 74 % (37-80); Nucleated Red Blood Cell # 0.00 Thou/mm3 (0.00-0.00); Nucleated Red Blood Cell % 0 /100 WBC (0); Platelet Count 184 Thou/mm3 (140-440); RDW Standard Deviation 43.9 fL (35.1-43.9); Red Blood Count 3.66 Miln/mm3 (4.50-5.90); White Blood Count 8.0 Thou/mm3 (3.8-10.6)
[2024-12-03 00:55] LABS: D-Dimer < 250 ng/mL (<600)
[2024-12-03 00:57] LABS: Alcohol, Blood Medical < 3.0 mg/dL (0-10.0); Anion Gap 11 (7-16); BUN/Creatinine Ratio 10 Ratio (12-20); Blood Urea Nitrogen 11 mg/dL (9-23); Calcium 8.5 mg/dL (8.3-10.6); Carbon Dioxide 23.5 mMol/L (20.0-31.0); Chloride 110 mMol/L (98-107); Creatinine (Component) 1.1 mg/dL (0.6-1.3); Estimated Creatinine Clearance 75.9 mL/min (>60); Free T4 (Free Thyroxine) 1.04 ng/dL (0.89-1.76); Glucose 212 mg/dL (74-106); Magnesium 1.7 mg/dL (1.6-2.6); Osmolality,Calculated 292 (275-295); Sodium 144 mMol/L (136-145); Thyroid Stimulating Hormone 1.87 uIU/mL (0.55-4.78); eGFR > 60 See Note
[2024-12-03 00:58] LABS: Potassium 2.7 mMol/L (3.4-5.1)
[2024-12-03 00:59] LABS: Troponin I 0.117 ng/mL (0.0-0.045)
[2024-12-03 01:04] LABS: B-Type Natriuretic Peptide 393 pg/mL (0-100)
[2024-12-03] MEDS: POTASSIUM CHLORIDE 10% 20 MEQ/15 ML UDC 40 MEQ PO ×2 (01:42→11:12)
[2024-12-03] MEDS: MORPHINE SULF INJ 10 MG/ML VIAL 2 MG IVP (01:44)
[2024-12-03] MEDS: ENOXAPARIN SOD INJ 80 MG/0.8 ML SYRINGE SC (01:56)
--- NOTE | 2024-12-03 02:09 | ESHP_ITS ---
<Statement entered by Dajuan Hyatt MD - 12/04/24 10:01> I have discussed and was present for the essential components of the history, physical examination, diagnosis, and treatment plan with the resident. I agree with the patient's care as documented by the resident and amended herein by me. Dajuan Hyatt MD FACP. Documentation for date of: 12/03/24 HPI History of Present Illness Chief complaint: Chest pain and palpitation History of present illness: 53-year-old male with a past medical history significant for STEMI in September 2024 s/p PCI to distal left main and LAD with reduced EF (30%), COPD, hypercholesterolemia, hypotension on prior midodrine, and anemia, who presents with new chest pain. Patient reports that yesterday afternoon he began experiencing trembling followed by chest discomfort, which persisted into today. He describes the pain as constant, pressure-like, localized to the left chest without radiation, not worsened by breathing or coughing, and not relieved with rest. He reports mild shortness of breath but denies nausea, vomiting, diaphoresis, dizziness, or syncope. He states the quality of pain is different from his prior [place] in September, which prompted him to present early. He has not followed up with cardiology since hospital discharge. He reports adherence to his prescribed medications, though occasionally forgets a dose. He denies current alcohol or illicit drug use. He reports quitting cigarettes and meth after his September hospitalization. No recent fevers, cough, or infectious symptoms. No leg swelling or hemoptysis. In the ED, vitals were stable. EKG showed changes consistent with prior infarct, possible new lateral involvement. Labs revealed troponin 0.117 (possible baseline elevation, will trend) and potassium 2.7. Chest x-ray showed no acute process. He received aspirin 324 mg, IV fluids, alprazolam 0.5 mg, and K repletion was initiated. Review of Systems (ROS): * General: No fevers, chills, or sweats. * Neuro: No weakness, numbness, or syncope. * CV: Chest pain as above. No palpitations. * Resp: Mild shortness of breath. No cough, wheezing, or hemoptysis. * GI: No abdominal pain, nausea, vomiting, melena, or hematochezia. * : No dysuria or hematuria. * Extremities: No swelling or calf pain. * Skin: No rashes. All other systems reviewed and negative. Past Medical History (PMH): * STEMI (09/2024) --> PCI to left main and LAD * HFrEF (EF 30%) * Cardiogenic shock, resolved (09/2024 admission) * COPD * Hypercholesterolemia * Hypotension (on midodrine previously) * Iron deficiency anemia * Substance use (marijuana, quit September 2024), smoker (quit September 2024) Past Surgical History (PSH): * PCI ?2 (09/25/24 and 09/26/24) Allergies: * NKDA Medications (pending full med rec's): * Aspirin 81 mg daily * Ticagrelor (Brilinta) 90 mg BID * Atorvastatin 80 mg nightly * Midodrine 5 mg TID (previously, may be held if normotensive) * Iron supplements * Nicotine patch Family History: * Father: sudden cardiac at 55 * Mother: breast cancer () Social History: * Lives alone, independent * Former smoker (quit September 2024, prior 5 pack-years) * Former meth user, per patient quit September 2024 * Occasional marijuana use in past, denies recent use * No alcohol * 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 Exam Vital Signs Temp Pulse Resp BP Pulse Ox O2 Del Method 97.7 F 91 18 94/62 95 Room Air 12/03/24 01:48 12/03/24 01:48 12/03/24 01:48 12/03/24 01:48 12/03/24 01:48 12/03/24 01:48 Narrative Exam General: Alert, oriented, in no acute distress at rest HEENT: Conjunctivae clear, oropharynx normal Neck: Supple, no JVD CV: RRR, no murmurs Resp: Good air movement, clear to auscultation bilaterally Abd: Soft, nontender, no distension Extremities: No edema, no calf tenderness Skin: Warm, dry Neuro: AO?3, no focal deficits Results: Labs 12/03/24 00:17 12/03/24 00:17 Labs: Short CBC 12/03/24 Range/Units 00:17 WBC 8.0 (3.8-10.6) Thou/mm3 Hgb 11.7 L (13.5-16.0) g/dL Hct 33.9 L (41.0-53.0) % Plt Count 184 (140-440) Thou/mm3 BMP 12/03/24 00:17 Sodium 144 Potassium 2.7 L* Chloride 110 H Carbon Dioxide 23.5 BUN 11 Creatinine 1.1 Glucose 212 H Calcium 8.5 Cardiac Enzymes 12/03/24 Range/Units 00:17 Troponin I 0.117 H* (0.0-0.045) ng/mL Quality Measures Quality Measures VTE prophylaxis Medications Home Medications and Allergies Allergies Allergy/AdvReac Type Severity Reaction Status Date / Time No Known Allergies Allergy Verified 12/02/24 23:29 Visit Medications Discontinued Medications Alprazolam (Alprazolam 0.25 Mg Tablet) 0.5 mg PO X1 ONE Stop: 12/02/24 23:43 Last Admin: 12/03/24 00:20 Dose: 0.5 mg Aspirin (Aspirin 81 Mg Chew) 324 mg PO X1 ONE Stop: 12/02/24 23:43 Last Admin: 12/03/24 00:20 Dose: 324 mg Enoxaparin Sodium (Enoxaparin Sod Inj 80 Mg/0.8 Ml Syringe) 80 mg SC X1 ONE Stop: 12/03/24 01:16 Last Admin: 12/03/24 01:56 Dose: 80 mg Sodium Chloride (Ns) 1,000 mls @ 999 mls/hr IV .Q1H1M ONE Stop: 12/03/24 00:34 Last Infusion: 12/03/24 01:20 Dose: Infused Potassium Chloride (Kcl Ivpb) 10 meq in 100 mls @ 100 mls/hr IV X1 ONE Stop: 12/03/24 02:03 Morphine Sulfate (Morphine Sulf Inj 10 Mg/Ml Vial) 2 mg IVP X1 ONE Stop: 12/03/24 01:05 Last Admin: 12/03/24 01:44 Dose: 2 mg Potassium Chloride (Potassium Chloride 10% 20 Meq/15 Ml Udc) 40 meq PO X1 ONE Stop: 12/03/24 01:05 Last Admin: 12/03/24 01:42 Dose: 40 meq Potassium Chloride (Potassium Chloride 20 Meq Tabcr) 40 meq PO X1 ONE Stop: 12/03/24 02:03 Assessment & Plan Plan 53M with recent STEMI s/p PCI (L main & LAD, EF 30%) presenting with chest pain, troponin 0.117, and EKG showing sinus tachycardia with new incomplete RBBB and ischemic changes. Concerning for unstable angina vs NSTEMI. # Unstable angina vs NSTEMI Chest pain pressure-like, similar to prior episode. Troponin 0.117 may represent baseline from prior injury, but will trend q6h. EKG with Sinus tachycardia with new incomplete RBBB, Q waves from prior septal [place], and possible lateral ischemic changes. Plan: * Admit to telemetry, continuous monitoring * Serial troponins ?3 and EKGs * Continue ASA 81 mg daily and Ticagrelor 90 mg BID * Continue atorvastatin 80 mg nightly * SL nitroglycerin PRN if SBP >100 * Morphine PRN if pain refractory * Cardiology consult # Hypokalemia, severe K 2.7, Mg 1.7 Plan: * Replete K PO & IV, repeat BMP after repletion * Replete Mg IV 4 g * Daily BMP # HFrEF, EF 30% ischemic cardiomyopathy Post-[place] EF 30%, not on GDMT due to hypotension. Plan: * Monitor volume status, strict I/O, daily weights * Avoid IV fluids unless hypotensive * Hold midodrine unless SBP <90 # COPD No wheezing or increased sputum, no current exacerbation. Plan: * Continue home inhalers if available * PRN DuoNeb if SOB/wheezing develops # Hypercholesterolemia Plan: * Continue atorvastatin 80 mg nightly # Anemia, possible iron deficiency anemia Hgb stable 11.7, iron deficiency previously Plan: * Continue oral iron * Monitor CBC # Substance use, former #Methamphetamine use disorder, in remission #Nicotine dependence, cigarettes, uncomplicated, in remission #Cannabis use, unspecified, in remission) History of methamphetamine, marijuana, and tobacco use. Quit all in September 2024 after STEMI. Plan: * Reinforce cessation * Continue nicotine patch Health Maintenance: Disposition: Admit to telemetry Diet: Cardiac diet DVT ppx: Enoxaparin 40 mg SC daily GI ppx: Not indicated unless high risk Code Status: Full Code ----- Plan discussed with attending physician Dr. Olena Bustos MD PGY-1 Internal Medicine
[2024-12-03] MEDS: POTASSIUM CHL 10 mEq IVPB 10 MEQ/100 ML BAG 100 MEQ IV ×2 (02:11→08:23)
[2024-12-03 03:42] LABS: Potassium 3.6 mMol/L (3.4-5.1)
[2024-12-03] MEDS: Magnesium Sulfate 4 GM Ivpb 4 GM/50 ML BAG IV (04:07)
[2024-12-03] MEDS: FERROUS SULF 325 MG TABLET PO ×2 (04:07→11:13)
[2024-12-03 06:56] LABS: Basophils # (Auto) 0.0 Thou/mm3 (0.0-0.2); Basophils % (Auto) 0 % (0-2.5); Eosinophils # (Auto) 0.3 Thou/mm3 (0.0-0.5); Eosinophils % (Auto) 4 % (0-10); Hematocrit 36.0 % (41.0-53.0); Hemoglobin 12.0 g/dL (13.5-16.0); Immature Granulocytes Auto 0.02 Thou/mm3 (0.00-0.00); Lymphocytes # (Auto) 2.3 Thou/mm3 (1.0-4.8); Lymphocytes % (Auto) 26 % (10-50); Mean Corpuscular HGB Conc 33.3 g/dl (31.0-37.0); Mean Corpuscular Hemoglobin 31.7 pg (25.0-35.0); Mean Corpuscular Volume 95 fL (80-100); Monocytes # (Auto) 0.7 Thou/mm3 (0.0-0.8); Monocytes % (Auto) 8 % (0-12); Neutrophils # (Auto) 5.5 Thou/mm3 (1.8-7.7); Neutrophils % (Auto) 62 % (37-80); Nucleated Red Blood Cell # 0.00 Thou/mm3 (0.00-0.00); Nucleated Red Blood Cell % 0 /100 WBC (0); Platelet Count 181 Thou/mm3 (140-440); RDW Standard Deviation 45.7 fL (35.1-43.9); Red Blood Count 3.79 Miln/mm3 (4.50-5.90); White Blood Count 9.0 Thou/mm3 (3.8-10.6)
[2024-12-03 07:48] LABS: Alanine Aminotransferase 30 U/L (10-49); Albumin, Serum 3.7 gm/dL (3.5-5.0); Albumin/Globulin Ratio 2.1 (1.2-2.2); Alkaline Phosphatase 54 U/L (46-116); Anion Gap 10 (7-16); Aspartate Amino Transferase 18 U/L (0-34); BUN/Creatinine Ratio 11 Ratio (12-20); Bilirubin,Total 0.3 mg/dL (0.3-1.2); Blood Urea Nitrogen 10 mg/dL (9-23); Calcium 8.4 mg/dL (8.3-10.6); Calcium (Corrected) 8.6 mg/dL (8.5-10.1); Carbon Dioxide 26.1 mMol/L (20.0-31.0); Chloride 111 mMol/L (98-107); Creatinine (Component) 0.9 mg/dL (0.6-1.3); Estimated Creatinine Clearance 85.7 mL/min (>60); Globulin 1.8 gm/dL (2.3-3.5); Glucose 92 mg/dL (74-106); Magnesium 1.9 mg/dL (1.6-2.6); Osmolality,Calculated 291 (275-295); Potassium 3.3 mMol/L (3.4-5.1); Sodium 147 mMol/L (136-145); Total Protein 5.5 gm/dL (5.7-8.2); eGFR > 60 See Note
[2024-12-03 07:57] LABS: Troponin I 0.404 ng/mL (0.0-0.045)
--- NOTE | 2024-12-03 08:14 | PC.NURSE ---
Per Dr. Soto, holding all patient's medications this morning except for the IV potassium until Dr. Lerma informs the team if he needs to perform cardiac catheterization on patient.
[2024-12-03] MEDS: POTASSIUM CHL 10 mEq IVPB 10 MEQ/100 ML BAG 60 MEQ IV (09:55)
[2024-12-03 10:28] LABS: Amphetamine/Methamp Scrn,U Positive (Negative); Barbiturate Screen,Urine Negative (Negative); Benzodiazepines Screen,Urine Negative (Negative); Benzoylecgonine Screen, Ur Negative (Negative); Fentanyl Screen,Urine Negative (Negative); Opiate Screen,Urine Positive (Negative); THC Screen,Urine Positive (Negative)
--- NOTE | 2024-12-03 10:43 | EKG_ITS ---
[facility] Test Date: 2024-12-03 Pat Name: PIPO GOLDEN [facility] Gender[facility] Male System Archive Analyst: MONICA : 1970 Requested By: Jennifer Miramontes Order Number: [id number] Reading MD: Jennifer Miramontes Measurements Intervals [place] Rate: 72 P: 10 HI: 144 QRS: 49 QRSD: 93 T: 77 QT: 403 QTc: 444 Interpretive Statements SINUS RHYTHM SEPTAL MYOCARDIAL INFARCTION , OF INDETERMINATE AGE POSSIBLE LATERAL MYOCARDIAL INFARCTION , OF INDETERMINATE AGE MODERATE T-WAVE ABNORMALITY, CONSIDER ANTERIOR ISCHEMIA Compared to ECG 12/02/2024 23:34:14 T-wave abnormality now present Possible ischemia now present Sinus tachycardia no longer present Incomplete right bundle-branch block no longer present Myocardial infarct finding still present /store/S0/[id number]/[id number].pdf
--- NOTE | 2024-12-03 10:57 | PC.NURSE ---
Dr. Soto called. Okayed for patient to have morning meds. with sips of water. will start heparin drip
[2024-12-03] MEDS: TICAGRELOR 90 MG TABLET PO ×2 (11:14→20:15)
[2024-12-03] MEDS: ASPIRIN EC 81 MG TABEC PO (11:14)
[2024-12-03] MEDS: POTASSIUM CHL 10 mEq IVPB 10 MEQ/100 ML BAG 50 MEQ IV ×2 (11:15→12:34)
[2024-12-03 12:15] LABS: Partial Thromboplastin Time 30.9 Seconds (22.0-36.0)
[2024-12-03 12:24] LABS: Collection Type, Urine Clean Catch; Squamous Epithelial Cell,Urine 0 /hpf (0-5)
[2024-12-03] MEDS: Heparin/D5w 25K 250 ML Ivpb 25,000 UNIT/250 ML BAG 9.074 UNIT IV (12:31)
[2024-12-03] MEDS: HEPARIN SOD INJ 5000 UNIT/ML VIAL 4000 UNIT IV (12:32)
[2024-12-03 12:35] LABS: Troponin I 0.127 ng/mL (0.0-0.045)
[2024-12-03 12:45] LABS: Bilirubin,Urine Negative (Negative); Blood,Urine Negative (Negative); Clarity,Urine Clear (Clear/Hazy); Color,Urine Lt-Yellow (Lt Yel-Yel); Culture Indicated,Urine Not Indicated; Glucose, Urine Trace (Negative); Ketones,Urine Negative (Negative); Leukocyte Esterase,Urine Negative (Negative); Nitrite,Urine Negative (Negative); PH,Urine 6.0 (5.0-7.0); Protein,Urine Negative (Neg - Trace); RBC,Urine 1 /hpf (0-3); Specific Gravity,Urine 1.026 (1.001-1.035); Urobilinogen,Urine Negative mg/dL (0.0-1.0); WBC,Urine 1 /hpf (0-5)
--- NOTE | 2024-12-03 12:51 | PC.NURSE ---
Patient anxious, twisting and turning in bed. States that he feels hot and like he is going to throw up. Called Dr. Soto two times. Have not been able to get ahold of . will continue to monitor patient and continue to try to get a hold of
[2024-12-03] MEDS: ONDANSETRON INJ 2 MG/ML INJ 2 ML 4 MG IVP (12:55)
--- NOTE | 2024-12-03 13:05 | PC.NURSE ---
Called Dr. Soto again. did not answer. Gave patient zofran for nausea. Patient stills hot and anxious, however, laying in bed at this time. will continue to assess and try to call
--- NOTE | 2024-12-03 13:24 | PC.NURSE ---
Dr. Soto with team arrived on Tele floor. Updated team on Patient symptoms. New orders given
--- NOTE | 2024-12-03 13:28 | ESCONSULT_ITS ---
<Statement entered by Edgar Lerma MD - 12/03/24 19:23> I personally examined this patient evaluate whose had a history of massive acute myocardial infarction left main occlusion 2 months ago came to the hospital with no having any chest pain some tachycardia palpitation heart rate more than 100 bpm with no pain at all in the chest no other symptoms no shortness of breath there is mild troponin abnormality which is possible type II troponin there is no significant EKG changes or clinical picture suggestive of coronary reocclusion. Will monitor the patient trend the troponin levels continue aspirin Brilinta combination and IV heparin for now. Low-dose beta-elba is recommended since the patient has significant tachycardia I will let her blood pressure as tolerated. Agree with treatment and recommendations documented by Dr. Nick Nelson PGY1 will continue to monitor the patient closely HPI Data of Consult Requesting Physician: Dajuan Hyatt MD Admitting Provider: Dajuan Hyatt MD Attending Provider: Dajuan Hyatt MD Primary Care Provider: Physician No Primary/Family Consult Narrative History of present illness: 53-year-old male with a PMH of STEMI in September 2024 status post PCI with stent to distal left main and left anterior descending artery, HFrEF with an EF of 30%, COPD, hypercholesterolemia, hypotension, anemia, who presented to the ED the hr administrative assistant of 12/03/2024 with chest pain. Upon presentation the patient reported that the previous day in the afternoon he experienced trembling followed by chest discomfort that persisted into today. He described it as constant pressure localized to the left chest without radiation and not exacerbated by breathing or coughing and not relieved with rest. He endorsed mild shortness of breath but denied nausea vomiting diaphoresis dizziness or syncope. He stated the quality of his pain is different from his previous [place] back in September. He never followed up with cardiology after hospital discharge but he reports adherence to his prescribed medications, occasionally forgetting a dose. He did deny alcohol, illicit drug use, cigarettes, and admitted to quitting meth after his September hospitalization. In the ED, vitals were stable. EKG showed changes consistent with prior infarct, possible new lateral involvement. Labs revealed troponin 0.117 (possible baseline elevation, will trend) and potassium 2.7. Chest x-ray showed no acute process. He received aspirin 324 mg, IV fluids, alprazolam 0.5 mg, and K repletion was initiated. Reason for consult: Cardiology was consulted for management of the patient's chest pain status post stent placement in September 2024. Past Medical History (PMH): STEMI (09/2024) --> PCI to left main and LAD HFrEF (EF 30%) Cardiogenic shock, resolved (09/2024 admission) COPD Hypercholesterolemia Hypotension (on midodrine previously) Iron deficiency anemia Substance use (marijuana, quit September 2024), smoker (quit September 2024) Past Surgical History (PSH): PCI ?2 (09/25/24 and 09/26/24) Allergies: NKDA Medications (pending full med rec's): Albuterol Aspirin 81 mg daily Ticagrelor (Brilinta) 90 mg BID Atorvastatin 80 mg nightly Midodrine 5 mg TID (previously, may be held if normotensive) Iron supplements Nicotine patch Family History: Father: sudden cardiac at 55 Mother: breast cancer () Social History: Lives alone, independent Former smoker (quit September 2024, prior 5 pack-years) Former meth user, per patient quit September 2024 Occasional marijuana use in past, denies recent use No alcohol 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 * HEENT: Denies headache, congestion, or sore throat. * Cardiac: Patient mentions that he feels like his heart is going too fast. Denies chest pain. * Pulmonary: Denies shortness of breath or cough. * GI: Denies nausea, vomiting, diarrhea, constipation, melena, or hematochezia. * : Denies dysuria, hematuria, frequency, or urgency. * MSK: Denies pain in the extremities, joints, or myalgias. * Neuro: Denies weakness, numbness, vision changes, or speech difficulty. Exam Vital Signs Temp Pulse Resp BP Pulse Ox O2 Del Method 97.0 F 71 15 119/81 96 Room Air 12/03/24 12:00 12/03/24 12:00 12/03/24 12:00 12/03/24 12:00 12/03/24 12:12/03/24 12:00 Narrative Exam General: Awake and in no acute distress. Conversational and non-toxic appearing. Neurologic: GCS 15. Alert and oriented x3, no gross neurological deficit, and patient able to move all 4 extremities. HEENT: Normocephalic, atraumatic, mucous membranes moist. Pupils reactive to light. Heart: Regular rate and rhythm, normal S1 and S2, no murmurs. Lungs: Clear to auscultation bilaterally with no wheezing or crackles. Abdomen: Soft, nondistended, nontender, positive bowel sounds. No guarding or rebound tenderness. Extremities: No edema. 2+ radial and dorsalis pedis pulses bilaterally. Skin: Warm. Dry. No rash or ecchymoses. Results Labs 12/03/24 06:00 12/03/24 06:00 Labs: Short CBC 12/03/24 12/03/24 Range/Units 00:17 06:00 WBC 8.0 9.0 (3.8-10.6) Thou/mm3 Hgb 11.7 L 12.0 L (13.5-16.0) g/dL Hct 33.9 L 36.0 L (41.0-53.0) % Plt Count 184 181 (140-440) Thou/mm3 BMP 12/03/24 12/03/24 12/03/24 00:17 03:18 06:00 Sodium 144 147 H Potassium 2.7 L* 3.6 D 3.3 L Chloride 110 H 111 H Carbon Dioxide 23.5 26.1 BUN 11 10 Creatinine 1.1 0.9 Glucose 212 H 92 D Calcium 8.5 8.4 Cardiac Enzymes 12/03/24 12/03/24 12/03/24 Range/Units :17 06:00 11:30 Troponin I 0.117 H* 0.404 H* D 0.127 H* D (0.0-0.045) ng/mL Liver Function 12/03/24 Range/Units 06:00 Total Bilirubin 0.3 (0.3-1.2) mg/dL AST 18 (0-34) U/L ALT 30 (10-49) U/L Alkaline Phosphatase 54 (46-116) U/L Albumin 3.7 (3.5-5.0) gm/dL Urine 12/03/24 Range/Units 12:15 Urine Color Lt-Yellow (Lt Yel-Yel) Urine Clarity Clear (Clear/Hazy) Urine pH 6.0 (5.0-7.0) Ur Specific [place] 1.026 (1.001-1.035) Urine Protein Negative (Neg - Trace) Urine Glucose (UA) Trace (Negative) Quality Measures Quality Measures VTE prophylaxis Medications Home Medications and Allergies Allergies Allergy/AdvReac Type Severity Reaction Status Date / Time No Known Allergies Allergy Verified 12/02/24 23:29 Visit Medications Acetaminophen (Acetaminophen 325 Mg Tablet) 650 mg PO Q6H PRN PRN Reason: Fever >100.4 Stop: 01/02/25 02:00 Acetaminophen (Acetaminophen 325 Mg Tablet) 650 mg PO Q6H PRN PRN Reason: PAIN SCALE 1-3 (mild Stop: 01/02/25 02:00 Hydrocodone Bitart/Acetaminophen (Hydrocodone/Apap 5/325 Tablet) 1 tab PO Q4HR PRN PRN Reason: PAIN SCALE 4-6 (Moderate Stop: 12/08/24 02:00 Albuterol/Ipratropium (Albuterol/Ipratropium (Duoneb) Rt Wilma 3 Ml Nebu) 3 ml INH Q2HR PRN PRN Reason: SHORTNESS OF BREATH OR WHEEZE Stop: 01/02/25 02:14 Aspirin (Aspirin Ec 81 Mg Tabec) 81 mg PO QDAY [facility] Stop: 01/02/25 08:59 Last Admin: 12/03/24 11:14 Dose: 81 mg Atorvastatin Calcium (Atorvastatin Calcium 20 Mg Tablet) 80 mg PO HS [facility] Stop: 01/02/25 20:59 Ferrous Sulfate (Ferrous Sulf 325 Mg Tablet) 325 mg PO QOD [facility] Stop: 01/02/25 02:29 Last Admin: 12/03/24 11:13 Dose: 325 mg Heparin Sodium/Dextrose (Heparin In D5w Ivpb) 25,000 unit in 250 mls @ 9.074 mls/hr IV .Q24H [facility]; Protocol Stop: 12/17/24 10:59 Last Admin: 12/03/24 12:31 Dose: 12 units/kg/hr, 9.074 mls/hr Metoprolol Tartrate (Metoprolol Tartrate 25 Mg Tablet) 25 mg PO BID [facility] Stop: 01/02/25 20:59 Morphine Sulfate (Morphine Sulf Inj 10 Mg/Ml Vial) 2 mg IVP Q2H PRN PRN Reason: PAIN SCALE 7-10 (Severe Stop: 12/08/24 02:00 Nicotine (Nicotine Patch 14 Mg/24 Hr Patch.Td24) 14 mg TOP QDAY [facility] Stop: 01/02/25 08:59 Last Admin: 12/03/24 09:10 Dose: Not Given Nitroglycerin (Nitroglycerin 0.4 Mg Subl Btl #25) 0.4 mg SL Q5MIN PRN PRN Reason: CHEST PAIN Ondansetron HCl (Ondansetron Inj 2 Mg/Ml Inj 2 Ml) 4 mg IVP Q6H PRN; Protocol PRN Reason: NAUSEA OR VOMITING Stop: 01/02/25 02:00 Last Admin: 12/03/24 12:55 Dose: 4 mg Pantoprazole Sodium (Pantoprazole Inj 40 Mg Vial) 40 mg IVP QDAY [facility] Stop: 01/02/25 08:59 Last Admin: 12/03/24 11:12 Dose: 40 mg Sennosides (Senna Tablet) 1 tab PO QDAY PRN; Protocol PRN Reason: constipation Stop: 01/02/25 02:00 Ticagrelor (Ticagrelor 90 Mg Tablet) 90 mg PO BID [facility] Stop: 01/02/25 08:59 Last Admin: 12/03/24 11:14 Dose: 90 mg Discontinued Medications Alprazolam (Alprazolam 0.25 Mg Tablet) 0.5 mg PO X1 ONE Stop: 12/02/24 23:43 Last Admin: 12/03/24 00:20 Dose: 0.5 mg Aspirin (Aspirin 81 Mg Chew) 324 mg PO X1 ONE Stop: 12/02/24 23:43 Last Admin: 12/03/24 00:20 Dose: 324 mg Enoxaparin Sodium (Enoxaparin Sod Inj 80 Mg/0.8 Ml Syringe) 80 mg SC X1 ONE Stop: 12/03/24 01:16 Last Admin: 12/03/24 01:56 Dose: 80 mg Enoxaparin Sodium (Enoxaparin Sod Inj 40 Mg/0.4 Ml Syringe) 40 mg SC QDAY [facility] Stop: 12/17/24 08:59 Heparin Sodium (Porcine) (Heparin Sod Inj 5000 Unit/Ml Vial) 4,000 unit IV X1 ONE; Protocol Stop: 12/03/24 10:51 Last Admin: 12/03/24 12:32 Dose: 4,000 unit Sodium Chloride (Ns) 1,000 mls @ 999 mls/hr IV .Q1H1M ONE Stop: 12/03/24 00:34 Last Infusion: 12/03/24 01:20 Dose: Infused Potassium Chloride (Kcl Ivpb) 10 meq in 100 mls @ 100 mls/hr IV X1 ONE Stop: 12/03/24 02:03 Last Infusion: 12/03/24 03:11 Dose: Infused Magnesium Sulfate (Magnesium Sulfate Ivpb) 4 gm in 50 mls @ 12.5 mls/hr IV X1 ONE Stop: 12/03/24 06:15 Last Admin: 12/03/24 04:07 Dose: 12.5 mls/hr Potassium Chloride (Kcl Ivpb) 10 meq in 100 mls @ 100 mls/hr IV Q1H [facility] Stop: 12/03/24 11:59 Last Admin: 12/03/24 12:34 Dose: 50 mls/hr Midazolam HCl (Midazolam Inj 1 Mg/Ml Vial 2 Ml) 1 mg IVP X1 ONE Stop: 12/03/24 13:14 Morphine Sulfate (Morphine Sulf Inj 10 Mg/Ml Vial) 2 mg IVP X1 ONE Stop: 12/03/24 01:05 Last Admin: 12/03/24 01:44 Dose: 2 mg Potassium Chloride (Potassium Chloride 10% 20 Meq/15 Ml Udc) 40 meq PO X1 ONE Stop: 12/03/24 01:05 Last Admin: 12/03/24 01:42 Dose: 40 meq Potassium Chloride (Potassium Chloride 20 Meq Tabcr) 40 meq PO X1 ONE Stop: 12/03/24 02:03 Last Admin: 12/03/24 04:07 Dose: 40 meq Potassium Chloride (Potassium Chloride 10% 20 Meq/15 Ml Udc) 40 meq PO X1 ONE Stop: 12/03/24 08:00 Last Admin: 12/03/24 11:12 Dose: 40 meq Assessment & Plan Plan 53-year-old male with a PMH of STEMI in September 2024 status post PCI with stent to distal left main and left anterior descending artery, HFrEF with an EF of 30%, COPD, hypercholesterolemia, hypotension, anemia, who presented to the ED the hr administrative assistant of 12/03/2024 with chest pain. Cardiology was consulted for management of the patient's chest pain status post stent placement in September 2024. Upon consultation the patient denied chest pain but described his heart as beating too fast. #Coronary artery disease status post stent placement #HFrEF EF 30% #Unstable angina versus NSTEMI * Low suspicion for ischemic component of the patient's original chest pain on presentation due to troponins trending downwards and no acute ST segment changes on most recent EKG, patient also denies chest pain on cardiology evaluation * Patient mentioned on admission that he occasionally misses a dose of his prescribed medications, consider missed dose of beta-elba in the presence of this fact, in addition to sinus tachycardia on EKG on admission, and the patient mentioning that his heart feels like it is beating too fast * Patient denied shortness of breath on evaluation and does not associate shortness of breath with exercise, further reinforcing that ischemic heart disease is a less likely cause of the patient's original chest pain Plan: * Continue home medications aspirin, atorvastatin, midodrine, Brilinta * Continue metoprolol 25 mg p.o. twice daily #Hypokalemia #COPD #Hypercholesterolemia #Anemia # Substance use, former #Methamphetamine use disorder, in remission #Nicotine dependence, cigarettes, uncomplicated, in remission #Cannabis use, unspecified, in remission) The remainder of the patient's hospital problems will be managed per the primary team. Patient was seen and discussed with my attending physician Dr. Lerma. Nick Nelson DO PGY-1.
--- NOTE | 2024-12-03 14:26 | PC.NURSE ---
Went to give patient midazolam for anxiety. Pt decided he wants to leave AMA. Held midazolam at this time. Called Dr. valderrama and made aware. said to hold midazolam at this time. Dr. Bolden came to talk to patient and family. Pt's family and Dr. bolden talked patient in to staying. New orders for Librium. Will continue to monitor patient.
[2024-12-03] MEDS: ALBUTEROL/IPRATROPIUM (Duoneb) RT SOL 3 ML NEBU INH (14:38)
--- NOTE | 2024-12-03 14:48 | PD.ADDPROG ---
Addendum Progress Note Addendum Date of report being addended: 12/03/24 Narrative: I Casey Soto MD reviewed the note and agree with the resident's assessment & plan with modifications/additions/exceptions as below. I have personally reviewed labs, imaging, home meds/prior records, examined the patient, formulated and discussed management plan with the IM team. A 53-year-old male with history of polysubstance use including methamphetamine, HFrEF with EF 30% had a recent NC with PCI in September 2024 presented to ED with atypical chest pain and admitted for NSTEMI. Further evaluation did reveal slightly elevated troponin however flat hued however EKG remained nonischemic. Patient is clinically euvolemic. Will continue aspirin, statin, Brilinta, start on low-dose beta-blockers and will uptitrate as tolerated. Will start on therapeutic anticoagulation as per [facility] protocol as patient has been reported to be noncompliant with medications. Consult cardiology for further evaluation. Patient initially explicitly refused taking methamphetamine and alcohol however admits taking last dose few days ago. Obtain repeat EKG and troponin if patient has active chest pain. If has chest pain again we will start on p.o. nitrates. Patient is also noted to be in slight withdrawal will start on CIWA protocol with Librium. However is fully alert oriented at this point. Keep on telemetry monitoring, electrolyte replacement as per protocol.
--- NOTE | 2024-12-03 15:02 | ESPR_ITS ---
<Statement entered by Eladio Soto MD - 12/03/24 19:36> Patient is seen at bedside currently having withdrawal symptoms secondary to his polysubstance use. Patient is agitated and multiple times have threatened to leave AMA. Therefore we will hold on giving patient IV Ativan or IV Versed as patient repeatedly has mentioned that he will leave AMA despite receiving medications. Cardiology saw the patient currently no concern for emergent need for angiogram will continue to follow the trops and will discontinue trending it once they start downtrending. Patient states he does not have any sharp pain but instead the pressure-like pain more prominent with inspiration. Denies exertional pain currently patient is stable. Will continue heparin drip for now, repeat EKG and add metoprolol to tartrate 25 twice daily. For agitation we will add Librium 25 mg as needed. Patient was seen and examined by me personally. I have directly supervised and reviewed documentation by the team resident and agree with its findings. ------- Plan of care was discussed with the attending, Dr. Charles Soto, PGY-2 Documentation for date of: 12/03/24 Subjective Subjective Interval history: Patient admitted overnight. Patient seen and examined at bedside in the AM. Patient endorses some pressure-like chest pain on the left side of the chest worsened sometimes by breathing deeply. Reports not missing any doses however H&P states he sometimes misses doses. Patient once again seen in afternoon, however more anxious and agitated with family at bedside. Patient was indicating that he was going to leave AMA if he did not receive something to calm him down. When prompted if he would still leave AMA after being given medication he reported that he would. Per family at bedside, if patient left AMA insurance would not cover his current hospital stay. Family convince patient to stay and patient was given Librium 25 mg p.o. and fell asleep. Troponins currently downtrending. Started metoprolol 25 mg twice daily and heparin drip which is planned to continue for the next 48 hours. Lovenox stopped. K was 3.3 and repleted with potassium 40 mEq IV. Cardiology was consulted, plan to resume home medications of aspirin, atorvastatin, midodrine and Brilinta and no cardiac intervention will be done at this time so regular diet was started. Exam Vital Signs Temp Pulse Resp BP Pulse Ox O2 Del Method O2 Flow Rate 97.0 F 82 24 H 119/81 95 Room Air 2 12/03/24 12:00 12/03/24 14:50 12/03/24 14:50 12/03/24 12:00 12/03/24 14:50 12/03/24 12:00 12/03/24 14:50 Narrative Exam GENERAL: AOx3, anxious agitated HEENT: NC/AT, mucous membranes moist, bilateral sclera anicteric CARDIOVASCULAR: regular rate and rhythm, S1/S2 present, no murmurs appreciated PULMONARY: clear to auscultation bilaterally, no rales/rhonchi/wheezes ABDOMINAL: soft, non-tender, non-distended, no rebound/guarding, bowel sounds present EXTREMITIES: no peripheral edema SKIN: warm and dry, intact, no rashes NEURO: CN II-XII grossly intact, no focal deficits, alert, following commands Objective Labs 12/03/24 06:00 12/03/24 06:00 Labs: Laboratory Results - last 24 hr 12/03/24 12/03/24 12/03/24 00:17 03:18 06:00 WBC 8.0 9.0 RBC 3.66 L 3.79 L Hgb 11.7 L 12.0 L Hct 33.9 L 36.0 L MCV 93 95 MCH 32.0 31.7 MCHC 34.5 33.3 RDW Std Deviation 43.9 45.7 H Plt Count 184 181 Neut % (Auto) 74 62 Lymph % (Auto) 18 26 [place] % (Auto) 6 8 Eos % (Auto) 2 4 Baso % (Auto) 0 0 Neut # (Auto) 5.9 5.5 Lymph # (Auto) 1.4 2.3 [place] # (Auto) 0.5 0.7 Eos # (Auto) 0.2 0.3 Baso # (Auto) 0.0 0.0 Immature Gran # (Auto) 0.02 H 0.02 H Absolute Nucleated RBC 0.00 0.00 Immature Gran % 0 0 Nucleated RBC % 0 0 APTT D-Dimer < 250 Sodium 144 147 H Potassium 2.7 L* 3.6 D 3.3 L Chloride 110 H 111 H Carbon Dioxide 23.5 26.1 Anion Gap 11 10 BUN 11 10 Creatinine 1.1 0.9 Estim Creat Clear Calc 75.9 85.7 eGFR > 60 > 60 BUN/Creatinine Ratio 10 L 11 L Glucose 212 H 92 D Calculated Osmolality 292 291 Calcium 8.5 8.4 Corrected Calcium 8.6 Magnesium 1.7 1.9 Total Bilirubin 0.3 AST 18 ALT 30 Alkaline Phosphatase 54 Troponin I 0.117 H* 0.404 H* D B-Natriuretic Peptide 393 H Total Protein 5.5 L Albumin 3.7 Globulin 1.8 L Albumin/Globulin Ratio 2.1 TSH 1.87 Free T4 1.04 Ur Collection Type Urine Color Urine Clarity Urine pH Ur Specific [place] Urine Protein Urine Glucose (UA) Urine Ketones Urine Blood Urine Nitrite Urine Bilirubin Urine Urobilinogen (Auto) Ur Leukocyte Esterase Urine RBC Urine WBC Ur Squamous Epith Cells Urine Bacteria Ur Culture Indicated? Urine Opiates Screen Urine Fentanyl Screen Ur Barbiturates Screen U Amphetamin/Meth Scrn U Benzodiazepines Scrn U Cocaine Metab Screen U Marijuana (THC) Screen Ethyl Alcohol < 3.0 12/03/24 12/03/24 12/03/24 10:00 11:30 12:15 WBC RBC Hgb Hct MCV MCH MCHC RDW Std Deviation Plt Count Neut % (Auto) Lymph % (Auto) [place] % (Auto) Eos % (Auto) Baso % (Auto) Neut # (Auto) Lymph # (Auto) [place] # (Auto) Eos # (Auto) Baso # (Auto) Immature Gran # (Auto) Absolute Nucleated RBC Immature Gran % Nucleated RBC % APTT 30.9 D-Dimer Sodium Potassium Chloride Carbon Dioxide Anion Gap BUN Creatinine Estim Creat Clear Calc eGFR BUN/Creatinine Ratio Glucose Calculated Osmolality Calcium Corrected Calcium Magnesium Total Bilirubin AST ALT Alkaline Phosphatase Troponin I 0.127 H* D B-Natriuretic Peptide Total Protein Albumin Globulin Albumin/Globulin Ratio TSH Free T4 Ur Collection Type Clean Catch Urine Color Lt-Yellow Urine Clarity Clear Urine pH 6.0 Ur Specific [place] 1.026 Urine Protein Negative Urine Glucose (UA) Trace Urine Ketones Negative Urine Blood Negative Urine Nitrite Negative Urine Bilirubin Negative Urine Urobilinogen (Auto) Negative Ur Leukocyte Esterase Negative Urine RBC 1 Urine WBC 1 Ur Squamous Epith Cells 0 Urine Bacteria None Ur Culture Indicated? Not Indicated Urine Opiates Screen Positive A Urine Fentanyl Screen Negative Ur Barbiturates Screen Negative U Amphetamin/Meth Scrn Positive A U Benzodiazepines Scrn Negative U Cocaine Metab Screen Negative U Marijuana (THC) Screen Positive A Ethyl Alcohol Quality Measures Quality Measures VTE prophylaxis Assessment & Plan Assessment Current Active Medications: Generic Name Dose Route Start Last Admin Trade Name Freq PRN Reason Stop Dose Admin Acetaminophen 650 mg 12/03/24 02:01 Acetaminophen 325 Mg Tablet PO 01/02/25 02:00 Q6H PRN Fever >100.4 Acetaminophen 650 mg 12/03/24 02:01 Acetaminophen 325 Mg Tablet PO 01/02/25 02:00 Q6H PRN PAIN SCALE 1-3 (mild Albuterol/Ipratropium 3 ml 12/03/24 02:15 12/03/24 14:38 Albuterol/Ipratropium (Duoneb) Rt Wilma 3 Ml Nebu INH 01/02/25 02:14 3 ml Q2HR PRN Administration SHORTNESS OF BREATH OR WHEEZE Aspirin 81 mg 12/03/24 09:00 12/03/24 11:14 Aspirin Ec 81 Mg Tabec PO 01/02/25 08:59 81 mg QDAY NEMO Administration Atorvastatin Calcium 80 mg 12/03/24 21:00 Atorvastatin Calcium 20 Mg Tablet PO 01/02/25 20:59 HS NEMO Ferrous Sulfate 325 mg 12/03/24 02:30 12/03/24 11:13 Ferrous Sulf 325 Mg Tablet PO 01/02/25 02:29 325 mg QOD NEMO Administration Heparin Sodium/Dextrose 25,000 unit in 250 mls @ 9.074 mls/hr 12/03/24 11:00 12/03/24 12:31 Heparin In D5w Ivpb IV 12/17/24 10:59 12 units/kg/hr .Q24H NEMO 9.074 mls/hr Administration Protocol 12 UNITS/KG/HR Metoprolol Tartrate 25 mg 12/03/24 21:00 Metoprolol Tartrate 25 Mg Tablet PO 01/02/25 20:59 BID NEMO Nicotine 14 mg 12/03/24 09:00 12/03/24 09:10 Nicotine Patch 14 Mg/24 Hr Patch.Td24 TOP 01/02/25 08:59 Not Given QDAY NEMO Nitroglycerin 0.4 mg 12/03/24 02:01 Nitroglycerin 0.4 Mg Subl Btl #25 SL Q5MIN PRN CHEST PAIN Ondansetron HCl 4 mg 12/03/24 02:01 12/03/24 12:55 Ondansetron Inj 2 Mg/Ml Inj 2 Ml IVP 01/02/25 02:00 4 mg Q6H PRN Administration NAUSEA OR VOMITING Protocol Pantoprazole Sodium 40 mg 12/03/24 09:00 12/03/24 11:12 Pantoprazole Inj 40 Mg Vial IVP 01/02/25 08:59 40 mg QDAY NEMO Administration Sennosides 1 tab 12/03/24 02:01 Senna Tablet PO 01/02/25 02:00 QDAY PRN constipation Protocol Ticagrelor 90 mg 12/03/24 09:00 12/03/24 11:14 Ticagrelor 90 Mg Tablet PO 01/02/25 08:59 90 mg BID NEMO Administration Plan Raul Ac is a 53M with pmhx significant for STEMI s/p PCI (distal L main and LAD, EF 30% in 09/2024), COPD, HLD, hypotension on midodrine, methamphetamine use and iron deficiency anemia presented to [facility] ED on 12/03 for chest pain, admitted for NSTEMI and hypokalemia. #NSTEMI likely type II #HFrEF (EF 30%) 2/2 ischemic cardiomyopathy Patient presented with troponin of 0.117, 0.404, 0.127. Patient reports being adherent to aspirin and Brilinta since receiving stents however overnight team history-taking reports missing some doses. Unlikely NSTEMI type I as troponins are downtrending. UDS which is positive for methamphetamines may be a cause of current chest pain due to vasoconstriction although patient denies any current use. EKG reviewed and ST segment changes are likely lateral old infarcts and less likely acute infarcts iso recent STEMI in 09/2024. Lovenox discontinued as patient was being worked up for NSTEMI. s/p loading ASA 324 mg in ED Plan: - Cardiology consulted, recs appreciated: Continue aspirin, atorvastatin, midodrine, Brilinta. No plans for cardiac cath. - Start metoprolol 25 mg twice daily - Started heparin drip, plan to continue for the next 48 hours - Keep K>4 and Mg>2 #Hypokalemia On admission potassium 2.7, repleted with IV and p.o. potassium increased to 3.6. This morning hypokalemic at 3.3. Plan: - Recheck and replete as necessary - Repleted with PO KCl 40 mEq #Hx of hypotension Hypotension on midodrine 5 mg 3 times daily with parameters. Current blood pressures are SBP 90-100s/60-70s. Plan: - Contnue home midodrine 5 mg TID with parameters to hold if SBP >90 #Methamphetamine dependence Patient seems to be agitated and anxious with family at bedside and likely withdrawing from amphetamines. Consistently denies current methamphetamine use when prompted. s/p PO Librium 25 mg x1 Plan: - CTM mental status - Consider p.o. Librium 25 mg x 1 if anxious, no prn will be ordered Chronic problems #COPD #HLD #Iron deficiency anemia Plan: - Duonebs q2h prn in place - Continue home atorvastatin as above - Recommend workup outpatient Hospital management: Lines: peripheral IV Diet: Regular Bowel: senna GI prophylaxis: IV pantoprazole 40 mg QD DVT prophylaxis: heparin Disposition: tele for management of NSTEMI CODE STATUS: Full code Plan of care discussed with attending Dr. Soto, and PGY-2 Dr. Soto. Jennifer Miramontes, DO PGY-1 Internal Medicine
--- NOTE | 2024-12-03 15:10 | PC.SS ---
Metalworking Instructor (SW) Marija attempted to complete assessment. Patient was asleep, unable to engage in assessment.
[2024-12-03 19:10] LABS: Partial Thromboplastin Time 45.9 Seconds (22.0-36.0)
[2024-12-03 19:15] LABS: Troponin I 0.051 ng/mL (0.0-0.045)
[2024-12-03] MEDS: ATORVASTATIN CALCIUM 20 MG TABLET 80 MG PO (20:14)
[2024-12-03] MEDS: METOPROLOL TARTRATE 25 MG TABLET PO (20:14)
[2024-12-03] MEDS: HEPARIN SOD INJ 5000 UNIT/ML VIAL 2000 UNIT IVP (20:17)
[2024-12-04] VITALS (10 sets, daily range): BP systolic 93–125; BP diastolic 52–89; PULSE 48–75; RESP 13–98; TEMP 36–36.9; O2SAT 94–98; BMI 26.7
[2024-12-04 02:48] LABS: Basophils # (Auto) 0.1 Thou/mm3 (0.0-0.2); Basophils % (Auto) 1 % (0-2.5); Eosinophils # (Auto) 0.3 Thou/mm3 (0.0-0.5); Eosinophils % (Auto) 3 % (0-10); Hematocrit 42.4 % (41.0-53.0); Hemoglobin 14.3 g/dL (13.5-16.0); Immature Granulocytes Auto 0.03 Thou/mm3 (0.00-0.00); Lymphocytes # (Auto) 1.7 Thou/mm3 (1.0-4.8); Lymphocytes % (Auto) 16 % (10-50); Mean Corpuscular HGB Conc 33.7 g/dl (31.0-37.0); Mean Corpuscular Hemoglobin 31.6 pg (25.0-35.0); Mean Corpuscular Volume 94 fL (80-100); Monocytes # (Auto) 0.7 Thou/mm3 (0.0-0.8); Monocytes % (Auto) 7 % (0-12); Neutrophils # (Auto) 7.6 Thou/mm3 (1.8-7.7); Neutrophils % (Auto) 73 % (37-80); Nucleated Red Blood Cell # 0.00 Thou/mm3 (0.00-0.00); Nucleated Red Blood Cell % 0 /100 WBC (0); Platelet Count 211 Thou/mm3 (140-440); RDW Standard Deviation 45.3 fL (35.1-43.9); Red Blood Count 4.53 Miln/mm3 (4.50-5.90); White Blood Count 10.4 Thou/mm3 (3.8-10.6)
[2024-12-04 03:05] LABS: Alanine Aminotransferase 40 U/L (10-49); Albumin, Serum 3.9 gm/dL (3.5-5.0); Albumin/Globulin Ratio 1.8 (1.2-2.2); Alkaline Phosphatase 47 U/L (46-116); Anion Gap 8 (7-16); Aspartate Amino Transferase 27 U/L (0-34); BUN/Creatinine Ratio 9 Ratio (12-20); Bilirubin,Total 0.8 mg/dL (0.3-1.2); Blood Urea Nitrogen 8 mg/dL (9-23); Calcium 9.2 mg/dL (8.3-10.6); Calcium (Corrected) 9.3 mg/dL (8.5-10.1); Carbon Dioxide 25.7 mMol/L (20.0-31.0); Chloride 108 mMol/L (98-107); Creatinine (Component) 0.9 mg/dL (0.6-1.3); Estimated Creatinine Clearance 85.7 mL/min (>60); Globulin 2.2 gm/dL (2.3-3.5); Glucose 97 mg/dL (74-106); Magnesium 1.5 mg/dL (1.6-2.6); Osmolality,Calculated 281 (275-295); Phosphorous 2.6 mg/dL (2.4-5.1); Potassium 4.8 mMol/L (3.4-5.1); Sodium 142 mMol/L (136-145); Total Protein 6.1 gm/dL (5.7-8.2); eGFR > 60 See Note
[2024-12-04 03:33] LABS: Partial Thromboplastin Time 61.6 Seconds (22.0-36.0)
--- NOTE | 2024-12-04 07:10 | PC.NURSE ---
Pt HR went down to 43, pt sleeping; awakened with no c/o SOB, chest pain/pressure. Pt did not sustain, HR 66 bpm
[2024-12-04] MEDS: Magnesium Sulfate 2 GM Ivpb 2 GM/50 ML BAG IV (08:14)
[2024-12-04] MEDS: METOPROLOL TARTRATE 25 MG TABLET PO (08:14)
[2024-12-04] MEDS: ASPIRIN EC 81 MG TABEC PO (08:14)
[2024-12-04] MEDS: TICAGRELOR 90 MG TABLET PO (08:14)
[2024-12-04] MEDS: NICOTINE PATCH 14 MG/24 HR PATCH.TD24 TOP (08:15)
--- NOTE | 2024-12-04 08:44 | PC.SS ---
Follow up note: Pending cardio recommendations. Pt is possible d/c today.
--- NOTE | 2024-12-04 09:05 | ESDS_ITS ---
<Statement entered by Casey Soto MD - 12/04/24 18:14> I Casey Soto MD reviewed the note and agree with the resident's assessment & plan with modifications/additions/exceptions as below. I have personally reviewed labs, imaging, home meds/prior records, examined the patient, formulated and discussed management plan with the IM team. A 53-year-old male with history of polysubstance use including methamphetamine, HFrEF with EF 30% had a recent OR with PCI in September 2024 presented to ED with atypical chest pain and admitted for NSTEMI. Further evaluation did reveal slightly elevated troponin however flat hued however EKG remained nonischemic. Patient is clinically euvolemic. Will continue aspirin, statin, Brilinta, continue metoprolol 25 mg daily, cont losartan 25 mg daily. DC heparin drip. Cardiology cleared for discharge. Patient initially explicitly refused taking methamphetamine and alcohol however admits taking last dose few days ago. Emilia hearn is fully alert oriented at this point. Planned Discharge Date 12/04/24 DS: Providers Provider Date of admission: 12/03/24 01:51 Primary care physician: Physician No Primary/Family Admitting Provider: Dajuan Hyatt MD Attending Provider on Admission: Dajuan Hyatt MD Consults: 12/03/24 02:24 Consult to Cardiology Routine Comment: Consulting Provider: Edgar Lerma 12/03/24 04:29 [facility] Referral - Nutrition Routine Comment: Positive screening for nutrition needs. [facility] Referral - Transportation Routine Comment: Positive screening for transportation needs. Attending Provider on DC: Casey Soto MD Discharging Provider: Casey Soto MD DS: Diagnosis Problem List Completed Was Problem List Reviewed/Reconciled?: Yes Hospital Course Hospital Course Hospital course: Summary: Raul Ac is a 53M with pmhx significant for STEMI s/p PCI (distal L main and LAD, EF 30% in 09/2024), COPD, HLD, hypotension on midodrine, methamphetamine use and iron deficiency anemia presented to [facility] ED on 12/03 for chest pain, admitted for NSTEMI type II and hypokalemia. Patient presented with pressure- like chest pain localized to the left side of the chest, sometimes worsened on deep inspiration. On admission troponins were elevated with EKG showing no ST segment elevation, peaked and then eventually down trended. Urine drug screen was also positive for amphetamines and potassium was low on admission. Electrolytes were repleted accordingly. Cardiology was consulted and was recommended to continue outpatient medication and no intervention inpatient needed. On discharge, patient is hemodynamically stable, labs and vitals reviewed, asymptomatic and ready to be discharged. Discharge Recommendations: - Please take all medications as prescribed - Start losartan 25 mg daily and hold if SBP <100 - Start metoprolol succinate 25 mg daily - Please continue all other home medications, especially aspirin and Brilinta - Please follow up with your PCP within one week of discharge - Please follow-up with tattoo identifier within 1 to 2 weeks of discharge - If your symptoms worsen, please seek immediate medical attention and return to your nearest emergency room. - If you do not have a PCP, you may follow up at the community healthcare system at [address] [place] [address] [address], [facility] [address], Hospital Diagnoses: #NSTEMI likely type II #HFrEF (EF 30%) 2/2 ischemic cardiomyopathy #Hypokalemia #Hx of hypotension #Methamphetamine dependence #COPD #HLD #Iron deficiency anemia Jennifer Miramontes, DO Internal Medicine, PGY-1 Status at Discharge Cognitive/behavioral status at discharge: Stable Functional status at discharge: independent ambulation Overall status at discharge: patient is back to baseline Time Spent with Patient Time attestation: Total time spent providing and/or coordinating discharge services: Time spent: Greater than 30 minutes Exam Vital Signs Temp Pulse Resp BP Pulse Ox O2 Del Method O2 Flow Rate 98.4 F 69 14 125/89 H 96 Room Air 2 12/04/24 07:55 12/04/24 08:14 12/04/24 07:55 12/04/24 08:14 12/04/24 07:55 12/04/24 07:55 12/03/24 18:53 Narrative Exam GENERAL: AOx3, no acute distress HEENT: NC/AT, mucous membranes moist, bilateral sclera anicteric CARDIOVASCULAR: regular rate and rhythm, S1/S2 present, no murmurs appreciated PULMONARY: clear to auscultation bilaterally, no rales/rhonchi/wheezes ABDOMINAL: soft, non-tender, non-distended, no rebound/guarding, bowel sounds present EXTREMITIES: no peripheral edema SKIN: warm and dry, intact, no rashes NEURO: CN II-XII grossly intact, no focal deficits, alert, following commands Discharge Plan Plan Patient Disposition: HOME (Self Care) Patient condition on transfer: Stable Care Plan Goals: -Start Losartan 25mg daily and Metoprolol succinate 25mg daily -Take all other medications as below -Follow up with PCP in 1-2 weeks, obtain referral for cardiology outpatient -Return to ED if symptoms worsen -Follow-up in [facility] in 1 to 2 weeks. -Call [phone] to make an appointment -Address: [facility], [address], [address], [place], [address] -Return to ED if symptoms return or worsen. Prescriptions/Referrals Prescriptions/Med Rec: New losartan 25 mg tablet 25 mg PO QDAY 30 Days Qty: 30 0RF metoprolol succinate 25 mg tablet extended release 24 hr 25 mg PO QDAY Qty: 30 0RF Continued aspirin 81 mg Tablet,Delayed Release (Dr/Ec) 81 mg PO QDAY 30 Days Qty: 30 3RF atorvastatin 80 mg tablet 80 mg PO HS 30 Days Qty: 30 3RF ticagrelor [Brilinta] 90 mg Tablet 90 mg PO BID 30 Days Qty: 60 3RF (DME) blood pressure monitor [Blood Pressure Kit] Kit See Rx Instructions .Route Qty: 1 0RF Rx Instructions: As directed midodrine 5 mg tablet 5 mg PO TID PRN (Reason: Take if Blood Pressure less 90/60) Qty: 30 0RF Rx Instructions: do not give last dose of day after 6PM or within 4 hrs of bedtime albuterol sulfate 90 mcg/actuation HFA aerosol inhaler 2 puff inhalation Q6H MDD 8 puffs PRN (Reason: shortness of breath or wheezing) Qty: 8.5 0RF Referrals: Jennifer Miramontes, STUDENT RE [Resident] - No Primary/Family,Physician [Primary Care Provider] - Patient/Caregiver Discharge Instructions Discharge Activity: activity as tolerated Education Materials: Tips for Taking Medicines, Your Heart Is at Risk, Warning Signs of a Heart Attack Print Language: Kittitian Stand Alone Forms: Vani Award Info., Patient Portal Info Letter Discharge Order Discharge Orders: Discharge (Routine); Ordered 12/04/24 Ordered By: Bryant Fitzpatrick Quality Discharge Quality Measures VTE prophylaxis
--- NOTE | 2024-12-04 10:07 | EKG_ITS ---
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
--- NOTE | 2024-12-04 10:22 | PC.NURSE ---
PTT lab draw scheduled for 837 this AM;pt on heparin gtt. After reviewing chart, I do not see that it has been drawn. Called lab and notified of order; Suad explains that it has been collected and is in process. Awaiting results.
[2024-12-04 10:45] LABS: Partial Thromboplastin Time 45.7 Seconds (22.0-36.0)
--- NOTE | 2024-12-04 11:15 | PC.NURSE ---
Pt with a HR 33 bpm, didn't sustain. Pt sleeping; awakened with no c/o SOB, chest pain, asymptomatic with current HR [address] Fitzpatrick notified, no new orders at this time.
[2024-12-04] MEDS: Magnesium Sulfate 4 GM Ivpb 4 GM/50 ML BAG IV (11:20)
[2024-12-04] MEDS: Heparin/D5w 25K 250 ML Ivpb 25,000 UNIT/250 ML BAG 12.098 UNIT IV (11:27)
[2024-12-04] MEDS: HEPARIN SOD INJ 5000 UNIT/ML VIAL 2000 UNIT IVP (11:27)
--- NOTE | 2024-12-04 13:48 | PC.SS ---
Pt has positive tox screen for meth and marijuana. SS met with pt who is aware and denies using meth. Pt state he has not used meth only marijuana. Pt states he receives food stamps but was denied SSI. SS offered community resources and pt was receptive.
--- NOTE | 2024-12-04 15:40 | PC.SS ---
SS met with patient regarding his d/c plan. Pt is alert/oriented. Pt was admitted for Chest Pain. Pt confirmed demographic and contact information is correct on facesheet. Pt resides alone on his friends property. Pt ambulates independently without assistance or DME. Pt is ok with all ADLs. Patient?s pharmacy of choice is [facility] [address]. Pt named his dtr, Dia Ac medical decision maker if he is unable. Patient?s choice is to return home upon d/c. Patient's life partner, friend will provide transportation. Pt states he followed up with PCP last week and his next appointment is Dec 19, 2024. D/C plan: Return home Next of Kin: Dia Ac dtr, phone# [phone] PCP: [facility] Address: Correct on facesheet
== END 2024-12-04 14:53 | disposition home or self-care (01) | DRG 190 ==
LOC: SERX 12-03 01:56 → SERHOLD 12-03 02:15 → S2NX 12-03 03:51
PROVIDERS: Admitting Provider Internal Medicine; Emergency Provider Emergency Medicine; Visit Provider Student in an Organized Health Care Education/Training Program
DX: I20.0 Unstable angina (principal); I25.2 Old myocardial infarction; I50.22 Chronic systolic (congestive) heart failure; E78.00 Pure hypercholesterolemia, unspecified; D50.9 Iron deficiency anemia, unspecified; I45.10 Unspecified right bundle-branch block; E87.6 Hypokalemia; I25.5 Ischemic cardiomyopathy; J44.9 Chronic obstructive pulmonary disease, unspecified; F17.210 Nicotine dependence, cigarettes, uncomplicated; F15.23 Other stimulant dependence with withdrawal; I21.A1 Myocardial infarction type 2; Z79.02 Long term (current) use of antithrombotics/antiplatelets; Z79.82 Long term (current) use of aspirin; Z79.899 Other long term (current) drug therapy; Z95.5 Presence of coronary angioplasty implant and graft; Z91.148 Patient's other noncompliance with medication regimen for other reason
CPT/HCPCS: 36415; 71045; 80048; 80053; 80307; 80320; 81001; 83735; 83880; 84100; 84132; 84439; 84443; 84484; 85025; 85379; 85730; 93005; 94640; 94664; 96361; 96365; 96375; 99284; A9270; J1644; J1650; J2270; J2405; J2470; J3475; J3480; J7030; G0480